=== PATIENT | female | born 1935 | race Caucasian/White ===

== ENCOUNTER 2020-06-06 07:45 | Outpatient (RCR) | payer MEDICARE, SELFPAY ==
[2019-12-01 10:46] VITALS: BMI 20.4
== END 2020-06-06 19:00 | disposition home or self-care (01) ==
LOC: PT 07:45
PROVIDERS: PCP Preventive Medicine Occupational Medicine; Referring Provider Specialist; Visit Provider Specialist
DX: M48.07 Spinal stenosis, lumbosacral region (principal); M70.72 Other bursitis of hip, left hip; M21.371 Foot drop, right foot

== ENCOUNTER 2020-07-04 07:39 | Emergency (ER) | payer MEDICARE, SELFPAY ==
[2019-12-01 10:46] VITALS: BMI 20.4
[2020-07-04 07:42] VITALS: BP 158/66; PULSE 59; RESP 16; TEMP 35.8; O2SAT 98; BMI 23.0
--- NOTE | 2020-07-04 07:43 | ED.VIS.GEN ---
History of Present Illness Chief Complaint: Hypoglycemia Limited by: Stupor Onset: Today Narrative: 85-year-old female presenting with hypoglycemia and altered mental status. She was found down on the road the after she went for a walk. On EMS arrival her blood sugar was in the 20s. They did give her D50 and she did come around but after arriving to the ED her blood sugar was again in the 20s. Her stated that she was otherwise well. He believed that she was on Lantus and she had taken this this morning. She does not take any other insulin. She does take metformin at home. He states that there is been no changes in the medications. Past Medical History - Allergies and Home Meds Allergies/Adverse Reactions: Allergies No Known Allergies Allergy (Unverified 12/01/19 10:47) Primary Care Physician: Antonino Rosario DO [Primary Care Provider] - Prior records reviewed: Yes Lives: Spouse/ Significant Other Smoking Status: Never smoker Alcohol: None Drugs: None Review of Systems General: Denies: Chills, Fever, Sweats Eyes: Denies: Visual changes - bilaterally, Diplopia ENT: Denies: Rhinorrhea, Sore throat Cardiovascular: Denies: Chest pain, Palpitations Respiratory: Denies: Dyspnea, Cough, Dyspnea on exertion Gastrointestinal: Denies: Abdominal pain, Nausea, Vomiting, Diarrhea, Melena, Hematochezia Musculoskeletal: Denies: Back pain, Extremity Pain Skin: Denies: Rash, Wounds Neurological: Denies: Headache, Weakness, Numbness Endocrine: Reports: - - Hypoglycemia Physical Exam Inital Vital Signs reviewed: Yes General: Well nourished, Acute Distress, - - Confused Head: Normocephalic, Atraumatic Eyes: Perrl, EOMI ENT: Moist mucous membranes Cardiovascular: Regular rate, Regular rhythm Respiratory: No distress Back: Nontender, Normal Inspection Extremities: Nontender, No edema Neurological: - - Alert but slightly confused. Diagnostic/Tx/Re-eval Clinical Impression(s) from Imaging Studies Brain CT 07/04/20 07:58 IMPRESSION: Chronic involutional changes of the brain. Electronically Signed: Desean Harris, at 9:17 EDT , Service support , Chest X-Ray 07/04/20 07:59 IMPRESSION: Borderline cardiomegaly. The lungs are clear. Electronically Signed: Desean Harris, at 9:17 EDT , Service support , Laboratory Data 07/04/20 07/04/20 07/04/20 08:20 08:20 08:36 WBC 9.2 RBC 3.70 L Hgb 10.5 L Hct 32.9 L MCV 88.9 MCH 28.4 MCHC 31.9 L RDW Std Deviation 44.1 H RDW Coeff of Viraj 13.5 Plt Count 232 MPV 8.5 Immature Gran % (Auto) 0.400 Neut % (Auto) 70.2 H Lymph % (Auto) 18.6 L [place] % (Auto) 9.1 Eos % (Auto) 1.6 Baso % (Auto) 0.1 Absolute Neuts (auto) 6.4 Absolute Lymphs (auto) 1.71 Nucleated RBC % 0 Sodium 140 Potassium 2.9 L Chloride 106 Carbon Dioxide 31.0 Anion Gap 3 L BUN 25 H Creatinine 0.77 Estim Creat Clear Calc 31.60 Est GFR (MDRD) Af Amer 91 Est GFR (MDRD) Non-Af 76 BUN/Creatinine Ratio 32.3 H Glucose 47 L Calcium 8.9 Magnesium 2.2 Total Bilirubin 0.30 AST 24 ALT 33 Alkaline Phosphatase 57 Troponin I < 0.015 Total Protein 6.9 Albumin 3.2 Globulin 3.7 Albumin/Globulin Ratio 0.9 Urine Color Urine Clarity Urine pH Ur Specific [place] Urine Protein Urine Glucose (UA) Urine Ketones Urine Occult Blood Urine Nitrite Urine Bilirubin Urine Urobilinogen Ur Leukocyte Esterase Urine RBC Urine WBC Ur Squamous Epith Cells Urine Bacteria Urine Mucus POC Glucose 29 L* 07/04/20 07/04/20 07/04/20 09:25 09:26 10:08 WBC RBC Hgb Hct MCV MCH MCHC RDW Std Deviation RDW Coeff of Viraj Plt Count MPV Immature Gran % (Auto) Neut % (Auto) Lymph % (Auto) [place] % (Auto) Eos % (Auto) Baso % (Auto) Absolute Neuts (auto) Absolute Lymphs (auto) Nucleated RBC % Sodium Potassium Chloride Carbon Dioxide Anion Gap BUN Creatinine Estim Creat Clear Calc Est GFR (MDRD) Af Amer Est GFR (MDRD) Non-Af BUN/Creatinine Ratio Glucose Calcium Magnesium Total Bilirubin AST ALT Alkaline Phosphatase Troponin I Total Protein Albumin Globulin Albumin/Globulin Ratio Urine Color Straw Urine Clarity Clear Urine pH 7.0 Ur Specific [place] 1.010 Urine Protein 15 H Urine Glucose (UA) 50 H Urine Ketones Negative Urine Occult Blood Negative Urine Nitrite Negative Urine Bilirubin Negative Urine Urobilinogen Normal Ur Leukocyte Esterase 25 H Urine RBC 0 SEEN Urine WBC 0 SEEN Ur Squamous Epith Cells 0 SEEN Urine Bacteria 0 SEEN Urine Mucus 0 SEEN POC Glucose 103 56 L 07/04/20 07/04/20 07/04/20 11:05 12:13 13:12 WBC RBC Hgb Hct MCV MCH MCHC RDW Std Deviation RDW Coeff of Viraj Plt Count MPV Immature Gran % (Auto) Neut % (Auto) Lymph % (Auto) [place] % (Auto) Eos % (Auto) Baso % (Auto) Absolute Neuts (auto) Absolute Lymphs (auto) Nucleated RBC % Sodium Potassium Chloride Carbon Dioxide Anion Gap BUN Creatinine Estim Creat Clear Calc Est GFR (MDRD) Af Amer Est GFR (MDRD) Non-Af BUN/Creatinine Ratio Glucose Calcium Magnesium Total Bilirubin AST ALT Alkaline Phosphatase Troponin I Total Protein Albumin Globulin Albumin/Globulin Ratio Urine Color Urine Clarity Urine pH Ur Specific [place] Urine Protein Urine Glucose (UA) Urine Ketones Urine Occult Blood Urine Nitrite Urine Bilirubin Urine Urobilinogen Ur Leukocyte Esterase Urine RBC Urine WBC Ur Squamous Epith Cells Urine Bacteria Urine Mucus POC Glucose 144 H 222 H 244 H - Rhythm Strip Rhythm Strip: Sinus Rhythm Rate: 52 - EKG Follow-up EKG Interpretation: Sinus Bradycardia - Medical Decision Making She presents with altered mental status and was found in the road by bystanders. EMS did find her blood sugar to be low. She was low again on arrival even after treatment. She was given 2 A of D50 in the ED at this point we decided to start her on D10. Her blood sugar was still dropping and we had to increase the rate of this. We did monitor her blood sugars until they remained higher. Patient was able to eat a meal. Work shows that she is slightly dehydrated. I did confirm that she had a change in medication the nurse did update the med list. Currently takes toujeo 30 units in the morning. She states that this is what she took today. She not has not been monitoring her blood sugars frequently. She states she has had no change in diet. The rest of her work-up was otherwise normal except for mild hypokalemia which was replaced orally. Patient was counseled to take more potassium at home and states that she does have this. EKG is sinus rhythm without signs of ischemia. Chest x-ray and CT of the brain are both negative. I do feel the patient is safe to be discharged home and I did touch base with her primary care provider and he recommended changing the dose of the medication to 25 units. She is to check her blood sugars more frequently. She and her feel comfortable with discharge at this time. Return for any new or worsening symptoms. Impression: 1. Hypoglycemia 2. Altered mental status resolved 3. Hypokalemia 4. Dehydration ED Disposition - Plan for ED Patient: Disposition: Home or Assisted Living Instructions: Hypokalemia, ED HYPOGLYCEMIA Insulin Rxn Referrals: Antonino Rosario DO [Primary Care Provider] -
--- NOTE | 2020-07-04 07:48 | ED.RN ---
NO OLD EKGS
[2020-07-04] MEDS: Dextrose 50%-Water 25 GM/50 ML DISP.SYRIN IV ×2 (07:55→08:39)
--- NOTE | 2020-07-04 07:58 | EKG12_ITS ---
Test Reason : AMS Blood Pressure : / mmHG Vent. Rate : 052 BPM Atrial Rate : 052 BPM P-R Int : 174 ms QRS Dur : 098 ms QT Int : 514 ms P-R-T Axes : 069 -27 025 degrees QTc Int : 478 ms Sinus bradycardia Left ventricular hypertrophy with repolarization abnormality Abnormal ECG Confirmed by RACHELLE OLIVAS, KENDAL ([id number]), editor & co founder CHRISTIAN INIGUEZ ([id number]) on 07/08/2020 10:44:16 AM Referred By: MELVINA Confirmed By:KENDAL BUSH MD
--- NOTE | 2020-07-04 07:58 | CT_ITS ---
STUDY: CT BRAIN WITHOUT CONTRAST REASON FOR EXAM: Female, 85 years old. FELL/DECREASED LOC RADIATION DOSAGE (If Supplied By Facility): CTDIvol = ( 60.81 ) mGy, DLP = ( 1089.89 ) mGycm TECHNIQUE: Transaxial CT imaging of the brain was performed without administration of intravenous contrast material. Individualized dose optimization techniques were used for this CT. COMPARISON: No relevant priors. FINDINGS: Normal soft tissue structures. Normal calvarium. There is mild cerebral atrophy with widening of the extra-axial spaces and ventricular dilatation. There are areas of decreased attenuation within the white matter tracts of the supratentorial brain, consistent with microvascular disease changes. 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 Normal brainstem. Normal cerebellum. There is no intracranial hemorrhage. There are no findings of an acute ischemic infarction. Atherosclerotic plaque formation of the vertebral arteries and cavernous portions of the internal carotid arteries bilaterally. Normal visualized paranasal sinuses. CT/Brain/Head without Contrast IMPRESSION: Chronic involutional changes of the brain. Electronically Signed: Desean Harris, at 9:17 EDT , Service support ,
[2020-07-04 07:59] VITALS: BP 130/53; PULSE 52; RESP 17; O2SAT 96
--- NOTE | 2020-07-04 07:59 | RAD_ITS ---
STUDY: X-RAY CHEST REASON FOR EXAM: Female, 85 years old. dysrhythmia, fell today TECHNIQUE: Single AP portable view of the chest. COMPARISON: None. FINDINGS: EKG electrodes are seen. The lungs are clear and expanded. There is no demonstrated pleural abnormality. There is borderline cardiomegaly. Normal mediastinum and maciej. Normal visualized pulmonary arteries. There is atherosclerotic calcification of the aortic arch with tortuosity. Normal visualized thoracic spine. Healed right rib fracture. There is no demonstrated abnormality of the visualized soft tissue structures of the upper abdomen. RAD/Chest 1 View (Portable) IMPRESSION: Borderline cardiomegaly. The lungs are clear. Electronically Signed: Desean Harris, at 9:17 EDT , Service support ,
[2020-07-04 08:28] LABS: Absolute Lymphocyte Count 1.71 X10^3/uL (0.83-4.51); Absolute Neutrophil Count 6.4 X10^3/uL (2.0-7.7); Basophil# 0.01 X10^3/uL; Basophil% 0.1 % (0-1); Eosinophil# 0.15 X10^3/uL; Eosinophils% 1.6 % (0-5); Hematocrit 32.9 % (37-47); Hemoglobin 10.5 g/dL (12.0-15.0); Lymphocyte # 1.71 X10^3/ul (4.0); Lymphocyte % 18.6 % (19-41); Mean Corp Hgb Conc 31.9 g/dL (32-36); Mean Corpuscular Hgb 28.4 pg (27.0-32.0); Mean Corpuscular Volume 88.9 fL (81-99); Mean Platelet Vol. 8.5 fl (6.2-12.0); Monocyte# 0.83 X10^3/uL; Monocyte% 9.1 % (0-10); NRBC Flagged by Analyzer 0 % (0-5); Neutrophil # 6.43 X10^3/uL (2.7-7.7); Neutrophil % 70.2 % (47-70); Platelet Count 232 K/mm3 (150-450); RBC Distribution Width CV 13.5 % (11.6-14.6); RBC Distribution Width SD 44.1 fl (35.1-43.9); White Blood Count 9.2 K/mm3 (4.4-11.0)
[2020-07-04 08:40] LABS: Bedside Glucose 29 mg/dL (70-110)
[2020-07-04] MEDS: Dextrose 10%-Water 250 ML 20 ML IV (08:54)
[2020-07-04 09:08] LABS: ALB/GLOB Ratio 0.9 RATIO (0.9-2.4); AST(SGOT) 24 U/L (15-37); Alanine Aminotransfer ALT/SGPT 33 U/L (13-56); Albumin, Serum 3.2 g/dL (3.2-5.0); Alkaline Phosphatase 57 U/L (45-117); Anion Gap 3 (5-15); BUN 25 mg/dL (7-18); BUN/Creat Ratio 32.3 RATIO (10-20); Calcium,Total 8.9 mg/dL (8.5-10.1); Chloride 106 mmol/L (98-107); Creatinine, Serum 0.77 mg/dL (0.55-1.02); EST Glomerular Filtration Rate 76 mL/min (>60); Est Glom Filt Rate - Afr Amer 91 mL/min (>60); Globulin 3.7 g/dL (2.2-4.2); Glucose 47 mg/dL (74-106); Magnesium 2.2 mg/dL (1.6-2.6); Potassium 2.9 mmol/L (3.5-5.1); Protein, Total 6.9 g/dL (6.4-8.2); Sodium Level 140 mmol/L (136-145)
[2020-07-04 09:28] LABS: Bacteria 0 SEEN /hpf (None Seen); Mucous, Urine 0 SEEN /hpf (<or=2+); Red Blood Cells-Urine 0 SEEN /hpf (0-5); Squamous Epithelial Cells - UA 0 SEEN /hpf (5-10); White Blood Cells 0 SEEN /hpf (0-5)
[2020-07-04 09:29] LABS: Color, Urine Straw (Yellow); Glucose, Dipstick 50 mg/dl (Normal); Ketone-Dipstick Negative (Negative); Leukocyte Esterase-Dipstick 25 /ul (Negative); Nitrite-Dipstick Negative (Negative); Occult Blood-Urine Negative /ul (Negative); Protein-Dipstick 15 mg/dl (Negative); Urine Bilirubin Dipstick Negative (Negative); Urine Clarity Clear (Clear); Urine Urobilinogen Normal (Normal)
[2020-07-04 09:30] LABS: Bedside Glucose 103 mg/dL (70-110)
[2020-07-04 10:20] LABS: Bedside Glucose 56 mg/dL (70-110)
--- NOTE | 2020-07-04 10:23 | ED.RN ---
pt's blood sugar rechecked and was 56, dr mohamud made aware, D10 increased and pt was given crackers with peanut butter and apple juice
[2020-07-04 11:10] LABS: Bedside Glucose 144 mg/dL (70-110)
[2020-07-04 12:01] VITALS: BP 141/88; PULSE 68; RESP 17
[2020-07-04 12:21] LABS: Bedside Glucose 222 mg/dL (70-110)
[2020-07-04 13:21] LABS: Bedside Glucose 244 mg/dL (70-110)
[2020-07-04 14:48] VITALS: BP 134/77; PULSE 66; RESP 15; O2SAT 95
[2020-07-04 15:55] LABS: Bedside Glucose 26 mg/dL (70-110)
[2020-07-04 15:55] LABS: Bedside Glucose 101 mg/dL (70-110)
== END 2020-07-04 14:49 | disposition home or self-care (01) ==
PROVIDERS: Emergency Provider Student in an Organized Health Care Education/Training Program; PCP Preventive Medicine Occupational Medicine
DX: E16.2 Hypoglycemia, unspecified (principal); E87.6 Hypokalemia; E86.0 Dehydration; R41.82 Altered mental status, unspecified
CPT/HCPCS: 70450; 71045; 80053; 81001; 82962; 83735; 84484; 85025; 93005; 96361; 96365; 96366; 96375; 96376; 99285; A4216

== ENCOUNTER → 2020-07-09 08:33 | Outpatient (CLI) | payer MEDICARE, SELFPAY ==
[2019-12-01 10:46] VITALS: BMI 20.4
[2020-07-04 07:42] VITALS: BMI 23.0
--- NOTE | 2020-07-09 09:51 | NEURO ---
NCS and/or EMG Patient Report Ordering Doctor: Judson Dhaliwal DATE OF SERVICE: 07/09/20
--- NOTE | 2020-07-09 12:25 | NEURO ---
NCS and/or EMG Patient Report Ordering Doctor: Judson Dhaliwal DATE OF SERVICE: 07/09/20 Geraldine Leslie presents for electrodiagnostic testing of the right lower limb. 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 Electrodiagnostic findings: Absent right peroneal motor response. Normal right tibial motor latency and amplitude with normal conduction velocity. Normal sural, superficial peroneal and medial plantar responses. H reflex is prolonged on the right side. On needle EMG, fibrillation potentials are noted in the right. BLS anterior. Tibialis with a decreased recruitment pattern and decreased amplitude of motor units. Decreased recruitment noted in the right peroneus longus. There is no denervation noted in the tibial innervated gastrocnemius as well as the sciatic innervated internal and external hamstrings. No denervation noted in the lumbosacral paraspinals. Electrodiagnostic impression: This is an abnormal study in the right lower limb. 1. 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 There is accompanying atrophy noted in the right tibialis anterior. There is no electrodiagnostic evidence noted for sciatic neuropathy as denervation is not noted in the hamstrings. Would recommend repeat study in 4 to 6 months to reevaluate peroneal nerve function. If there are any further questions, please do not hesitate to contact me
== END ==
PROVIDERS: PCP Preventive Medicine Occupational Medicine; Referring Provider Specialist; Visit Provider Specialist
DX: M21.371 Foot drop, right foot (principal)
CPT/HCPCS: 95886; 95910

== ENCOUNTER 2021-02-06 16:33 | Observation (INO) | payer MEDICARE, SELFPAY ==
[2021-02-06 16:35] VITALS: BP 168/76; PULSE 67; RESP 14; TEMP 36.4; O2SAT 97; BMI 20.1
--- NOTE | 2021-02-06 18:07 | EKG12_ITS ---
Test Reason : DYSRHYTHMIA Blood Pressure : / mmHG Vent. Rate : 060 BPM Atrial Rate : 060 BPM P-R Int : 000 ms QRS Dur : 088 ms QT Int : 426 ms P-R-T Axes : 000 -41 076 degrees QTc Int : 426 ms Sinus rhythm Left axis deviation Left ventricular hypertrophy with repolarization abnormality Abnormal ECG Confirmed by DOUGLAS OLIVAS, JEFF ([id number]), social media editor CHRISTIAN INIGUEZ ([id number]) on 02/09/2021 10:33:10 A M Referred By: RAMONA Confirmed By:ROBERT COLE MD
[2021-02-06] MEDS: Morphine 2 MG/ML Syringe IV ×2 (18:34→20:12)
[2021-02-06] MEDS: 0.9% Normal Saline 1,000 ML 1000 ML IV (18:35)
--- NOTE | 2021-02-06 18:40 | RAD_ITS ---
INDICATION: weakness EXAMINATION/TECHNIQUE: X-RAY - XR Chest 1 View COMPARISON: 07/04/2020. FINDINGS: The lungs are clear. Tortuous and calcified thoracic aorta. The heart is not enlarged. No pleural effusion or pneumothorax. The osseous structures are unremarkable. RAD/Chest 1 View (Portable) IMPRESSION: No acute radiographic abnormalities. Electronically Signed: Erickson Mercer MD at 19:03 EST Tel , Service support ,
[2021-02-06 18:53] LABS: Absolute Lymphocyte Count 1.47 X10^3/uL (0.83-4.51); Absolute Neutrophil Count 5.6 X10^3/uL (2.0-7.7); Basophil# 0.03 X10^3/uL; Basophil% 0.4 % (0-1); Eosinophil# 0.16 X10^3/uL; Hematocrit 38.7 % (37-47); Hemoglobin 13.2 g/dL (12.0-15.0); Lymphocyte # 1.47 X10^3/ul (4.0); Lymphocyte % 18.1 % (19-41); Mean Corp Hgb Conc 34.1 g/dL (32-36); Mean Corpuscular Hgb 28.9 pg (27.0-32.0); Mean Corpuscular Volume 84.9 fL (81-99); Mean Platelet Vol. 8.3 fl (6.2-12.0); Monocyte# 0.79 X10^3/uL; Monocyte% 9.7 % (0-10); NRBC Flagged by Analyzer 0 % (0-5); Neutrophil # 5.62 X10^3/uL (2.7-7.7); Neutrophil % 69.3 % (47-70); Platelet Count 310 K/mm3 (150-450); RBC Distribution Width CV 15.4 % (11.6-14.6); RBC Distribution Width SD 47.8 fl (35.1-43.9); Red Blood Count 4.56 M/mm3 (4.2-5.4); White Blood Count 8.1 K/mm3 (4.4-11.0)
--- NOTE | 2021-02-06 18:55 | ED.DCSUM_ITS ---
History of Present Illness Chief Complaint: Other, Pain/Inj Informant: Patient, Family Onset: Weeks Context: Gradual Onset Timing: Continuous Narrative: She is an 86-year-old female with history including insulin-dependent diabetes mellitus and hypertension presenting from home with her daughter for worsening left hip pain. Patient's had worsening left hip pain for the past 2 to 3 weeks. States the pain radiates down her buttocks and all the way to her foot. She does that she has a chronic foot drop of the right and usually depends on her left extremity more for walking. She is seeing her orthopedist, Dr. Dhaliwal, who performed an x-ray as well as a CT which did not show any acute process however he was unable to evaluate further for pelvic anomaly due to prosthesis of the left hip. She has a MRI scheduled for a week from today. Patient is currently on tramadol and is starting to have increased confusion and is still having significant pain. In addition she is been dealing with constipation associate with the tramadol. Patient is also been alternating Tylenol and ibuprofen for her pain. Patient was home with her who has sciatica and it is not able to help for her more. The family is unable to stay with her. They are concerned that she can no longer care for herself and is also acting more confused. Patient is having a hard time remembering her exact medications per the daughter. Patient has had decreased oral intake and is been complain of a dry mouth and also states she is drinking a lot of water. She denies any nausea or vomiting. She denies any associated abdominal pain. She denies any new injuries. Past Medical History - Allergies and Home Meds Allergies/Adverse Reactions: Allergies No Known Allergies Allergy (Verified 02/06/21 17:36) Primary Care Physician: Antonino Rosario DO [Primary Care Provider] - Past Medical History: - - Insulin-dependent diabetes mellitus, hypertension, hemorrhoids Surgical History: - - Left total hip, right partial hip Lives: Spouse/ Significant Other Smoking Status: Never smoker - Family History Maternal Family History: Reports: Heart Disease Review of Systems General: Reports: Weight loss. Denies: Chills, Fever, Sweats Eyes: Denies: Visual changes - bilaterally, Diplopia ENT: Reports: - - Dry mouth. Denies: Rhinorrhea, Sore throat Cardiovascular: Denies: Chest pain, Palpitations Respiratory: Denies: Dyspnea, Cough, Dyspnea on exertion Gastrointestinal: Reports: Constipation. Denies: Abdominal pain, Nausea, Vomiting, Diarrhea, Melena, Hematochezia Genitourinary: Denies: Dysuria, Hematuria, Frequency Musculoskeletal: Reports: Extremity Pain - Left hip and rating down the entire leg. Denies: Back pain, Swelling Skin: Denies: Rash, Wounds Neurological: Denies: Headache, Weakness, Numbness Endocrine: Reports: Polyuria, Polydipsia Physical Exam Vital Signs/Narrative: Vital Signs Temp Pulse Resp BP Pulse Ox 02/06/21 16:35 97.6 F L 67 14 168/76 H 97 Inital Vital Signs reviewed: Yes General: Well nourished, Well developed, No Acute Distress Head: Normocephalic, Atraumatic Eyes: Perrl, EOMI ENT: No rhinorrhea, Dry mucous membranes Neck: Supple, Nontender, No JVD Cardiovascular: Regular rate, Regular rhythm, No murmurs Respiratory: No distress, CTA bilaterally, Chest nontender Abdomen: Soft, Nontender, Nondistended, Normal bowel sounds Back: Nontender, Normal Inspection Extremities: No edema, Tenderness - Diffuse tenderness of the entire left lower extremity, - - No obvious deformity of the leg. Normal range of motion. Legs are equal length with no rotational abnormalities. Skin: Normal color, No rash Neurological: Alert, Oriented x3, Cranial nerves II-XII grossly intact, Normal Strength, Normal Sensation Psychological: Normal affect, Normal Mood Diagnostic/Tx/Re-eval Chest X-Ray - ED: 1 View, Read by ED Physician, No Acute Disease, - - Hyper inflated - Rhythm Strip Rhythm Strip: Sinus Rhythm Rate: 60 Ectopy: None - EKG Initial EKG Interpretation: Sinus Rhythm, - - Normal sinus rhythm at a rate of 60 Left axis deviation LVH Nonspecific T wave changes Normal intervals No change prior to prior EKG on 07/04/2020 - Medical Decision Making Patient is evaluated for progressively worsening left hip pain. In addition patient had increased confusion especially about her medications per her daughter and decreased oral intake. Patient's not been eating as much however she has been drinking more water because she feels that her mouth has been dry. Subsequently she has had increased urination. Patient lives home with her who does have a history of sciatica and feeling states is not very helpful because of this. No reported new injuries. Patient has had a generalized weakness and confusion so a metabolic infectious work-up is obtained. She has a normal neurologic exam and I do not think a head CT is ind icated. Patient has had evaluation of her hip including a CT and an x-ray by her orthopedist so did not repeat any imaging.Patient is dosed with 2 mg of IV morphine which does provide some temporary relief but she does require second dose. Her CBC is relatively normal. CMP is remarkable for hyponatremia of 128, hypokalemia of 3.4 and elevated carbon dioxide of 36. Patient states she does have a history of severe hyponatremia requiring hospitalization however this is worse than her last checkup. Urinalysis does show does show protein, glucose and occult blood but does not show any signs of infection. Troponin is normal. Chest x-ray does not show any acute process by my interpretation. Patient is neurovascularly intact. I do not think she requires emergent imaging for her hip however I am concerned about her ability to take care of her self at home especially as she is on high risk medications including IV insulin as well as multiple blood pressure medications. In addition patient has been more foggy and confused and not sure she is safe to go home. She is not having adequate pain control with tramadol and given her confusion she is already having I do not feel comfortable increasing her pain regimen at home. Patient does have mild hyponatremia. She is given IV fluids in the ER. Should be admitted for further evaluation of her hyponatremia as well as for evaluation of her hip pain and for pain control. Patient and family are amenable to rehab if deemed necessary. ED Disposition - Plan for ED Patient: Disposition: Acute Care [facility] Diagnosis: Acute left hip pain, Hypokalemia, Chronic hyponatremia Referrals: Antonino Rosario DO [Primary Care Provider] -
[2021-02-06 19:11] LABS: ALB/GLOB Ratio 0.9 RATIO (0.9-2.4); AST(SGOT) 37 U/L (15-37); Alanine Aminotransfer ALT/SGPT 37 U/L (13-56); Albumin, Serum 3.6 g/dL (3.2-5.0); Alkaline Phosphatase 60 U/L (45-117); Anion Gap 6 (5-15); BUN 13 mg/dL (7-18); BUN/Creat Ratio 17.4 RATIO (10-20); Calcium,Total 9.2 mg/dL (8.5-10.1); Chloride 86 mmol/L (98-107); Creatinine, Serum 0.75 mg/dL (0.55-1.02); EST Glomerular Filtration Rate 79 mL/min (>60); Est Glom Filt Rate - Afr Amer 95 mL/min (>60); Estimated Creatinine Clearance 32.47 ml/min; Glucose 125 mg/dL (74-106); Potassium 3.4 mmol/L (3.5-5.1); Protein, Total 7.6 g/dL (6.4-8.2); Sodium Level 128 mmol/L (136-145)
[2021-02-06 19:39] LABS: Bacteria 0 SEEN /hpf (None Seen); Mucous, Urine 0 SEEN /hpf (<or=2+); Squamous Epithelial Cells - UA 0 SEEN /hpf (5-10)
[2021-02-06 19:42] LABS: Color, Urine Yellow (Yellow); Glucose, Dipstick 100 mg/dl (Normal); Ketone-Dipstick Negative (Negative); Leukocyte Esterase-Dipstick Negative /ul (Negative); Nitrite-Dipstick Negative (Negative); Occult Blood-Urine 10 /ul (Negative); Protein-Dipstick 30 mg/dl (Negative); Urine Bilirubin Dipstick Negative (Negative); Urine Clarity Clear (Clear); Urine Urobilinogen Normal (Normal)
[2021-02-06 20:09] VITALS: BP 166/59; PULSE 71; RESP 16; O2SAT 96
[2021-02-06 20:49] LABS: Red Blood Cells-Urine 0-5 SEEN /hpf (0-5); White Blood Cells 0-5 SEEN /hpf (0-5)
[2021-02-06 21:08] VITALS: BP 157/71; PULSE 76; RESP 18; TEMP 36.6; O2SAT 95
[2021-02-06] MEDS: Potassium Chloride Oral Tablet 20 MEQ 40 MEQ PO (21:26)
[2021-02-06 22:01] VITALS: BMI 18.9
[2021-02-06 22:08] VITALS: BP 128/102; PULSE 69; RESP 18; TEMP 36.5; O2SAT 96
[2021-02-06 22:13] VITALS: BMI 19.0
[2021-02-06 22:18] LABS: Phosphorus 2.5 mg/dL (2.5-4.9)
--- NOTE | 2021-02-06 22:27 | PCM.HP.STD ---
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 Pain has been disabling and crippling that she cannot ambulate. She follows Dr. Dhaliwal and is scheduled for MRI on Tuesday. Patient also has chronic right foot drop after fall with resulting into the right hip fracture status post hemiarthroplasty about 1 or 2 years ago. She had left hip replacement about [address] Dhaliwal. She also complains of coccygeal pain. She denies any acute symptoms related to cauda equina-like acute urinary incontinence, retention or fecal incontinence. Patient states she gets groggy and confused on taking tramadol and probably has mild dementia. She is not clear any specific of the nature and characteristic of pain. She has x-rays and CT scan of left hip and pelvis done by Dr. Dhaliwal in the office is not available to review here. Chest x-ray done in ER does not show acute cardiopulmonary abnormality although not reported Past Medical History Past Medical History (Chronic Problems): Chronic Problems (Last Updated 12/01/19 @ 10:54 by Coleen Keane) Arthritis of left sacroiliac joint (Chronic) Hypertension (Chronic) Chronic hyponatremia (Chronic) Medical History: Medical History (Last Updated 12/01/19 @ 10:54 by Coleen Keane) Bloody stool K92.1 Diabetes E11.9 Hemorrhoids K64.9 HTN (hypertension) I10 Allergies No Known Allergies Allergy (Verified 02/06/21 17:36) Home Medications: Ambulatory Orders Medication Instructions Recorded amlodipine 10 mg tablet 10 mg PO DAILY 12/01/19 ascorbic acid (vitamin C) 1,000 mg 1,000 mg PO DAILY 12/01/19 tablet biotin 10,000 mcg capsule 1 cap PO DAILY 12/01/19 cholecalciferol (vitamin D3) 125 1 tab PO DAILY 12/01/19 mcg (5,000 unit) disintegrating tablet cinnamon bark 500 mg capsule 500 mg PO DAILY 12/01/19 coenzyme Q10 100 mg capsule 100 mg PO DAILY 12/01/19 garlic extract 600 mg tablet 600 mg PO DAILY 12/01/19 marine (Zingiber officinalis) 550 550 mg PO DAILY 12/01/19 mg capsule lutein 40 mg capsule 40 mg PO DAILY 12/01/19 magnesium 250 mg tablet 250 mg PO DAILY 12/01/19 metformin 500 mg tablet,extended 250 mg PO BID 12/01/19 release 24 hr metoprolol tartrate 50 mg tablet 100 mg PO QHS 12/01/19 niacin 500 mg tablet 1,000 mg PO DAILY 12/01/19 omega-3 acid ethyl esters 1 gram 2 cap PO BID 12/01/19 capsule red yeast rice 600 mg capsule 600 mg PO BID 12/01/19 turmeric 400 mg capsule 400 mg PO BID 12/01/19 Insulin Glargine,Hum.rec.anlog 23 unit SQ BREAKFAST 07/04/20 [Toumaricruz Thurmanostisrael] Metoprolol Tartrate 50 mg PO BREAKFAST 07/04/20 Triamterene 37.5MG/Hctz 25MG 1 cap PO DAILY PRN 07/04/20 [Dyazide (G)] Zinc Gluconate [Zinc] 100 mg PO DAILY 07/04/20 traMADol [Ultram (G)] 1 - 2 mg PO Q8 02/06/21 Surgical History: Surgical History (Last Updated 12/01/19 @ 10:54 by Coleen Keane) History of hip replacement Z96.649 Surgical History: - - Left total hip, right partial hip Lives: Spouse/ Significant Other Smoking Status: Never smoker - *Family History Maternal History Items: Heart Disease Review of Systems Constitutional: Denies: Chills, Fever, Weight Change HEENT: Denies: Head Aches, Sinus Congestion, Sinus Drainage Cardiovascular: Denies: Chest Pain, Palpitations Respiratory: Denies: Cough, Shortness of breath at rest, Sputum production Gastrointestinal: Denies: Abdominal Pain, Nausea, Vomiting Genitourinary: Denies: Dysuria, Frequency Musculoskeletal: Denies: Joint Pain, Joint Tenderness Skin: Denies: Rash, Wounds Neurological: Reports: Balance problems, Focal weakness, Incoordination. Denies: Numbness, Tingling Psychiatric: Reports: Anxiety, Depression. Denies: Homicidal Ideations, Suicidal Ideations Hematologic/ Lymphatic: Denies: Easy Bruising, Easy Bleeding VTE Information - Inpt Only VTE Present on Admission: No VTE Mechan Device Prophylaxis: None VTE Pharm Prophylaxis ordered?: Yes Objective: General: Alert, Oriented x3, Cooperative HEENT: Atraumatic, PERRLA, EOMI, Normocephalic Oral: No Gingival or Mucosal Lesions/ Ulcerations Neck: Supple, No JVD, Negative Carotid Bruits Lungs: Air entry equal in bilateral lung bases. No crepitation/rhonchi Cardiovascular: Regular rate, Regular Rhythm, Normal S1, Normal S2, No murmurs Abdomen: Bowel Sounds Present, Soft, Non Tender, Non-Distended : No renal angle tenderness. No suprapubic tenderness. Extremities: No edema, Capillary Refill Less than 3 Seconds chronic left foot drop on splint/brace Skin: No rashes, No breakdown Musculoskeletal: Mild tenderness at the left hip joint, deep at SI joint and around greater trochanter. ROM limited at left hip joint Spine: SLR negative at 30 degrees in both lower extremities. Point tenderness at coccyx. Neurological: Cranial nerves II-XII grossly intact, Deep Tendon Reflexes 2+/4 and Symmetrical, Neuro grossly intact Psych/Mental Status: Normal Affect, Appropriate. - Physical Exam Vitals/I&O's: Vital Signs Temp Pulse Resp BP Pulse Ox 97.7 F L 69 18 128/102 H 96 02/06/21 22:08 02/06/21 22:08 02/06/21 22:08 02/06/21 22:08 02/06/21 22:08 Oxygen Delivery Method Room Air Weight: 103 lb 9.876 oz Body Mass Index (BMI) 18.9 Finger Stick Blood Glucose 222 Intake and Output for Last 24 Hours 02/04/21 02/05/21 02/06/21 23:59 23:59 23:59 Intake Total 1000 / 1000 Balance 1000 / 1000 Laboratory Results 02/06/21 16:35: Urine Color Yellow, Urine Clarity Clear, Urine pH 7.0, Ur Specific [place] 1.010, Urine Protein 30 H, Urine Glucose (UA) 100 H, Urine Ketones Negative, Urine Occult Blood 10 H, Urine Nitrite Negative, Urine Bilirubin Negative, Urine Urobilinogen Normal, Ur Leukocyte Esterase Negative, Urine RBC 0-5 SEEN, Urine WBC 0-5 SEEN, Ur Squamous Epith Cells 0 SEEN, Urine Bacteria 0 SEEN, Urine Mucus 0 SEEN 02/06/21 18:41: WBC 8.1, RBC 4.56, Hgb 13.2, Hct 38.7, MCV 84.9, MCH 28.9, MCHC 34.1, RDW Std Deviation 47.8 H, RDW Coeff of Viraj 15.4 H, Plt Count 310, MPV 8.3, Immature Gran % (Auto) 0.500, Neut % (Auto) 69.3, Lymph % (Auto) 18.1 L, [place] % (Auto) 9.7, Eos % (Auto) 2.0, Baso % (Auto) 0.4, Absolute Neuts (auto) 5.6, Absolute Lymphs (auto) 1.47, Nucleated RBC % 0 02/06/21 18:41: Sodium 128 L, Potassium 3.4 L, Chloride 86 L, Carbon Dioxide 36.0 H, Anion Gap 6, BUN 13, Creatinine 0.75, Estim Creat Clear Calc 32.47, Est GFR (MDRD) Af Amer 95, Est GFR (MDRD) Non-Af 79, BUN/Creatinine Ratio 17.4, Glucose 125 H, Calcium 9.2, Total Bilirubin 0.50, AST 37, ALT 37, Alkaline Phosphatase 60, Troponin I < 0.015, Total Protein 7.6, Albumin 3.6, Globulin 4.0, Albumin/Globulin Ratio 0.9 02/06/21 18:41: Phosphorus 2.5, Magnesium 2.0 Current Medications Sodium Chloride () 250 mls @ 15 mls/hr IV .[id number] PRN PRN Reason: Saline Flush Sodium Chloride () 250 mls @ 15 mls/hr IV .[id number] PRN PRN Reason: Additional IVPB Infusion Potassium Chloride (Potassium Chloride Oral Tablet 20 Meq) 40 meq PO Q3H PAZ Stop: 02/07/21 00:01 Last Admin: 02/06/21 21:26 Dose: 40 meq Documented by: Sodium Chloride (0.9% Saline Lock 10 Ml Syringe) 10 - 40 ml IV UD PRN PRN Reason: SALINE FLUSH Assessment/Plan All Active Problems (Last Updated 12/01/19 @ 10:54 by Coleen Keane) Acute left hip pain (Acute) Diabetes 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 (Acute) Hypokalemia (Acute) 1. Acute debility secondary to left hip pain/SI joint pain: It seems acute exacerbation of chronic arthritis with inability to ambulate. Patient admitted to [facility]. Pain control. PT and OT evaluation and patient might need rehab placement. MRI of pelvis joint ordered after I talked to Dr. Dhaliwal. He prefers to be called after the MRI report although he is out of town. UA is negative. 2. Bilateral hip joint replacement, arthritis, chronic right foot drop on a splint 3. Hypertension: Blood pressure is normal 128/102 although it was elevated 168/76 in ED 4. Hypotonic hypovolemic hyponatremia, acute on chronic from diuretics: Patient is on triamterene/HCTZ. IV fluid normal saline for total of 2 L. Mild hypokalemia, potassium replaced. Serum magnesium and phosphorus are normal. Repeat lab tomorrow a.m. 5. Diabetes mellitus type 2: Patient is on Lantus continued. Accu-Chek is in just continue sliding scale. 6. 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 Prophylaxis: Lovenox 40 mg subcu daily. Living will/advanced directive/end of life care: Patient does not have living will or advanced directive. After discussion of benefits/risks procedures involved with full code, DNR CC arrest and DNR CC, the patient opted for DNR-CC Arrest with no intubation Patient does not want artificial life support including intubation, tube feed, ventilator and/chest compression, central venous catheter, vasopressor and DC shock if needed Total time spent in [id number] encounter in discussion of advanced directive 16 minutes. OBSV E&M: 53205 Initial observation care L3 Procedures: 34774 Advncd Care Plan 30 Min
[2021-02-06 22:30] VITALS: O2SAT 96
[2021-02-06] MEDS: oxyCODONE 5 MG Tablet PO (23:04)
[2021-02-06] MEDS: Senna/Docusate Sodium 1 Tablet 2 TABLET PO (23:04)
[2021-02-06] MEDS: Acetaminophen 325 MG Tablet 650 MG PO (23:04)
[2021-02-06] MEDS: 0.9% Normal Saline 1,000 ML 100 ML IV (23:08)
[2021-02-06 23:17] VITALS: BP 162/51
[2021-02-06 23:31] LABS: Bedside Glucose 110 mg/dL (70-110)
[2021-02-07] VITALS (7 sets, daily range): BP systolic 147–181; BP diastolic 59–80; PULSE 57–80; RESP 16–18; TEMP 36.2–37.4; O2SAT 96–100; BMI 18.9
[2021-02-07] MEDS: Potassium Chloride Oral Tablet 20 MEQ 40 MEQ PO ×2 (00:40→11:57)
[2021-02-07] MEDS: 0.9% Saline Lock 10 ML Syringe IV (02:56)
[2021-02-07] MEDS: Morphine 2 MG/ML Syringe IV (02:57)
[2021-02-07] MEDS: Metoprolol Tartrate 50 MG Tablet PO ×2 (04:59→21:29)
--- NOTE | 2021-02-07 05:55 | MRI_ITS ---
STUDY: MR PELVIS WITHOUT CONTRAST REASON FOR EXAM: Female, 86 years old. Left SI joint, pelvic/hip pain TECHNIQUE: Standardized fat and water weighted pulse sequences were obtained in all 3 orthogonal planes. COMPARISON: None. FINDINGS: Normal urinary bladder. Normal visualized small intestine. Normal visualized colon. There is no pelvic fluid. There is no pelvic mass lesion or lymphadenopathy. Normal visualized pelvic arteries. Normal osseous structures. There is very little soft tissue overlying the coccyx raising the possibility of a decubitus ulcer. However, there is no evidence of soft tissue edema to suggest cellulitis and no loculated fluid collection to suggest abscess. There is no bony destruction or marrow edema to suggest osteomyelitis. Status post bilateral hip arthroplasty with artifact. MRI/Pelvis (Routine) IMPRESSION: Questionable decubitus ulcer overlying the coccyx but no MR evidence of cellulitis abscess or osteomyelitis. Clinical correlation is recommended. Otherwise a normal MRI of the pelvis. Electronically Signed: Jaren Monroe MD at 13:19 EST Tel , Service support ,
[2021-02-07 06:45] LABS: Bedside Glucose 112 mg/dL (70-110)
--- NOTE | 2021-02-07 07:47 | PCM.PN.HOSP ---
Patient Problems: Active and Suspected Problems (Last Updated 12/01/19 @ 10:54 by Coleen Keane) Acute left hip pain (Acute) Diabetes 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 (Acute) Hypokalemia (Acute) Reason for Visit: Adult failure to thrive Left hip pain Subjective: Patient is an 86-year-old lady with multiple comorbidities including osteoarthritis with previous right hip total replacement who presented with significant left hip pain admitted to a monitored bed for subsequent evaluation Objective: GENERAL: cooperative HEENT: Atraumatic; EYES; Anicteric, Normal Conjunctiva NECK; supple, normal thyroid, RESPIRATORY: Diminished to auscultation CARDIOVASCULAR: Regular S1 S2, GI: soft, normoactive bowel sounds, : No Renal angle tenderness; EXTREMITIES: Right lower foot in a brace MUSCULOSKELETAL: no muscle waisting NEURO: Awake; no lateralizing signs. SKIN: No Rash PSYCH; Flat affect Vitals/I&O's: Vital Signs Temp Pulse Resp BP Pulse Ox 99.0 F 60 16 150/70 H 99 02/07/21 07:41 02/07/21 07:41 02/07/21 07:41 02/07/21 07:41 02/07/21 07:41 Oxygen Delivery Method Room Air Weight: 47 kg Body Mass Index (BMI) 18.9 Finger Stick Blood Glucose 222 Intake and Output for Last 24 Hours 02/05/21 02/06/21 02/07/21 23:59 23:59 23:59 Intake Total 1300 / 1300 600 / 600 Output Total 200 / 200 1250 / 1250 Balance 1100 / 1100 -650 / -650 Laboratory Results 02/06/21 16:35: Urine Color Yellow, Urine Clarity Clear, Urine pH 7.0, Ur Specific [place] 1.010, Urine Protein 30 H, Urine Glucose (UA) 100 H, Urine Ketones Negative, Urine Occult Blood 10 H, Urine Nitrite Negative, Urine Bilirubin Negative, Urine Urobilinogen Normal, Ur Leukocyte Esterase Negative, Urine RBC 0-5 SEEN, Urine WBC 0-5 SEEN, Ur Squamous Epith Cells 0 SEEN, Urine Bacteria 0 SEEN, Urine Mucus 0 SEEN 02/06/21 18:41: WBC 8.1, RBC 4.56, Hgb 13.2, Hct 38.7, MCV 84.9, MCH 28.9, MCHC 34.1, RDW Std Deviation 47.8 H, RDW Coeff of Viraj 15.4 H, Plt Count 310, MPV 8.3, Immature Gran % (Auto) 0.500, Neut % (Auto) 69.3, Lymph % (Auto) 18.1 L, [place] % (Auto) 9.7, Eos % (Auto) 2.0, Baso % (Auto) 0.4, Absolute Neuts (auto) 5.6, Absolute Lymphs (auto) 1.47, Nucleated RBC % 0 02/06/21 18:41: Sodium 128 L, Potassium 3.4 L, Chloride 86 L, Carbon Dioxide 36.0 H, Anion Gap 6, BUN 13, Creatinine 0.75, Estim Creat Clear Calc 32.47, Est GFR (MDRD) Af Amer 95, Est GFR (MDRD) Non-Af 79, BUN/Creatinine Ratio 17.4, Glucose 125 H, Calcium 9.2, Total Bilirubin 0.50, AST 37, ALT 37, Alkaline Phosphatase 60, Troponin I < 0.015, Total Protein 7.6, Albumin 3.6, Globulin 4.0, Albumin/Globulin Ratio 0.9 02/06/21 18:41: Phosphorus 2.5, Magnesium 2.0 02/06/21 23:14: POC Glucose 110 02/07/21 05:39: POC Glucose 112 H Current Medications Acetaminophen (Acetaminophen 325 Mg Tablet) 650 mg PO Q6H PRN PRN PRN Reason: Pain Score 1-10/Temp > 100.7 F Last Admin: 02/06/21 23:04 Dose: 650 mg Documented by: Amlodipine Besylate (Amlodipine 10 Mg Tablet) 10 mg PO DAILY PAZ Ascorbic Acid (Ascorbic Acid 500 Mg Tablet) 1,000 mg PO DAILY PAZ Dextrose (Dextrose 50%-Water 25 Gm/50 Ml Disp.Syrin) 0 gm IV X1 PRN; Protocol PRN Reason: Hypoglycemia Enoxaparin Sodium (Enoxaparin 40 Mg/0.4 Ml Syringe) 40 mg SC DAILY PAZ Glucagon (Glucagon 1 Mg/Ml Syringe) 1 mg IM .X1 PRN PRN Reason: Hypoglycemia Sodium Chloride () 250 mls @ 15 mls/hr IV .[id number] PRN PRN Reason: Saline Flush Sodium Chloride () 250 mls @ 15 mls/hr IV .[id number] PRN PRN Reason: Additional IVPB Infusion Sodium Chloride () 1,000 mls @ 100 mls/hr IV .Q10H [facility] Stop: 02/07/21 18:42 Last Admin: 02/06/21 23:08 Dose: 100 mls/hr Documented by: Insulin Glargine (Insulin Glargine 100 Units/Ml Pen) 23 units SC BREAKFAST [facility] Insulin Human Lispro (Insulin Lispro 100 Unit/Ml Insuln.Pen) 0 unit SC ACHS [facility]; Protocol Last Admin: 02/07/21 07:40 Dose: Not Given Documented by: Magnesium Chloride (Magnesium Chloride 64 Mg Delay Rel.Tablet) 64 mg PO DAILY [facility] Metformin HCl (Metformin (Xr) 500 Mg Tablet) 500 mg PO TIDCM [facility] Metoprolol Tartrate (Metoprolol Tartrate 50 Mg Tablet) 50 mg PO QHS [facility] Metoprolol Tartrate (Metoprolol Tartrate 50 Mg Tablet) 50 mg PO BREAKFAST [facility] Last Admin: 02/07/21 04:59 Dose: 50 mg Documented by: Morphine Sulfate (Morphine 2 Mg/Ml Syringe) 2 mg IV Q3H PRN PRN PRN Reason: Pain Score 6-10 Last Admin: 02/07/21 02:57 Dose: 2 mg Documented by: Nitroglycerin (Nitroglycerin (Inpatient Use) 0.4 Mg Tab.Subl) 0.4 mg SL Q5M PRN PRN Reason: CARDIAC/CHEST PAIN Nutritional Formula (Lactose Free) (Ensure Enlive 120 Ml Liquid) 120 ml PO 4X/DAY [facility] Oxycodone HCl (Oxycodone 5 Mg Tablet) 5 mg PO Q4H PRN PRN PRN Reason: Pain Score 4-5 Last Admin: 02/06/21 23:04 Dose: 5 mg Documented by: Prochlorperazine Edisylate (Prochlorperazine 10 Mg/2 Ml Vial) 5 mg IV Q4H PRN PRN PRN Reason: Breakthrough nausea/vomiting Senna/Docusate Sodium (Senna/Docusate Sodium 1 Tablet) 2 tablet PO BID PRN PRN PRN Reason: Constipation Last Admin: 02/06/21 23:04 Dose: 2 tablet Documented by: Sodium Chloride (0.9% Saline Lock 10 Ml Syringe) 10 - 40 ml IV UD PRN PRN Reason: SALINE FLUSH Last Admin: 02/07/21 02:56 Dose: 10 ml Documented by: STROKE Vital Signs/Narrative: Vital Signs Temp Pulse Resp BP Pulse Ox 02/07/21 07:41 99.0 F 60 16 150/70 H 99 02/07/21 04:59 72 181/72 H 02/07/21 04:56 98.4 F 72 18 181/72 H 100 Medical Necessity - Tobacco Use Smoking Status: Never smoker Assessment/Plan All Active Problems (Last Updated 12/01/19 @ 10:54 by Coleen Keane) Acute left hip pain (Acute) Diabetes 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 (Acute) Hypokalemia (Acute) Patient is an 86-year-old lady with multiple comorbidities including osteoarthritis with previous right hip total replacement who presented with significant left hip pain admitted to a monitored bed for subsequent evaluation 1. Physical debility ?Secondary to significant left hip pain. Admitted to a monitored bed for symptomatic management. As part of patient's management consult was placed to Dr. Dhaliwal with orthopedic surgery who recommended obtaining MRI of the pelvis 2. History of right total hip replacement ?This was complicated by right foot drop patient in a brace 3. Hypertension - Blood pressure controlled, home medications continued with dose adjustment as needed 4. Hyponatremia ?Secondary to patient being on HCTZ 5. Hypokalemia ?Corrected per protocol 6. Diabetes mellitus type II -patient's oral hypoglycemics held. Placed on long acting insulin, Accu-Cheks a.c. and at bedtime and covered with sliding scale insulin 7. DVT prophylaxis ?Lovenox OBSV E&M: 63307 Subsequent observation care L2
[2021-02-07] MEDS: metFORMIN (XR) 500 MG Tablet PO (08:05)
[2021-02-07] MEDS: oxyCODONE 5 MG Tablet PO ×4 (08:05→23:45)
[2021-02-07 08:33] LABS: Anion Gap 6 (5-15); BUN 7 mg/dL (7-18); BUN/Creat Ratio 11.8 RATIO (10-20); Chloride 94 mmol/L (98-107); Creatinine, Serum 0.59 mg/dL (0.55-1.02); EST Glomerular Filtration Rate 103 mL/min (>60); Est Glom Filt Rate - Afr Amer 124 mL/min (>60); Estimated Creatinine Clearance 30.52 ml/min; Glucose 121 mg/dL (74-106); Potassium 3.2 mmol/L (3.5-5.1); Sodium Level 132 mmol/L (136-145)
--- NOTE | 2021-02-07 10:40 | NT.THERAPY_ITS ---
Nutrition Therapy Report - History Nutrition Services has been consulted to:: Manage nutrient details of diet order Current diet / nutrition support order:: regular, ensure enlive 120mL 4x/day - Anthropometric Measurements Height:: 5 ft 2 in Weight:: 47 kg Body Mass Index (BMI):: 18.9 - Relevant Labs Relevant Labs:: RDW Std Deviation 47.8 fl (35.1-43.9) H 02/06/21 18:41 RDW Coeff of Viraj 15.4 % (11.6-14.6) H 02/06/21 18:41 Lymph % (Auto) 18.1 % (19-41) L 02/06/21 18:41 Sodium 132 mmol/L (136-145) L 02/07/21 07:38 Potassium 3.2 mmol/L (3.5-5.1) L 02/07/21 07:38 Chloride 94 mmol/L (98-107) L 02/07/21 07:38 Carbon Dioxide 36.0 mmol/L (21.0-32.0) H 02/06/21 18:41 Glucose 121 mg/dL (74-106) H 02/07/21 07:38 - Assessment Food / Nutrition-Related History:: Reports decline in appetite/intake chronically w/ recent worsening of PO intake d/t difficulty chewing. Describes fair intake at breakfast this AM. Believes UBW ~111# a couple of weeks ago, CBW 103.6#-7.4#/6.6% wt loss is significant for malnutrition. Tries to follow a low sugar diet at home. SMBG 2-3x/day w/ readings ranging from 110-140mg/dL. Does not drink ONS at home- adds a whey powder to cereal sometimes. Nutrition focused physical exam suggests severe muscle wasting and fat loss in upper extremities, acromion, and clavicle region. Pt has poor dentition and requests soft foods/cut up meats. - Nutrition Diagnosis Problem / Etiology / Signs & Symptoms (PES):: severe, acute malnutrition related to inadequate energy intake d/t pain, difficulty chewing as evidenced by wt loss of 7.4#/6.6% <1 month, estimated PO intake meeting <75% of nutritional needs, and severe muscle wasting/fat loss Evidence of Malnutrition Exists:: Yes Severe PCM:: Acute Illness - Nutrition Intervention Nutrition Prescription:: 8196-1375 calories/day (30 calories/kg). 45-55 g protein/day (1 g/kg). 1410mL fluid/day (30mL/kg) - Food / Nutrient Delivery Interventions Summary of nutrition intervention:: Pt has not yet tried ensure this admission- encouragement provided to try ONS. Discussed need for adequate protein. Pt ag reeable to selecting soft foods and having cut up meats provided from kitchen. Helped pt w/ meal selections and lunch order placed. Nutrition support ordered as / adjusted to:: Continue regular diet; will provide chopped up meats per pt request; continue ensure enlive 120mL 4x/day. Recommend RESPIRATORY THERAPY DIRECTOR consult if chewing difficulties continue to interfere w/ PO intake. - MNT Monitoring Further MNT monitoring and evaluation required?: Yes MNT Follow-up in:: 3-5 days
[2021-02-07] MEDS: Enoxaparin 40 MG/0.4 ML Syringe SC (10:55)
[2021-02-07] MEDS: 0.9% Normal Saline 1,000 ML 100 ML IV (10:55)
[2021-02-07] MEDS: Magnesium Chloride 64 MG Delay Rel.Tablet PO (10:56)
[2021-02-07] MEDS: Ascorbic Acid 500 MG Tablet 1000 MG PO (10:56)
[2021-02-07] MEDS: amLODIPine 10 MG Tablet PO (10:57)
[2021-02-07 12:06] LABS: Bedside Glucose 88 mg/dL (70-110)
--- NOTE | 2021-02-07 13:55 | CASEMGMT ---
SW met w/pt and in room in regard to prior level of function and anticipated discharge plan. Pt alert and able to answer most questions, though at times seemed to lose her place in answering questions and just needed a bit of redirection. PCP: Dr. Rosario Specialists: Dr. Cornejo for her eyes, Dr. Dhaliwal--orthopedic doc Insurance/Prescription Coverage: [facility] Living arrangements: Pt lives with in a condo, no steps to enter. Pt was able to complete her own ADLs until this leg pain recently started, then was pushing pt around the home on her rollator. Pt normally cooks, sets up her meds, completes personal ADLs. Pt does not take a shower but sponge bathes. was helping w/cleaning however he has an injury(sounds to be a hernia or sciatic pain from their description ) and is having a tougher time with this. is more the water tanker driver. Pt's daughter does also help pt with her medication as per . LNOK: , daughter SNF/HHC/DME: Pt reports to have been to the [facility] unit in the past, and if possible would like to go there again. Pt has a walker, rollator and raised toilet seat. Pt has had home health, pt and cannot remember agency however. SW spoke w/pt and in regard to discharge plan. Pt is agreeable to go somewhere for rehab. She has been to [facility], to their swing unit in the past, but from how pt explains it, pt had [place] [employer] Medicare at that time. SW did provide a list of nursing homes that includes quality and resource use data and is consistent w/pt's preferred geographic region, medial needs, and insurance network. SW explained that [facility] is not on the list but we can check on Tuesday to see if they take pt's insurance. Pt informed SW that she went there in the past, but again we reviewed that her insurance is different now and that we can check Tuesday to see if [facility] will take [facility]. We reviewed other options, and TCU is their next choice. SW explained to pt and that SW on Tuesday will follow up w/them as far as referral to SNF, will see if [facility] takes pt's insurance and if not will make a referral to TCU. Pt and state understanding. SW did call the TCU referral line and left a message. SW will follow up on Tuesday. JOSE Martinez
[2021-02-07] MEDS: Potassium Chloride Oral Tablet 20 MEQ PO (16:59)
[2021-02-07 17:00] LABS: Bedside Glucose 81 mg/dL (70-110)
[2021-02-07 21:30] LABS: Bedside Glucose 70 mg/dL (70-110)
[2021-02-08] VITALS (10 sets, daily range): BP systolic 143–200; BP diastolic 63–95; PULSE 82–102; RESP 16–18; TEMP 36.4–37.2; O2SAT 96–99
[2021-02-08] MEDS: oxyCODONE 5 MG Tablet PO ×4 (04:47→22:42)
[2021-02-08] MEDS: Triamterene 37.5MG/Hctz 25MG Capsule 1 CAP PO (05:43)
[2021-02-08 05:51] LABS: Bedside Glucose 131 mg/dL (70-110)
--- NOTE | 2021-02-08 07:27 | PN_ITS ---
Patient Problems: Active and Suspected Problems (Last Updated 12/01/19 @ 10:54 by Coleen Keane) Acute left hip pain (Acute) Diabetes 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 (Acute) Hypokalemia (Acute) Reason for Visit: Adult failure to thrive Left hip pain Subjective: Patient is an 86-year-old lady with multiple comorbidities including osteoarthritis with previous right hip total replacement who presented with significant left hip pain admitted to a monitored bed for subsequent evaluation 02/08/2021; imaging studies obtained on admission demonstrated Questionable decubitus ulcer overlying the coccyx but no MR evidence of cellulitis abscess or osteomyelitis.. Consult placed to case management plan is for patient to be transferred to TCU pending bed availability and insurance approval Objective: GENERAL: cooperative HEENT: Atraumatic; EYES; Anicteric, Normal Conjunctiva NECK; supple, normal thyroid, RESPIRATORY: Diminished to auscultation CARDIOVASCULAR: Regular S1 S2, GI: soft, normoactive bowel sounds, : No Renal angle tenderness; EXTREMITIES: Right lower foot in a brace MUSCULOSKELETAL: no muscle waisting NEURO: Awake; no lateralizing signs. SKIN: No Rash PSYCH; Flat affect Vitals/I&O's: Vital Signs Temp Pulse Resp BP Pulse Ox 97.5 F L 82 16 179/71 H 98 02/08/21 04:46 02/08/21 04:46 02/08/21 04:46 02/08/21 04:46 02/08/21 04:46 Oxygen Delivery Method Room Air Weight: 47 kg Body Mass Index (BMI) 18.9 Finger Stick Blood Glucose 222 Intake and Output for Last 24 Hours 02/06/21 02/07/21 02/09/21 23:59 23:59 00:59 Intake Total 1300 / 1300 2408.33 / 2658.33 450 / 450 Output Total 200 / 200 1250 / 1350 500 / 500 Balance 1100 / 1100 1158.33 / 1308.33 -50 / -50 Laboratory Results 02/07/21 05:39: POC Glucose 112 H 02/07/21 07:38: Sodium 132 L, Potassium 3.2 L, Chloride 94 L, Carbon Dioxide 32.0, Anion Gap 6, BUN 7, Creatinine 0.59, Estim Creat Clear Calc 30.52, Est GFR (MDRD) Af Amer 124, Est GFR (MDRD) Non-Af 103, BUN/Creatinine Ratio 11.8, Glucose 121 H, Calcium 9.0 02/07/21 11:55: POC Glucose 88 02/07/21 16:52: POC Glucose 81 02/07/21 21:25: POC Glucose 70 02/08/21 05:43: POC Glucose 131 H Current Medications Acetaminophen (Acetaminophen 325 Mg Tablet) 650 mg PO Q6H PRN PRN PRN Reason: Pain Score 1-10/Temp > 100.7 F Last Admin: 02/06/21 23:04 Dose: 650 mg Documented by: Amlodipine Besylate (Amlodipine 10 Mg Tablet) 10 mg PO DAILY [facility] Last Admin: 02/07/21 10:57 Dose: 10 mg Documented by: Ascorbic Acid (Ascorbic Acid 500 Mg Tablet) 1,000 mg PO DAILY [facility] Last Admin: 02/07/21 10:56 Dose: 1,000 mg Documented by: Dextrose (Dextrose 50%-Water 25 Gm/50 Ml Disp.Syrin) 0 gm IV X1 PRN; Protocol PRN Reason: Hypoglycemia Enoxaparin Sodium (Enoxaparin 40 Mg/0.4 Ml Syringe) 40 mg SC DAILY [facility] Last Admin: 02/07/21 10:55 Dose: 40 mg Documented by: Glucagon (Glucagon 1 Mg/Ml Syringe) 1 mg IM .X1 PRN PRN Reason: Hypoglycemia Hydralazine HCl (Hydralazine 20 Mg/Ml Vial) 10 mg IV Q4H PRN PRN PRN Reason: SBP>185 Insulin Glargine (Insulin Glargine 100 Units/Ml Pen) 23 units SC BREAKFAST [facility] Last Admin: 02/07/21 08:07 Dose: 23 u Documented by: Insulin Human Lispro (Insulin Lispro 100 Unit/Ml Insuln.Pen) 0 unit SC ACHS [facility]; Protocol Last Admin: 02/08/21 06:37 Dose: Not Given Documented by: Magnesium Chloride (Magnesium Chloride 64 Mg Delay Rel.Tablet) 64 mg PO DAILY [facility] Last Admin: 02/07/21 10:56 Dose: 64 mg Documented by: Metoprolol Tartrate (Metoprolol Tartrate 50 Mg Tablet) 50 mg PO BREAKFAST [facility] Last Admin: 02/07/21 04:59 Dose: 50 mg Documented by: Metoprolol Tartrate (Metoprolol Tartrate 100 Mg Tablet) 100 mg PO QHS [facility] Morphine Sulfate (Morphine 2 Mg/Ml Syringe) 2 mg IV Q3H PRN PRN PRN Reason: Pain Score 6-10 Last Admin: 02/07/21 02:57 Dose: 2 mg Documented by: Nitroglycerin (Nitroglycerin (Inpatient Use) 0.4 Mg Tab.Subl) 0.4 mg SL Q5M PRN PRN Reason: CARDIAC/CHEST PAIN Nutritional Formula (Lactose Free) (Ensure Enlive 120 Ml Liquid) 120 ml PO 4X/DAY PAZ Last Admin: 02/07/21 21:30 Dose: Not Given Documented by: Oxycodone HCl (Oxycodone 5 Mg Tablet) 5 mg PO Q4H PRN PRN PRN Reason: Pain Score 4-5 Last Admin: 02/08/21 04:47 Dose: 5 mg Documented by: Potassium Chloride (Potassium Chloride Oral Tablet 20 Meq) 20 meq PO DAILYCM [facility] Prochlorperazine Edisylate (Prochlorperazine 10 Mg/2 Ml Vial) 5 mg IV Q4H PRN PRN PRN Reason: Breakthrough nausea/vomiting Senna/Docusate Sodium (Senna/Docusate Sodium 1 Tablet) 2 tablet PO BID PRN PRN PRN Reason: Constipation Last Admin: 02/06/21 23:04 Dose: 2 tablet Documented by: Sodium Chloride (0.9% Saline Lock 10 Ml Syringe) 10 - 40 ml IV UD PRN PRN Reason: SALINE FLUSH Last Admin: 02/07/21 02:56 Dose: 10 ml Documented by: Triamterene/Hydrochlorothiazide (Triamterene 37.5mg/Hctz 25mg Capsule) 1 cap PO DAILY PRN PRN PRN Reason: Swelling Last Admin: 02/08/21 05:43 Dose: 1 cap Documented by: STROKE Vital Signs/Narrative: Vital Signs Temp Pulse Resp BP Pulse Ox 02/08/21 04:46 97.5 F L 82 16 179/71 H 98 Medical Necessity - Tobacco Use Smoking Status: Never smoker Assessment/Plan All Active Problems (Last Updated 12/01/19 @ 10:54 by Coleen Keane) Acute left hip pain (Acute) Diabetes 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 (Acute) Hypokalemia (Acute) Patient is an 86-year-old lady with multiple comorbidities including osteoarthritis with previous right hip total replacement who presented with significant left hip pain admitted to a monitored bed for subsequent evaluation 1. Physical debility ?Secondary to significant left hip pain. Admitted to a monitored bed for symptomatic management. As part of patient's management consult was placed to Dr. Dhaliwal with orthopedic surgery who recommended obtaining MRI of the pelvis -02/08/2021; imaging studies obtained on admission demonstrated Questionable decubitus ulcer overlying the coccyx but no MR evidence of cellulitis abscess or osteomyelitis.. Consult placed to case management plan is for patient to be transferred to TCU pending bed availability and insurance approval 2. History of right total hip replacement ?This was complicated by right foot drop patient in a brace 3. Hypertension - Blood pressure controlled, home medications continued with dose adjustment as needed 4. Hyponatremia ?Secondary to patient being on HCTZ 5. Hypokalemia ?Corrected per protocol 6. Diabetes mellitus type II -patient's oral hypoglycemics held. Placed on long acting insulin, Accu-Cheks a.c. and at bedtime and covered with sliding scale insulin 7. DVT prophylaxis ?Lovenox Inpatient E&M: 92535 [facility] Hosp L2
[2021-02-08] MEDS: Potassium Chloride Oral Tablet 20 MEQ PO (07:46)
[2021-02-08] MEDS: Magnesium Chloride 64 MG Delay Rel.Tablet PO (07:47)
[2021-02-08] MEDS: Metoprolol Tartrate 50 MG Tablet PO (07:47)
[2021-02-08] MEDS: Ascorbic Acid 500 MG Tablet 1000 MG PO (07:47)
[2021-02-08] MEDS: amLODIPine 10 MG Tablet PO (07:47)
[2021-02-08] MEDS: Enoxaparin 40 MG/0.4 ML Syringe SC (07:47)
[2021-02-08 09:22] LABS: Hematocrit 40.4 % (37-47); Mean Corp Hgb Conc 32.2 g/dL (32-36); Mean Corpuscular Hgb 27.9 pg (27.0-32.0); Mean Corpuscular Volume 86.7 fL (81-99); Mean Platelet Vol. 7.9 fl (6.2-12.0); Platelet Count 305 K/mm3 (150-450); RBC Distribution Width SD 50.3 fl (35.1-43.9); Red Blood Count 4.66 M/mm3 (4.2-5.4); White Blood Count 8.7 K/mm3 (4.4-11.0)
[2021-02-08 09:36] LABS: Anion Gap 9 (5-15); BUN 15 mg/dL (7-18); BUN/Creat Ratio 18.1 RATIO (10-20); Calcium,Total 9.4 mg/dL (8.5-10.1); Chloride 90 mmol/L (98-107); Creatinine, Serum 0.83 mg/dL (0.55-1.02); EST Glomerular Filtration Rate 70 mL/min (>60); Est Glom Filt Rate - Afr Amer 84 mL/min (>60); Estimated Creatinine Clearance 36.77 ml/min; Glucose 309 mg/dL (74-106); Magnesium 1.7 mg/dL (1.6-2.6); Potassium 3.9 mmol/L (3.5-5.1); Sodium Level 127 mmol/L (136-145)
[2021-02-08] MEDS: Insulin Lispro 100 UNIT/ML INSULN.PEN SC ×2 (11:27→21:08)
[2021-02-08 11:41] LABS: Bedside Glucose 332 mg/dL (70-110)
[2021-02-08] MEDS: Acetaminophen 325 MG Tablet 650 MG PO (16:46)
[2021-02-08] MEDS: hydrALAZINE 20 MG/ML Vial 10 MG IV (19:31)
[2021-02-08] MEDS: Metoprolol Tartrate 100 MG Tablet PO (20:59)
[2021-02-08 21:50] LABS: Bedside Glucose 194 mg/dL (70-110)
[2021-02-08 22:35] LABS: Bedside Glucose 80 mg/dL (70-110)
[2021-02-08] MEDS: hydrALAZINE 25 MG Tablet PO (22:41)
[2021-02-09] VITALS (10 sets, daily range): BP systolic 152–192; BP diastolic 57–92; PULSE 75–86; RESP 16–18; TEMP 36.7–37.2; O2SAT 96–99
[2021-02-09 02:19] LABS: Urine Chloride 55 mmol/L (Not Establ.); Urine Sodium 28 mmol/L (Not Establ.)
[2021-02-09] MEDS: oxyCODONE 5 MG Tablet PO ×4 (05:57→21:17)
[2021-02-09] MEDS: hydrALAZINE 25 MG Tablet PO ×3 (05:57→21:17)
[2021-02-09 06:36] LABS: Hematocrit 36.4 % (37-47); Hemoglobin 12.5 g/dL (12.0-15.0); Mean Corp Hgb Conc 34.3 g/dL (32-36); Mean Corpuscular Hgb 29.1 pg (27.0-32.0); Mean Corpuscular Volume 84.7 fL (81-99); Platelet Count 277 K/mm3 (150-450); RBC Distribution Width CV 15.9 % (11.6-14.6); RBC Distribution Width SD 48.6 fl (35.1-43.9); White Blood Count 9.2 K/mm3 (4.4-11.0)
[2021-02-09] MEDS: Insulin Lispro 100 UNIT/ML INSULN.PEN SC ×3 (06:57→16:49)
[2021-02-09 06:58] LABS: Anion Gap 6 (5-15); BUN 21 mg/dL (7-18); BUN/Creat Ratio 40.2 RATIO (10-20); Calcium,Total 9.1 mg/dL (8.5-10.1); Chloride 87 mmol/L (98-107); Creatinine, Serum 0.52 mg/dL (0.55-1.02); EST Glomerular Filtration Rate 118 mL/min (>60); Est Glom Filt Rate - Afr Amer 143 mL/min (>60); Estimated Creatinine Clearance 30.52 ml/min; Glucose 144 mg/dL (74-106); Magnesium 1.9 mg/dL (1.6-2.6); Potassium 3.9 mmol/L (3.5-5.1); Sodium Level 124 mmol/L (136-145)
[2021-02-09 07:05] LABS: Bedside Glucose 188 mg/dL (70-110)
--- NOTE | 2021-02-09 09:11 | CASEMGMT ---
Addendum entered by Emily Robertson 02/09/21 11:05: ALLIE placed another call to [facility] [place] and left message for Shaina inquiring if they accept pt's insurance or not. ALLIE still waiting for call back. Original Note: Social Work Note SW placed a call to Shaina at [facility] and left message inquiring if they accept pt's insurance. ALLIE waiting for call back. Emily Robertson BROADCAST JOURNALIST, HAND BINDER CUTTER
[2021-02-09] MEDS: amLODIPine 10 MG Tablet PO (09:43)
[2021-02-09] MEDS: Metoprolol Tartrate 50 MG Tablet PO (09:43)
[2021-02-09] MEDS: Ascorbic Acid 500 MG Tablet 1000 MG PO (09:43)
[2021-02-09] MEDS: Magnesium Chloride 64 MG Delay Rel.Tablet PO (09:43)
[2021-02-09] MEDS: Potassium Chloride Oral Tablet 20 MEQ PO (09:43)
[2021-02-09] MEDS: 0.9% Saline Lock 10 ML Syringe IV (09:44)
[2021-02-09] MEDS: Acetaminophen 325 MG Tablet 650 MG PO (09:44)
[2021-02-09] MEDS: Senna/Docusate Sodium 1 Tablet 2 TABLET PO ×2 (09:44→21:17)
[2021-02-09] MEDS: 0.9% Normal Saline 1,000 ML 200 ML IV (09:45)
[2021-02-09] MEDS: Enoxaparin 40 MG/0.4 ML Syringe SC (09:46)
--- NOTE | 2021-02-09 10:22 | CASEMGMT ---
SHANNON CM in to complete SCOTT form with patient. RN SAMUEL explained SCOTT form to patient, patient voiced understanding. Patient signed SCOTT form and filed in chart. Patient provided with copy of signed SCOTT form. Patient had no further questions or concerns at this time.
--- NOTE | 2021-02-09 11:30 | CASEMGMT ---
Addendum entered by Emily Robertson 02/09/21 13:59: ALLIE placed a call to [facility] and spoke with Neelam. SW asked Neelam about referral. Neelam states TCU has no beds available. SW informed Neelam that this worker spoke with staff earlier who had told this worker that they did have beds available. Neelam states they did have beds available but got 7 new admissions today so now they have no beds available. SW asked when they will have a bed available next. Neelam states they will have two discharges tomorrow but those beds have been called for as other pt's have received authorization and are waiting for beds. Neelam confirms no beds until maybe the end of the week. ALLIE informed Neelam to disregard referral then. ALLIE in to speak with pt. Pt currently on bathroom but door is open. Pt's present in room. SW updated pt and pt's that [facility] is now stating they have no beds available. SW informed pt and pt's that as far as this worker knows, pt's name is still on [facility] TCU list. Pt and pt's agreeable to [facility] TCU. ALLIE placed a call to Maria D with TCU. Maria D to submit for pre-cert. Plan: TCU pending pre-cert Original Note: Social Work Note SW received call from Karina at [facility] stating this worker needs to speak to the Transition Department ([phone]). ALLIE placed a call to The Transition [facility] and spoke with Staff. Staff state they do take pt's [employer] Medicare and states they have open beds available, requested referral be faxed to [phone]. ALLIE in to speak with pt. ALLIE updated pt that [facility] TCU is stating they do accept pt's insurance. Pt confirms she would like to try [facility] first as she has been there before. ALLIE faxed referral to [facility] TCU. SW waiting for call back to determine if they can accept pt or not. Plan: [facility] TCU pending acceptance and pre-cert Emily Robertson MILL REPRESENTATIVE, SUPERVISOR SANDING
[2021-02-09 11:50] LABS: Bedside Glucose 172 mg/dL (70-110)
--- NOTE | 2021-02-09 13:31 | PCM.PN.HOSP ---
Patient Problems: Active and Suspected Problems (Last Updated 12/01/19 @ 10:54 by Coleen Keane) Acute left hip pain (Acute) Diabetes 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 (Acute) Hypokalemia (Acute) Subjective: still with pain in left hip. Vitals/I&O's: Vital Signs Temp Pulse Resp BP Pulse Ox 37.1 C 86 18 182/80 H 98 02/09/21 09:41 02/09/21 09:43 02/09/21 09:41 02/09/21 09:41 02/09/21 09:41 Oxygen Delivery Method Room Air Weight: 47 kg Body Mass Index (BMI) 18.9 Finger Stick Blood Glucose 222 Intake and Output for Last 24 Hours 02/07/21 02/08/21 02/09/21 22:59 23:59 23:59 Intake Total 550 / 550 Output Total 1200 / 1200 Balance -650 / -650 General: Alert, No apparent distress HEENT: Atraumatic, Normocephalic Oral: Moist Mucosa, No Gingival or Mucosal Lesions/ Ulcerations Neck: No Nodes, Thyroid Normal Size and Texture Lungs: Clear to auscultation, Normal air movement, No rhonchi, No wheeze, No rales Cardiovascular: Regular rate, Regular Rhythm, Normal S1, Normal S2, No murmurs Abdomen: Bowel Sounds Present, Soft, Non Tender, Non-Distended, No Hepato-splenomegaly Extremities: No edema, No Calf Tenderness Psych/Mental Status: Normal Affect, Appropriate Laboratory Results 02/08/21 17:20: POC Glucose 80 02/08/21 20:44: POC Glucose 194 H 02/09/21 02:00: Ur Random Sodium 28, Urine Creatinine 47.50, Urine Potassium 63.0, Urine Chloride 55 02/09/21 06:26: WBC 9.2, RBC 4.30, Hgb 12.5, Hct 36.4 L, MCV 84.7, MCH 29.1, MCHC 34.3 D, RDW Std Deviation 48.6 H, RDW Coeff of Viraj 15.9 H, Plt Count 277, MPV 8.0 02/09/21 06:26: Sodium 124 L, Potassium 3.9, Chloride 87 L, Carbon Dioxide 31.0, Anion Gap 6, BUN 21 H, Creatinine 0.52 L, Estim Creat Clear Calc 30.52, Est GFR (MDRD) Af Amer 143, Est GFR (MDRD) Non-Af 118, BUN/Creatinine Ratio 40.2 H, Glucose 144 H, Calcium 9.1, Magnesium 1.9 02/09/21 06:53: POC Glucose 188 H 02/09/21 11:41: POC Glucose 172 H Current Medications Acetaminophen (Acetaminophen 325 Mg Tablet) 650 mg PO Q6H PRN PRN PRN Reason: Pain Score 1-10/Temp > 100.7 F Last Admin: 02/09/21 09:44 Dose: 650 mg Documented by: Amlodipine Besylate (Amlodipine 10 Mg Tablet) 10 mg PO DAILY [facility] Last Admin: 02/09/21 09:43 Dose: 10 mg Documented by: Ascorbic Acid (Ascorbic Acid 500 Mg Tablet) 1,000 mg PO DAILY [facility] Last Admin: 02/09/21 09:43 Dose: 1,000 mg Documented by: Dextrose (Dextrose 50%-Water 25 Gm/50 Ml Disp.Syrin) 0 gm IV X1 PRN; Protocol PRN Reason: Hypoglycemia Enoxaparin Sodium (Enoxaparin 40 Mg/0.4 Ml Syringe) 40 mg SC DAILY [facility] Last Admin: 02/09/21 09:46 Dose: 40 mg Documented by: Glucagon (Glucagon 1 Mg/Ml Syringe) 1 mg IM .X1 PRN PRN Reason: Hypoglycemia Hydralazine HCl (Hydralazine 20 Mg/Ml Vial) 10 mg IV Q4H PRN PRN PRN Reason: SBP>185 Last Admin: 02/08/21 19:31 Dose: 10 mg Documented by: Hydralazine HCl (Hydralazine 25 Mg Tablet) 25 mg PO TID [facility] Last Admin: 02/09/21 05:57 Dose: 25 mg Documented by: Sodium Chloride () 1,000 mls @ 200 mls/hr IV .Q5H [facility] Stop: 02/09/21 13:34 Last Admin: 02/09/21 09:45 Dose: 200 mls/hr Documented by: Insulin Glargine (Insulin Glargine 100 Units/Ml Pen) 23 units SC BREAKFAST [facility] Last Admin: 02/09/21 09:42 Dose: 23 u Documented by: Insulin Human Lispro (Insulin Lispro 100 Unit/Ml Insuln.Pen) 0 unit SC ACHS [facility]; Protocol Last Admin: 02/09/21 11:43 Dose: 2 u Documented by: Magnesium Chloride (Magnesium Chloride 64 Mg Delay Rel.Tablet) 64 mg PO DAILY [facility] Last Admin: 02/09/21 09:43 Dose: 64 mg Documented by: Metoprolol Tartrate (Metoprolol Tartrate 50 Mg Tablet) 50 mg PO BREAKFAST [facility] Last Admin: 02/09/21 09:43 Dose: 50 mg Documented by: Metoprolol Tartrate (Metoprolol Tartrate 100 Mg Tablet) 100 mg PO QHS [facility] Last Admin: 02/08/21 20:59 Dose: 100 mg Documented by: Morphine Sulfate (Morphine 2 Mg/Ml Syringe) 2 mg IV Q3H PRN PRN PRN Reason: Pain Score 6-10 Last Admin: 02/07/21 02:57 Dose: 2 mg Documented by: Nitroglycerin (Nitroglycerin (Inpatient Use) 0.4 Mg Tab.Subl) 0.4 mg SL Q5M PRN PRN Reason: CARDIAC/CHEST PAIN Nutritional Formula (Lactose Free) (Ensure Enlive 120 Ml Liquid) 120 ml PO 4X/DAY [facility] Last Admin: 02/09/21 09:26 Dose: Not Given Documented by: Oxycodone HCl (Oxycodone 5 Mg Tablet) 5 mg PO Q4H PRN PRN PRN Reason: Pain Score 4-5 Last Admin: 02/09/21 09:44 Dose: 5 mg Documented by: Potassium Chloride (Potassium Chlor[facility] Oral [facility]t 20 [facility]) [facility] Last Admin: 02/09/21 09:43 Dose: 20 meq Documented by: Prochlorperazine Edisylate (Prochlorperazine 10 Mg/2 Ml Vial) 5 mg IV Q4H PRN PRN PRN Reason: Breakthrough nausea/vomiting Senna/Docusate Sodium (Senna/Docusate Sodium 1 Tablet) 2 tablet PO BID PRN PRN PRN Reason: Constipation Last Admin: 02/09/21 09:44 Dose: 2 tablet Documented by: Sodium Chloride (0.9% Saline Lock 10 Ml Syringe) 10 - 40 ml IV UD PRN PRN Reason: SALINE FLUSH Last Admin: 02/09/21 09:44 Dose: 10 ml Documented by: STROKE Vital Signs/Narrative: Vital Signs Temp Pulse Resp BP Pulse Ox 02/09/21 09:43 86 02/09/21 09:41 37.1 C 86 18 182/80 H 98 Medical Necessity - Tobacco Use Smoking Status: Never smoker Assessment/Plan All Active Problems (Last Updated 12/01/19 @ 10:54 by Coleen Keane) Acute left hip pain (Acute) Diabetes 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 (Acute) Hypokalemia (Acute) 1. left hip pain work up unremarkable follow up with orthopaedics PRN 2. Hyponatremia ongoing plan: IVF recheck 3. Debility eventually to SNF. OBSV E&M: 83140 Subsequent observation care L2
[2021-02-09 14:46] LABS: Anion Gap 7 (5-15); BUN 22 mg/dL (7-18); BUN/Creat Ratio 30.5 RATIO (10-20); Calcium,Total 8.7 mg/dL (8.5-10.1); Chloride 93 mmol/L (98-107); Creatinine, Serum 0.72 mg/dL (0.55-1.02); EST Glomerular Filtration Rate 82 mL/min (>60); Est Glom Filt Rate - Afr Amer 99 mL/min (>60); Estimated Creatinine Clearance 30.52 ml/min; Glucose 128 mg/dL (74-106); Potassium 3.5 mmol/L (3.5-5.1); Sodium Level 128 mmol/L (136-145)
--- NOTE | 2021-02-09 15:15 | CASEMGMT ---
Social Work Note Per admissions counselor questions, pt has completed HCPOA and LW and provided copies to [facility]. SW reviewed chart, no copies on file. SW updated pt that no copies were found on chart. Emily Robertson BAKERY TEAM MEMBER, CT SCAN SPECIAL PROCEDURES TECHNOLOGIST
--- NOTE | 2021-02-09 16:43 | PCM.TXEXTCAR ---
- Diet 02/06/21 22:43 Diet: Regular - General Food consistency:: Regular Liquid Consistency:: Regular/Thin Diet Comments: chopped up meats - Routine Orders/Code Status Routine Lab Work: CBC, BMP Code Status: DNRCC-A - no intubation - Therapies Physical Therapy: Eval and Treat Occupational Therapy: Eval and Treat - Allergies/Procedures Done in Hospital Allergies/Adverse Reactions: Allergies No Known Allergies Allergy (Verified 02/06/21 17:36) - Type of Care/Length of Stay Estimated LOS: Convalescent Care Less Than 30 days Type of Care Needed: Skilled Rehab Potential: Fair Prognosis: Fair - Additional Orders/Day of Discharge Day of Discharge: 02/09/21 - Dietary and Speech Recommendations Dietitian Recommendations/Changes: Continue regular diet; will provide chopped up meats per pt request; continue ensure enlive 120mL 4x/day - Follow Up Care Primary Care Physician: Antonino Rosario DO [Primary Care Provider] - Within 2 Weeks Please Follow Up With: Judson Dhaliwal MD When: as needed for hip pain
--- NOTE | 2021-02-09 16:44 | CASEMGMT ---
Social Work Note ALLIE received call from Maria D with TCU stating pre-cert was obtained, pt can admit to TCU today. SW in to speak with pt and pt's Chau. SW updated pt and Chau on approval to TCU, possibly discharge today. ALLIE updated pt an Chau that TCU/any SNF has no visitors for 14 days due to pt needing to isolate for those 14 days. ALLIE explained that pt will be able to video chat and make phone calls. SW provided support to pt and reiterated that pt is just going for short term SNF. SW updated pt and Chau that when pt discharges is up to the physician and that it could still be tonight. Chau states he is going home. ALLIE informed Chau that staff can call him if pt discharges to TCU tonight so he is aware. ALLIE placed green sheet on chart. ALLIE wrote on green sheet for staff to call Chau if pt discharges tonight. ALLIE updated payroll secretary too to call Chau if pt discharges. ALLIE placed a call to RN and updated her that pt was approved for TCU and could discharge tonight if medically cleared. RN asked if this worker called pt's daughter to update. ALLIE attempted to call pt's daughter Luz to update, no answer, voicemail full and unable to leave message. Plan: TCU Emily Robertson DATABASE ADMINISTRATION PROJECT MANAGER, MOLD SHIFTER
--- NOTE | 2021-02-09 16:45 | PCM.DC.SUM ---
Discharge Date and Diagnosis - Problem List Patient Problems: Active and Suspected Problems (Last Updated 12/01/19 @ 10:54 by Coleen Keane) Acute left hip pain (Acute) Diabetes 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 (Acute) Hypokalemia (Acute) Date of Admission: 02/06/21 Date of Discharge: 02/09/21 - Primary Discharge Diagnosis Acute Problems: Active Problems (Last Updated 12/01/19 @ 10:54 by Coleen Keane) Acute left hip pain (Acute) Diabetes 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 (Acute) Hypokalemia (Acute) - Secondary Discharge Diagnosis Chronic Problems: Chronic Problems (Last Updated 12/01/19 @ 10:54 by Coleen Keane) Arthritis of left sacroiliac joint (Chronic) Hypertension (Chronic) Chronic hyponatremia (Chronic) Hospital Course and Treatment Imaging Results: Clinical Impression(s) from Imaging Studies Chest X-Ray 02/06/21 18:40 IMPRESSION: No acute radiographic abnormalities. Electronically Signed: Erickson Mercer MD at 19:03 EST Tel , Service support , Pelvis MRI 02/07/21 05:55 IMPRESSION: Questionable decubitus ulcer overlying the coccyx but no MR evidence of cellulitis abscess or osteomyelitis. Clinical correlation is recommended. Otherwise a normal MRI of the pelvis. Electronically Signed: Jaren Monroe MD at 13:19 EST Tel , Service support , Operations: None Procedures: None Summary of Care Provided: The patient is a 86 year old F [] 1. left hip pain work up unremarkable follow up with orthopaedics PRN 2. Hyponatremia improved plan: 2/2 to triamterene/HCTZ 3. Debility eventually to SNF. Patient Problems: Active and Suspected Problems (Last Updated 12/01/19 @ 10:54 by Coleen Keane) Acute left hip pain (Acute) Diabetes 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 (Acute) Hypokalemia (Acute) - Physical Exam Vitals/I&O's: Vital Signs Temp Pulse Resp BP Pulse Ox 36.7 C 78 18 153/62 H 97 02/09/21 14:24 02/09/21 14:24 02/09/21 14:24 02/09/21 14:24 02/09/21 14:24 Oxygen Delivery Method Room Air Weight: 47 kg Body Mass Index (BMI) 18.9 Finger Stick Blood Glucose 222 Intake and Output for Last 24 Hours 02/07/21 02/08/21 02/09/21 22:59 23:59 23:59 Intake Total 1550 / 1550 Output Total 1200 / 1200 Balance 350 / 350 Microbiology Past 72 Hours 02/09/21 14:10 Mucosa - Nose SARS-CoV-2 Antigen (Rapid) - Final Laboratory Results 02/08/21 17:20: POC Glucose 80 02/08/21 20:44: POC Glucose 194 H 02/09/21 02:00: Ur Random Sodium 28, Urine Creatinine 47.50, Urine Potassium 63.0, Urine Chloride 55 02/09/21 06:26: WBC 9.2, RBC 4.30, Hgb 12.5, Hct 36.4 L, MCV 84.7, MCH 29.1, MCHC 34.3 D, RDW Std Deviation 48.6 H, RDW Coeff of Viraj 15.9 H, Plt Count 277, MPV 8.0 02/09/21 06:26: Sodium 124 L, Potassium 3.9, Chloride 87 L, Carbon Dioxide 31.0, Anion Gap 6, BUN 21 H, Creatinine 0.52 L, Estim Creat Clear Calc 30.52, Est GFR (MDRD) Af Amer 143, Est GFR (MDRD) Non-Af 118, BUN/Creatinine Ratio 40.2 H, Glucose 144 H, Calcium 9.1, Magnesium 1.9 02/09/21 06:53: POC Glucose 188 H 02/09/21 11:41: POC Glucose 172 H 02/09/21 14:17: Sodium 128 L, Potassium 3.5, Chloride 93 L, Carbon Dioxide 28.0, Anion Gap 7, BUN 22 H, Creatinine 0.72, Estim Creat Clear Calc 30.52, Est GFR (MDRD) Af Amer 99, Est GFR (MDRD) Non-Af 82, BUN/Creatinine Ratio 30.5 H, Glucose 128 H, Calcium 8.7 Current Medications Acetaminophen (Acetaminophen 325 Mg Tablet) 650 mg PO Q6H PRN PRN PRN Reason: Pain Score 1-10/Temp > 100.7 F Last Admin: 02/09/21 09:44 Dose: 650 mg Documented by: Amlodipine Besylate (Amlodipine 10 Mg Tablet) 10 mg PO DAILY [facility] Last Admin: 02/09/21 09:43 Dose: 10 mg Documented by: Ascorbic Acid (Ascorbic Acid 500 Mg Tablet) 1,000 mg PO DAILY [facility] Last Admin: 02/09/21 09:43 Dose: 1,000 mg Documented by: Dextrose (Dextrose 50%-Water 25 Gm/50 Ml Disp.Syrin) 0 gm IV X1 PRN; Protocol PRN Reason: Hypoglycemia Enoxaparin Sodium (Enoxaparin 40 Mg/0.4 Ml Syringe) 40 mg SC DAILY [facility] Last Admin: 02/09/21 09:46 Dose: 40 mg Documented by: Glucagon (Glucagon 1 Mg/Ml Syringe) 1 mg IM .X1 PRN PRN Reason: Hypoglycemia Hydralazine HCl (Hydralazine 20 Mg/Ml Vial) 10 mg IV Q4H PRN PRN PRN Reason: SBP>185 Last Admin: 02/08/21 19:31 Dose: 10 mg Documented by: Hydralazine HCl (Hydralazine 25 Mg Tablet) 25 mg PO TID [facility] Last Admin: 02/09/21 14:21 Dose: 25 mg Documented by: Insulin Glargine (Insulin Glargine 100 Units/Ml Pen) 23 units SC BREAKFAST [facility] Last Admin: 02/09/21 09:42 Dose: 23 u Documented by: Insulin Human Lispro (Insulin Lispro 100 Unit/Ml Insuln.Pen) 0 unit SC ACHS [facility]; Protocol Last Admin: 02/09/21 11:43 Dose: 2 u Documented by: Magnesium Chloride (Magnesium Chloride 64 Mg Delay Rel.Tablet) 64 mg PO DAILY [facility] Last Admin: 02/09/21 09:43 Dose: 64 mg Documented by: Metoprolol Tartrate (Metoprolol Tartrate 50 Mg Tablet) 50 mg PO BREAKFAST [facility] Last Admin: 02/09/21 09:43 Dose: 50 mg Documented by: Metoprolol Tartrate (Metoprolol Tartrate 100 Mg Tablet) 100 mg PO QHS [facility] Last Admin: 02/08/21 20:59 Dose: 100 mg Documented by: Morphine Sulfate (Morphine 2 Mg/Ml Syringe) 2 mg IV Q3H PRN PRN PRN Reason: Pain Score 6-10 Last Admin: 02/07/21 02:57 Dose: 2 mg Documented by: Nitroglycerin (Nitroglycerin (Inpatient Use) 0.4 Mg Tab.Subl) 0.4 mg SL Q5M PRN PRN Reason: CARDIAC/CHEST PAIN Nutritional Formula (Lactose Free) (Ensure Enlive 120 Ml Liquid) 120 ml PO 4X/DAY [facility] Last Admin: 02/09/21 16:23 Dose: Not Given Documented by: Oxycodone HCl (Oxycodone 5 Mg Tablet) 5 mg PO Q4H PRN PRN PRN Reason: Pain Score 4-5 Last Admin: 02/09/21 14:19 Dose: 5 mg Documented by: Potassium Chloride (Potassium Chloride [facility] Tablet 20 [facility]) [facility] Admin: 02/09/21 09:43 Dose: 20 meq Documented by: Prochlorperazine Edisylate (Prochlorperazine 10 Mg/2 Ml Vial) 5 mg IV Q4H PRN PRN PRN Reason: Breakthrough nausea/vomiting Senna/Docusate Sodium (Senna/Docusate Sodium 1 Tablet) 2 tablet PO BID PRN PRN PRN Reason: Constipation Last Admin: 02/09/21 09:44 Dose: 2 tablet Documented by: Sodium Chloride (0.9% Saline Lock 10 Ml Syringe) 10 - 40 ml IV UD PRN PRN Reason: SALINE FLUSH Last Admin: 02/09/21 09:44 Dose: 10 ml Documented by: Discharge Diet: No Restrictions Home Medications: Medications to take at Discharge amlodipine 10 mg tablet 10 mg PO DAILY 12/01/19 ascorbic acid (vitamin C) 1,000 mg tablet 1,000 mg PO DAILY 12/01/19 biotin 10,000 mcg capsule 1 cap PO DAILY 12/01/19 cholecalciferol (vitamin D3) 125 mcg (5,000 unit) disintegrating tablet 1 tab PO DAILY 12/01/19 cinnamon bark 500 mg capsule 500 mg PO DAILY 12/01/19 coenzyme Q10 100 mg capsule 100 mg PO DAILY 12/01/19 garlic extract 600 mg tablet 600 mg PO DAILY 12/01/19 marine (Zingiber officinalis) 550 mg capsule 550 mg PO DAILY 12/01/19 lutein 40 mg capsule 40 mg PO DAILY 12/01/19 magnesium 250 mg tablet 250 mg PO DAILY 12/01/19 metformin 500 mg tablet,extended release 24 hr 500 mg PO TIDCM 12/01/19 metoprolol tartrate 50 mg tablet 100 mg PO QHS 12/01/19 niacin 500 mg tablet 1,000 mg PO DAILY 12/01/19 omega-3 acid ethyl esters 1 gram capsule 2 cap PO BID 12/01/19 red yeast rice 600 mg capsule 600 mg PO BID 12/01/19 turmeric 400 mg capsule 400 mg PO BID 12/01/19 Insulin Glargine,Hum.rec.anlog [Toujeo Solostar] 23 unit SQ BREAKFAST 07/04/20 Metoprolol Tartrate 50 mg PO BREAKFAST 07/04/20 Zinc Gluconate [Zinc] 100 mg PO DAILY 07/04/20 Acetaminophen [Tylenol Tablet] 650 mg PO Q6H PRN PRN tab 02/09/21 Ensure Enlive 120 ml PO 4X/DAY liquid 02/09/21 Primary Care Physician: Antonino Rosario DO [Primary Care Provider] - Within 2 Weeks Please Follow Up With: Judson Dhaliwal MD When: as needed for hip pain Minutes spent on discharge:: 28 Patient Condition:: Fair Medical Necessity - Tobacco Use Smoking Status: Never smoker Meaningful Use Info Meaningful Use Diagnoses (Choose all that apply): None applicable Inpatient E&M: 93341 Disch Hosp
[2021-02-09 16:55] LABS: Bedside Glucose 230 mg/dL (70-110)
--- NOTE | 2021-02-09 18:27 | CASEMGMT ---
Social Work Below interaction occurring on 02/09/2021 between 1745 and 1814 1746 - Telephone call received from MT3 nurse. MT3 reporting to have received a phone call from [facility], Alyssa ([phone]) reporting that there is an open bed and that [facility] will be able to accept patient. Nursing staff reports that patient is wanting to go to [facility] and does not want to discharge to [facility] as was planned for today. 1747 - This manager social responsibility reviewed patient chart and noted that patient has [employer] insurance and that precert was obtained for [facility] as earlier today there was no open beds at [facility]. 1748 - Telephone call to Alyssa at number listed above. No answer. Voicemail left. 1750 - Telephone call to [facility] unit, Neelam. Neelam reports to not be aware of patient name or that patient is to be admitting. Neelam confirms to have open beds. 1758 - This manager social responsibility going to [facility] unit, patient daughter, Luz ([phone]) on phone with nursing staff and asking multiple questions. This manager social responsibility then speaking with Luz. Luz reports concerns for patient mental health if patient is unable to transition to [facility] as she knows the place. This social explaining situation and process of getting precert changed but also that currently do not have a confirms acceptance to [facility] as was unable to speak with Alyssa. Luz reports they are taking her. Luz reports to have connections. This manager social responsibility to speak with patient and medical team and get back to Luz. 180 - This manager social responsibility speaking with patient in room. Patient confirms to want to discharge to [facility] as it will be better. Patient aware that percert will need to be obtained by [facility] and unable to facilitate discharge [facility] tonight as also unable to confirm that patient is accepted. Patient states I am accepted, my friend told me that I am. Patient reports that patient friend works tat [facility]. Active support and listening provided. 1809 - Collaborating with Dr. Araujo and nursing staff, discharge has been canceled for tonight with tentative plan for patient to transition to [facility] tomorrow. 1812 - Telephone call to patient daughter, Luz, voicemail left. No answer. 1814 - Telephone call to [facility], updated that patient will not be coming tonight. Patient, patient spouse (Chau), nursing, and Dr. Araujo all agreeable and updated on plan. PLAN: Tentative discharge to [facility] tomorrow pending precert and acceptance. Social work to continue to follow. Hilda Mary OPTICAL GLASS WET INSPECTOR, JOSE
--- NOTE | 2021-02-09 19:20 | PCA ---
DAUGHTER GAVE ME NUMBER OF PERSON SHE TALKED TO SAYING THEY HAVE A BED FOR [facility]. NAME TORRIE NUMBER [phone]
[2021-02-09] MEDS: Metoprolol Tartrate 100 MG Tablet PO (21:16)
[2021-02-09 21:36] LABS: Bedside Glucose 148 mg/dL (70-110)
[2021-02-10] VITALS (12 sets, daily range): BP systolic 143–173; BP diastolic 51–80; PULSE 71–95; RESP 16–18; TEMP 36.6–36.9; O2SAT 95–100
[2021-02-10] MEDS: 0.9% Saline Lock 10 ML Syringe IV (03:54)
[2021-02-10] MEDS: oxyCODONE 5 MG Tablet PO ×4 (03:59→21:54)
[2021-02-10] MEDS: hydrALAZINE 25 MG Tablet PO ×3 (04:47→21:50)
[2021-02-10 05:19] LABS: Hematocrit 32.9 % (37-47); Hemoglobin 10.9 g/dL (12.0-15.0); Mean Corp Hgb Conc 33.1 g/dL (32-36); Mean Corpuscular Hgb 28.7 pg (27.0-32.0); Mean Corpuscular Volume 86.6 fL (81-99); Mean Platelet Vol. 8.4 fl (6.2-12.0); Platelet Count 252 K/mm3 (150-450); RBC Distribution Width CV 16.2 % (11.6-14.6); RBC Distribution Width SD 50.3 fl (35.1-43.9)
[2021-02-10 05:35] LABS: Anion Gap 4 (5-15); BUN 19 mg/dL (7-18); BUN/Creat Ratio 37.3 RATIO (10-20); Calcium,Total 8.9 mg/dL (8.5-10.1); Chloride 98 mmol/L (98-107); Creatinine, Serum 0.51 mg/dL (0.55-1.02); EST Glomerular Filtration Rate 122 mL/min (>60); Est Glom Filt Rate - Afr Amer 148 mL/min (>60); Estimated Creatinine Clearance 30.52 ml/min; Glucose 132 mg/dL (74-106); Potassium 3.7 mmol/L (3.5-5.1); Sodium Level 130 mmol/L (136-145)
[2021-02-10 06:55] LABS: Bedside Glucose 134 mg/dL (70-110)
--- NOTE | 2021-02-10 08:55 | CASEMGMT ---
Addendum entered by Emily Robertson 02/10/21 10:14: ALLIE spoke with Maria D with TCU and updated her on pt's case. Maria D states she will reach out to her reviewer with [employer] and give the reviewer a heads up on pt's case. ALLIE informed Maria D that this worker asked [facility] to let this worker know if they can accept pt or not and once this worker knows this worker will update Maria D. Maria D would need to cancel [facility] if pt is accepted to [facility] so they can submit for pre-cert. SW waiting for call back from [facility]. SW will call [facility] if this worker doesn't hear from staff soon. Original Note: Social Work Note SW reviewed notes from last night. Apparently [facility] now has beds available and pt and pt's daughter Luz wishes [facility]. ALLIE placed a call to [facility] and spoke with Shaina. Shaina confirms they have a couple beds available but stated that pt will need pre-cert and there are a few other pt's that are waiting for authorization. Shaina states that if the other pt's on the waitlist pre-certs are obtained before pt's pre-cert is obtained then those individuals would get the beds and not pt. SW informed Shaina that pt is medically ready for discharge today, Shaina again states it just depends on when pre-certs are obtained. Shaina states to fax over referral and she will submit for pre-cert if they can accept pt. SW asked Shaina to let this worker know if they can accept pt or not. [facility] Emily Robertson MEDICAL CASH POSTER, GLAZING DEPARTMENT SUPERVISOR
[2021-02-10] MEDS: amLODIPine 10 MG Tablet PO (09:33)
[2021-02-10] MEDS: Potassium Chloride Oral Tablet 20 MEQ PO (09:33)
[2021-02-10] MEDS: Acetaminophen 325 MG Tablet 650 MG PO ×3 (09:33→21:57)
[2021-02-10] MEDS: Magnesium Chloride 64 MG Delay Rel.Tablet PO (09:34)
[2021-02-10] MEDS: Ascorbic Acid 500 MG Tablet 1000 MG PO (09:34)
[2021-02-10] MEDS: Metoprolol Tartrate 50 MG Tablet PO (09:34)
[2021-02-10] MEDS: Senna/Docusate Sodium 1 Tablet 2 TABLET PO (09:34)
[2021-02-10] MEDS: Enoxaparin 40 MG/0.4 ML Syringe SC (09:34)
--- NOTE | 2021-02-10 11:06 | CASEMGMT ---
Social Work Note ALLIE placed a call to [facility] and spoke with Alicia. Alicia confirms they are able to accept pt and has submitted for pre-cert. ALLIE specifically asked Alicia that if pre-cert is obtained, can pt admit today as pt is medically ready. Alicia states she will possibly have a bed available today. ALLIE placed a call to Maria D with TCU and asked her to cancel pre-cert on her end as [facility] has submitted for pre-cert. Plan: [facility] Pending pre-cert Emily Robertson TRAFFIC RATE CLERK, BOBBIN CLEANING MACHINE OPERATOR
[2021-02-10 12:26] LABS: Bedside Glucose 122 mg/dL (70-110)
--- NOTE | 2021-02-10 14:30 | CASEMGMT ---
Addendum entered by Emily Robertson 02/10/21 15:41: ALLIE placed another call to Shaina at [facility] and left message requesting update on pre-cert and bed availability. ALLIE also asked Shaina about visitation policy as it was relayed to this worker that they do allow visitors on their Swing Bed Unit. SW still waiting for call back from [facility]. Addendum entered by Emily Robertson 02/10/21 15:17: ALLIE received call from pt's daughter Luz requesting update. ALLIE informed Luz that pre-cert has been obtained and this worker is waiting to hear back from [facility] to confirm bed availability. Luz states she was told they have beds available. ALLIE informed Luz again that this worker is waiting for bed confirmation, will update Luz when this worker knows. Luz states understanding. Original Note: Social Work Note ALLIE received message from Alicia at [facility] stating pre-cert has been obtained but they will not have any beds until . ALLIE placed a call back to Alicia and informed Alicia that pt wanted to go to [facility] not [facility]. Alicia states she handles referrals for both places but they are two completely different buildings. ALLIE again informed Alicia that pt wishes to go to [facility]. Alicia states she will need to update [employer] on different facility and will speak with Shaina who handles [facility]. ALLIE also placed a call to Shaina ([phone]) at [facility] (who this worker did call twice yesterday) and she never returned this worker's phone call and left message again confirming with her that pt wants to admit to [facility] and not [facility] and asked if she can speak to Alicia regarding referral. ALLIE received update that pt's daughter Luz called in wanting to speak to this worker. ALLIE will call Luz once this worker confirms with [facility]. ALLIE then updated that the determining factor in pt going to [facility] is that they are allowing visitors. ALLIE not aware of this, will check with staff once this worker hears from appropriate [facility] staff. Plan: [facility] Swing Bed Unit pending acceptance Emily Robertson [employer], PET CARE ASSISTANT
--- NOTE | 2021-02-10 15:21 | PCM.PN.HOSP ---
Patient Problems: Active and Suspected Problems (Last Updated 12/01/19 @ 10:54 by Coleen Keane) Acute left hip pain (Acute) Diabetes 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 (Acute) Hypokalemia (Acute) Subjective: Patient change her mind and did not want to go to TCU and wanted go to [facility]. She and her decide to go there instead because they know someone who told her they have a bed but also they apparently have less stringent visiting hours in TCU. Vitals/I&O's: Vital Signs Temp Pulse Resp BP Pulse Ox 36.6 C 72 18 147/69 H 98 02/10/21 15:09 02/10/21 15:09 02/10/21 15:09 02/10/21 15:09 02/10/21 15:09 Oxygen Delivery Method Room Air Weight: 47 kg Body Mass Index (BMI) 18.9 Finger Stick Blood Glucose 222 Intake and Output for Last 24 Hours 02/08/21 02/09/21 02/10/21 23:59 23:59 23:59 Intake Total 1850 / 1850 400 / 400 Output Total 1200 / 1200 Balance 650 / 650 400 / 400 General: Alert, No apparent distress HEENT: Atraumatic, Normocephalic Psych/Mental Status: Normal Affect, Appropriate Microbiology Past 72 Hours 02/09/21 14:10 Mucosa - Nose SARS-CoV-2 Antigen (Rapid) - Final Laboratory Results 02/09/21 16:47: POC Glucose 230 H 02/09/21 21:07: POC Glucose 148 H 02/10/21 04:52: WBC 7.0, RBC 3.80 L, Hgb 10.9 L, Hct 32.9 L, MCV 86.6, MCH 28.7, MCHC 33.1, RDW Std Deviation 50.3 H, RDW Coeff of Viraj 16.2 H, Plt Count 252, MPV 8.4 02/10/21 04:52: Sodium 130 L, Potassium 3.7, Chloride 98, Carbon Dioxide 28.0, Anion Gap 4 L, BUN 19 H, Creatinine 0.51 L, Estim Creat Clear Calc 30.52, Est GFR (MDRD) Af Amer 148, Est GFR (MDRD) Non-Af 122, BUN/Creatinine Ratio 37.3 H, Glucose 132 H, Calcium 8.9 02/10/21 06:46: POC Glucose 134 H 02/10/21 12:18: POC Glucose 122 H Current Medications Acetaminophen (Acetaminophen 325 Mg Tablet) 650 mg PO Q6H PRN PRN PRN Reason: Pain Score 1-10/Temp > 100.7 F Last Admin: 02/10/21 09:33 Dose: 650 mg Documented by: Amlodipine Besylate (Amlodipine 10 Mg Tablet) 10 mg PO DAILY [facility] Last Admin: 02/10/21 09:33 Dose: 10 mg Documented by: Ascorbic Acid (Ascorbic Acid 500 Mg Tablet) 1,000 mg PO DAILY [facility] Last Admin: 02/10/21 09:34 Dose: 1,000 mg Documented by: Dextrose (Dextrose 50%-Water 25 Gm/50 Ml Disp.Syrin) 0 gm IV X1 PRN; Protocol PRN Reason: Hypoglycemia Enoxaparin Sodium (Enoxaparin 40 Mg/0.4 Ml Syringe) 40 mg SC DAILY [facility] Last Admin: 02/10/21 09:34 Dose: 40 mg Documented by: Glucagon (Glucagon 1 Mg/Ml Syringe) 1 mg IM .X1 PRN PRN Reason: Hypoglycemia Hydralazine HCl (Hydralazine 20 Mg/Ml Vial) 10 mg IV Q4H PRN PRN PRN Reason: SBP>185 Last Admin: 02/08/21 19:31 Dose: 10 mg Documented by: Hydralazine HCl (Hydralazine 25 Mg Tablet) 25 mg PO TID [facility] Last Admin: 02/10/21 04:47 Dose: 25 mg Documented by: Insulin Glargine (Insulin Glargine 100 Units/Ml Pen) 23 units SC BREAKFAST [facility] Last Admin: 02/10/21 09:36 Dose: 23 u Documented by: Insulin Human Lispro (Insulin Lispro 100 Unit/Ml Insuln.Pen) 0 unit SC ACHS [facility]; Protocol Last Admin: 02/10/21 12:20 Dose: Not Given Documented by: Magnesium Chloride (Magnesium Chloride 64 Mg Delay Rel.Tablet) 64 mg PO DAILY [facility] Last Admin: 02/10/21 09:34 Dose: 64 mg Documented by: Metoprolol Tartrate (Metoprolol Tartrate 50 Mg Tablet) 50 mg PO BREAKFAST [facility] Last Admin: 02/10/21 09:34 Dose: 50 mg Documented by: Metoprolol Tartrate (Metoprolol Tartrate 100 Mg Tablet) 100 mg PO QHS [facility] Last Admin: 02/09/21 21:16 Dose: 100 mg Documented by: Morphine Sulfate (Morphine 2 Mg/Ml Syringe) 2 mg IV Q3H PRN PRN PRN Reason: Pain Score 6-10 Last Admin: 02/07/21 02:57 Dose: 2 mg Documented by: Nitroglycerin (Nitroglycerin (Inpatient Use) 0.4 Mg Tab.Subl) 0.4 mg SL Q5M PRN PRN Reason: CARDIAC/CHEST PAIN Nutritional Formula (Lactose Free) (Ensure Enlive 120 Ml Liquid) 120 ml PO 4X/DAY [facility] Last Admin: 02/10/21 12:40 Dose: Not Given Documented by: Oxycodone HCl (Oxycodone 5 Mg Tablet) 5 mg PO Q4H PRN PRN PRN Reason: Pain Score 4-5 Last Admin: 02/10/21 14:40 Dose: 5 mg Documented by: Potassium Chloride (Potassium Chloride Oral Tablet 20 Meq) [facility] Admin: 02/10/21 09:33 Dose: 20 meq Documented by: Prochlorperazine Edisylate (Prochlorperazine 10 Mg/2 Ml Vial) 5 mg IV Q4H PRN PRN PRN Reason: Breakthrough nausea/vomiting Senna/Docusate Sodium (Senna/Docusate Sodium 1 Tablet) 2 tablet PO BID PRN PRN PRN Reason: Constipation Last Admin: 02/10/21 09:34 Dose: 2 tablet Documented by: Sodium Chloride (0.9% Saline Lock 10 Ml Syringe) 10 - 40 ml IV UD PRN PRN Reason: SALINE FLUSH Last Admin: 02/10/21 03:54 Dose: 10 ml Documented by: STROKE Vital Signs/Narrative: Vital Signs Temp Pulse Resp BP Pulse Ox 02/10/21 15:09 36.6 C 72 18 147/69 H 98 Medical Necessity - Tobacco Use Smoking Status: Never smoker Assessment/Plan All Active Problems (Last Updated 12/01/19 @ 10:54 by Coleen Keane) Acute left hip pain (Acute) Diabetes 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 (Acute) Hypokalemia (Acute) 1. left hip pain work up unremarkable follow up with orthopaedics PRN 2. Hyponatremia Improved. Secondary to triamterene/HCTZ. Continue to hold this medication. 3. Debility eventually to SNF. 4. Disposition: Awaiting a precertification on [facility]. Discussed with patient's at bedside. Inpatient E&M: 50581 [facility] Hosp L1
--- NOTE | 2021-02-10 16:20 | CASEMGMT ---
Social Work Note ALLIE placed a call to transition care unit at [place] and spoke with Alicia. ALLIE asked to speak with Shaina or to whomever that can provide update to this worker on pt. Alicia states she can provide update. Alicia states Sabina from [facility] finally got back to her and pre-cert had to be completed resubmitted. Alicia confirms that [facility] is stating they have a bed available for pt, planning on discharge tomorrow. ALLIE asked Alicia that if pre-cert is obtained tonight could pt admit to [facility] tonight still as pt is medically ready. Alicia states she will check for pre-cert until she leaves, pt could still admit tonight pending pre-cert but [facility] but she will continue to check for pre-cert until she leaves tonight. ALLIE asked Alicia to call [facility] SW if pre-cert is obtained and if pt can admit to [facility] tonight as again pt is medically ready for discharge. ALLIE provided Alicia with [facility] SW number. ALLIE placed a call to [facility] ED SW and updated her. ALLIE updated Charge Nurse and RN. ALLIE placed Green sheet on chart and wrote on Green sheet that pt cannot discharge until [facility] SW gives approval. Green sheet on chart and transport form on pt's chart. [facility] Emily Robertson RIVER RAFTING GUIDE, FINISH CLEANER
[2021-02-10 17:11] LABS: Bedside Glucose 63 mg/dL (70-110)
[2021-02-10 20:25] LABS: Bedside Glucose 120 mg/dL (70-110)
[2021-02-10 21:00] LABS: Bedside Glucose 164 mg/dL (70-110)
[2021-02-10] MEDS: Metoprolol Tartrate 100 MG Tablet PO (21:51)
[2021-02-11] VITALS (8 sets, daily range): BP systolic 116–173; BP diastolic 61–82; PULSE 75–95; RESP 16–18; TEMP 36.7–36.9; O2SAT 95–100
[2021-02-11] MEDS: oxyCODONE 5 MG Tablet PO ×2 (01:52→14:32)
[2021-02-11] MEDS: hydrALAZINE 25 MG Tablet PO (04:36)
[2021-02-11 06:40] LABS: Bedside Glucose 106 mg/dL (70-110)
[2021-02-11 06:57] LABS: Hematocrit 32.9 % (37-47); Hemoglobin 11.2 g/dL (12.0-15.0); Mean Corpuscular Hgb 28.9 pg (27.0-32.0); Mean Corpuscular Volume 84.8 fL (81-99); Mean Platelet Vol. 8.2 fl (6.2-12.0); Platelet Count 264 K/mm3 (150-450); RBC Distribution Width CV 16.4 % (11.6-14.6); RBC Distribution Width SD 50.4 fl (35.1-43.9); Red Blood Count 3.88 M/mm3 (4.2-5.4); White Blood Count 6.9 K/mm3 (4.4-11.0)
[2021-02-11 07:24] LABS: Anion Gap 7 (5-15); BUN 17 mg/dL (7-18); BUN/Creat Ratio 34.1 RATIO (10-20); Calcium,Total 8.9 mg/dL (8.5-10.1); Chloride 98 mmol/L (98-107); EST Glomerular Filtration Rate 125 mL/min (>60); Est Glom Filt Rate - Afr Amer 152 mL/min (>60); Estimated Creatinine Clearance 30.52 ml/min; Glucose 101 mg/dL (74-106); Potassium 3.4 mmol/L (3.5-5.1); Sodium Level 132 mmol/L (136-145)
[2021-02-11] MEDS: Potassium Chloride Oral Tablet 20 MEQ PO (08:02)
[2021-02-11] MEDS: Metoprolol Tartrate 50 MG Tablet PO (08:06)
--- NOTE | 2021-02-11 09:23 | CASEMGMT ---
Addendum entered by Emily Robertson 02/11/21 14:08: Krzysztof Vargas at [facility] in [facility] is not needed. Addendum entered by Emily Robertson 02/11/21 13:59: ALLIE placed a call to Shaina at [facility] to inquire about pre-cert. Shaina states she spoke with [facility] and pre-cert has been obtained and [facility] is able to accept pt. ALLIE informed Shaina that pt will be discharged today. Shaina states to fax discharge paperwork to [phone] and for RN to call [phone] and ask for RN Bobby for RN to RN. ALLIE then received a call from pt's daughter Luz. Luz states she was updated that [facility] has a bed. ALLIE informed Luz that it has been confirmed [facility] has a bed and pre-cert has been obtained, pt will discharge today to [facility]. Luz states she will be at [facility] in around 15 minutes to transport pt. ALLIE updated RN. ALLIE placed a call to Shaina Merritt states pt's family is able to transport pt. ALLIE informed Shaina that pt should be leaving soon from [facility]. ALLIE updated pt and pt's Chau on discharge today as insurance approval has been obtained. ALLIE faxed completed discharge paperwork to [facility] including transfer to extended care facility, signed medication list, any scripts, COVID screening tool. Original in SNF folder and copy on pt's chart. [facility] Pt's daughter to transport pt. Addendum entered by Emily Robertson 02/11/21 13:18: ALLIE updated pt and Chau that [facility] has confirmed they have a bed available, this worker is now just waiting for pre-cert again as it had to be resubmitted. Pt and Chau state understanding. Original Note: Social Work Note ALLIE placed a call to Shaina at [facility] ([phone]) and left message stating to please let this worker know when pre-cert is obtained. ALLIE placed a call to [facility] and spoke with Neelam who transferred this worker to [place]. Shaina states [facility] pt and they will have a bed for pt today, just waiting in approval from Sabina at [facility]. ALLIE asked Shaina to please call this worker directly when pre-cert is obtained, SW provided number. Plan: [facility] pending pre-cert Emily Robertson UNDERWRITING CLERK, DIRECTOR RETIREMENT
[2021-02-11] MEDS: Magnesium Chloride 64 MG Delay Rel.Tablet PO (09:57)
[2021-02-11] MEDS: amLODIPine 10 MG Tablet PO (09:57)
[2021-02-11] MEDS: Enoxaparin 40 MG/0.4 ML Syringe SC (09:57)
[2021-02-11] MEDS: Ascorbic Acid 500 MG Tablet 1000 MG PO (09:58)
[2021-02-11 11:45] LABS: Bedside Glucose 166 mg/dL (70-110)
[2021-02-11] MEDS: Insulin Lispro 100 UNIT/ML INSULN.PEN SC (12:08)
--- NOTE | 2021-02-11 13:23 | CON.PCM_ITS ---
Reason for Consult Date of Consultation: 02/11/21 Reason for Consultation: Left hip pain History of Present Illness: The patient is a 86 year old F known to me. Patient has had posterior left hip pain. She is also dealt with lateral hip pain in the past. Most recently we've been trying to rule out a sacral insufficiency fracture. CT scan was without significant abnormality. Recently she had an MRI in house. She remains in house due to left hip pain and insurance purposes to arrange for appropriate discharge destination. Precertification for discharge destination has been arranged today. She states her pain starts in her low back and sacral area and radiates down to the top of her ankle. Her is at the bedside. She report reports that she has more pain when she lays flat. As I tried to ask her more confirming questions she has a difficult time confirming that if she sits up the pain is relieved. She has had no change in bowel or bladder habits. No fevers chills or night sweats. We previously performed left hip x-rays in the office which show stable implants from a previous left total hip replacement. 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 Past Medical History Past Medical History (Chronic Problems): Chronic Problems (Last Updated 12/01/19 @ 10:54 by Coleen Keane) Arthritis of left sacroiliac joint (Chronic) Hypertension (Chronic) Chronic hyponatremia (Chronic) Medical History: Medical History (Last Updated 12/01/19 @ 10:54 by Coleen Keane) Bloody stool K92.1 Diabetes E11.9 Hemorrhoids K64.9 HTN (hypertension) I10 Allergies No Known Allergies Allergy (Verified 02/06/21 17:36) Home Medications: Ambulatory Orders Medication Instructions Recorded amlodipine 10 mg tablet 10 mg PO DAILY 12/01/19 ascorbic acid (vitamin C) 1,000 mg 1,000 mg PO DAILY 12/01/19 tablet biotin 10,000 mcg capsule 1 cap PO DAILY 12/01/19 cholecalciferol (vitamin D3) 125 1 tab PO DAILY 12/01/19 mcg (5,000 unit) disintegrating tablet cinnamon bark 500 mg capsule 500 mg PO DAILY 12/01/19 coenzyme Q10 100 mg capsule 100 mg PO DAILY 12/01/19 garlic extract 600 mg tablet 600 mg PO DAILY 12/01/19 marine (Zingiber officinalis) 550 550 mg PO DAILY 12/01/19 mg capsule lutein 40 mg capsule 40 mg PO DAILY 12/01/19 magnesium 250 mg tablet 250 mg PO DAILY 12/01/19 metformin 500 mg tablet,extended 500 mg PO TIDCM 12/01/19 release 24 hr metoprolol tartrate 50 mg tablet 100 mg PO QHS 12/01/19 niacin 500 mg tablet 1,000 mg PO DAILY 12/01/19 omega-3 acid ethyl esters 1 gram 2 cap PO BID 12/01/19 capsule red yeast rice 600 mg capsule 600 mg PO BID 12/01/19 turmeric 400 mg capsule 400 mg PO BID 12/01/19 Insulin Glargine,Hum.rec.anlog 23 unit SQ BREAKFAST 07/04/20 [Mick Ugalde] Metoprolol Tartrate 50 mg PO BREAKFAST 07/04/20 Zinc Gluconate [Zinc] 100 mg PO DAILY 07/04/20 Acetaminophen [Tylenol Tablet] 650 mg PO Q6H PRN PRN tab 02/09/21 Ensure Enlive 120 ml PO 4X/DAY liquid 02/09/21 Surgical History: Surgical History (Last Updated 12/01/19 @ 10:54 by Coleen Keane) History of hip replacement Z96.649 Surgical History: - - Left total hip, right partial hip Lives: Spouse/ Significant Other Smoking Status: Never smoker - *Family History Maternal History Items: Heart Disease Review of Systems Constitutional: Reports: Anorexia, Weakness. Denies: Chills, Fever, Night Sweats HEENT: Denies: Head Aches, Sinus Congestion, Sinus Drainage Cardiovascular: Denies: Chest Pain, Palpitations Respiratory: Denies: Cough, Shortness of breath at rest, Sputum production Gastrointestinal: Reports: Constipation Genitourinary: Denies: Dysuria Musculoskeletal: Reports: Joint swelling, Joint Tenderness Skin: Denies: Rash, Wounds Neurological: Denies: Numbness, Tingling, Focal weakness Psychiatric: Reports: Anxiety Hematologic/ Lymphatic: Denies: Petechiae, Purpura Patient Problems: Active and Suspected Problems (Last Updated 12/01/19 @ 10:54 by Coleen Keane) Acute left hip pain (Acute) Diabetes 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 (Acute) Hypokalemia (Acute) Objective: MRI of the pelvis was reviewed. Centrally normal examination. There iS no definitive evidence of a sacral insufficiency fracture. However there is increased inflammation over the posterior SI joint and posterior paraspinal musculature on the left. - Physical Exam Vitals/I&O's: Vital Signs Temp Pulse Resp BP Pulse Ox 98.2 F 92 18 149/69 H 100 02/11/21 08:48 02/11/21 08:48 02/11/21 08:50 02/11/21 08:48 02/11/21 08:48 Oxygen Delivery Method Room Air Weight: 103 lb 9.876 oz Body Mass Index (BMI) 18.9 Finger Stick Blood Glucose 222 Intake and Output for Last 24 Hours 02/09/21 02/10/21 02/11/21 23:59 23:59 23:59 Intake Total 1850 / 1850 400 / 600 400 / 400 Output Total 1200 / 1200 Balance 650 / 650 400 / 600 400 / 400 General: Alert, Oriented x3, Cooperative HEENT: Atraumatic Neck: No JVD Lungs: - - Nonlabored breathing Cardiovascular: - - Regular pulse rate Abdomen: Non-Distended Extremities: No clubbing, No cyanosis, No edema, - - Left lower extremity: 5 out of 5 dorsiflexion and plantar flexion. Mild straight leg raise. Exquisite tenderness over the posterior SI region and paraspinal musculature on the left. Skin: No rashes, No breakdown Microbiology Past 72 Hours 02/09/21 14:10 Mucosa - Nose SARS-CoV-2 Antigen (Rapid) - Final Laboratory Results 02/10/21 17:03: POC Glucose 63 L 02/10/21 18:07: POC Glucose 164 H 02/10/21 20:21: POC Glucose 120 H 02/11/21 06:34: POC Glucose 106 02/11/21 06:35: WBC 6.9, RBC 3.88 L, Hgb 11.2 L, Hct 32.9 L, MCV 84.8, MCH 28.9, MCHC 34.0, RDW Std Deviation 50.4 H, RDW Coeff of Viraj 16.4 H, Plt Count 264, MPV 8.2 02/11/21 06:35: Sodium 132 L, Potassium 3.4 L, Chloride 98, Carbon Dioxide 27.0, Anion Gap 7, BUN 17, Creatinine 0.50 L, Estim Creat Clear Calc 30.52, Est GFR (MDRD) Af Amer 152, Est GFR (MDRD) Non-Af 125, BUN/Creatinine Ratio 34.1 H, Glucose 101, Calcium 8.9 02/11/21 11:30: POC Glucose 166 H Current Medications Acetaminophen (Acetaminophen 325 Mg Tablet) 650 mg PO Q6H PRN PRN PRN Reason: Pain Score 1-10/Temp > 100.7 F Last Admin: 02/10/21 21:57 Dose: 650 mg Documented by: Amlodipine Besylate (Amlodipine 10 Mg Tablet) 10 mg PO DAILY [facility] Last Admin: 02/11/21 09:57 Dose: 10 mg Documented by: Ascorbic Acid (Ascorbic Acid 500 Mg Tablet) 1,000 mg PO DAILY [facility] Last Admin: 02/11/21 09:58 Dose: 1,000 mg Documented by: Dextrose (Dextrose 50%-Water 25 Gm/50 Ml Disp.Syrin) 0 gm IV X1 PRN; Protocol PRN Reason: Hypoglycemia Enoxaparin Sodium (Enoxaparin 40 Mg/0.4 Ml Syringe) 40 mg SC DAILY [facility] Last Admin: 02/11/21 09:57 Dose: 40 mg Documented by: Glucagon (Glucagon 1 Mg/Ml Syringe) 1 mg IM .X1 PRN PRN Reason: Hypoglycemia Hydralazine HCl (Hydralazine 20 Mg/Ml Vial) 10 mg IV Q4H PRN PRN PRN Reason: SBP>185 Last Admin: 02/08/21 19:31 Dose: 10 mg Documented by: Hydralazine HCl (Hydralazine 25 Mg Tablet) 25 mg PO TID [facility] Last Admin: 02/11/21 04:36 Dose: 25 mg Documented by: Insulin Glargine (Insulin Glargine 100 Units/Ml Pen) 23 units SC BREAKFAST [facility] Last Admin: 02/11/21 08:01 Dose: 23 u Documented by: Insulin Human Lispro (Insulin Lispro 100 Unit/Ml Insuln.Pen) 0 unit SC ACHS [facility]; Protocol Last Admin: 02/11/21 12:08 Dose: 2 u Documented by: Magnesium Chloride (Magnesium Chloride 64 Mg Delay Rel.Tablet) 64 mg PO DAILY [facility] Last Admin: 02/11/21 09:57 Dose: 64 mg Documented by: Metoprolol Tartrate (Metoprolol Tartrate 50 Mg Tablet) 50 mg PO BREAKFAST [facility] Last Admin: 02/11/21 08:06 Dose: 50 mg Documented by: Metoprolol Tartrate (Metoprolol Tartrate 100 Mg Tablet) 100 mg PO QHS [facility] Last Admin: 02/10/21 21:51 Dose: 100 mg Documented by: Morphine Sulfate (Morphine 2 Mg/Ml Syringe) 2 mg IV Q3H PRN PRN PRN Reason: Pain Score 6-10 Last Admin: 02/07/21 02:57 Dose: 2 mg Documented by: Nitroglycerin (Nitroglycerin (Inpatient Use) 0.4 Mg Tab.Subl) 0.4 mg SL Q5M PRN PRN Reason: CARDIAC/CHEST PAIN Nutritional Formula (Lactose Free) (Ensure Enlive 120 Ml Liquid) 120 ml PO 4X/DAY [facility] Last Admin: 02/11/21 09:56 Dose: Not Given Documented by: Oxycodone HCl (Oxycodone 5 Mg Tablet) 5 mg PO Q4H PRN PRN PRN Reason: Pain Score 4-5 Last Admin: 02/11/21 01:52 Dose: 5 mg Documented by: Potassium Chloride (Potassium Chloride Oral Tablet 20 [facility]) [facility] Admin: 02/11/21 08:02 Dose: 20 meq Documented by: Prochlorperazine Edisylate (Prochlorperazine 10 Mg/2 Ml Vial) 5 mg IV Q4H PRN PRN PRN Reason: Breakthrough nausea/vomiting Senna/Docusate Sodium (Senna/Docusate Sodium 1 Tablet) 2 tablet PO BID PRN PRN PRN Reason: Constipation Last Admin: 02/10/21 09:34 Dose: 2 tablet Documented by: Sodium Chloride (0.9% Saline Lock 10 Ml Syringe) 10 - 40 ml IV UD PRN PRN Reason: SALINE FLUSH Last Admin: 02/10/21 03:54 Dose: 10 ml Documented by: Assessment/Plan All Active Problems (Last Updated 12/01/19 @ 10:54 by Coleen Keane) Acute left hip pain (Acute) Diabetes 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 (Acute) Hypokalemia (Acute) Left posterior hip pain possible radiculopathy. Natural history of the disease process and treatment options were discussed the patient. I also discussed the MRI results with the patient, her and her daughter over the phone. At this time it appears to be ruled out a sacral insufficiency fracture. However I do feel there is left-sided inflammation in the sacral area especially posteriorly. This could be consistent with iliac arthritis. She also has radicular type pain down the left leg extending from her buttocks down into the top of her ankle. She denies any associated numbness and tingling. She still has good strength. Straight leg raise Is not definitively positive. I did discuss with the patient that the next treatment option is likely considering pain management and potential sacroiliac joint injection. This can be used as both diagnostic and therapeutic to help confirm the diagnosis and location of the pain. Also felt that it may be necessary to proceed with a lumbar MRI if SI joint injection was unsuccessful. Patient demonstrates an understanding. At this point patient is to be discharged to a swing bed or the hospital. We'll attempt to have the pain management doctor on location there evaluate the patient and potentially arrange SI joint injections while she is there. [facility] Office:
--- NOTE | 2021-02-11 13:47 | PN_ITS ---
Patient Problems: Active and Suspected Problems (Last Updated 12/01/19 @ 10:54 by Coleen Keane) Acute left hip pain (Acute) Diabetes 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 (Acute) Hypokalemia (Acute) Subjective: In on the phone with dietary. Vitals/I&O's: Vital Signs Temp Pulse Resp BP Pulse Ox 36.8 C 92 18 149/69 H 100 02/11/21 08:48 02/11/21 08:48 02/11/21 08:50 02/11/21 08:48 02/11/21 08:48 Oxygen Delivery Method Room Air Weight: 47 kg Body Mass Index (BMI) 18.9 Finger Stick Blood Glucose 222 Intake and Output for Last 24 Hours 02/09/21 02/10/21 02/11/21 23:59 23:59 23:59 Intake Total 1850 / 1850 400 / 600 400 / 400 Output Total 1200 / 1200 Balance 650 / 650 400 / 600 400 / 400 General: Alert, No apparent distress, - - Patient on the phone with dietary. HEENT: Atraumatic, Normocephalic Psych/Mental Status: Normal Affect, Appropriate Microbiology Past 72 Hours 02/09/21 14:10 Mucosa - Nose SARS-CoV-2 Antigen (Rapid) - Final Laboratory Results 02/10/21 17:03: POC Glucose 63 L 02/10/21 18:07: POC Glucose 164 H 02/10/21 20:21: POC Glucose 120 H 02/11/21 06:34: POC Glucose 106 02/11/21 06:35: WBC 6.9, RBC 3.88 L, Hgb 11.2 L, Hct 32.9 L, MCV 84.8, MCH 28.9, MCHC 34.0, RDW Std Deviation 50.4 H, RDW Coeff of Viraj 16.4 H, Plt Count 264, MPV 8.2 02/11/21 06:35: Sodium 132 L, Potassium 3.4 L, Chloride 98, Carbon Dioxide 27.0, Anion Gap 7, BUN 17, Creatinine 0.50 L, Estim Creat Clear Calc 30.52, Est GFR (MDRD) Af Amer 152, Est GFR (MDRD) Non-Af 125, BUN/Creatinine Ratio 34.1 H, Glucose 101, Calcium 8.9 02/11/21 11:30: POC Glucose 166 H Current Medications Acetaminophen (Acetaminophen 325 Mg Tablet) 650 mg PO Q6H PRN PRN PRN Reason: Pain Score 1-10/Temp > 100.7 F Last Admin: 02/10/21 21:57 Dose: 650 mg Documented by: Amlodipine Besylate (Amlodipine 10 Mg Tablet) 10 mg PO DAILY [facility] Last Admin: 02/11/21 09:57 Dose: 10 mg Documented by: Ascorbic Acid (Ascorbic Acid 500 Mg Tablet) 1,000 mg PO DAILY [facility] Last Admin: 02/11/21 09:58 Dose: 1,000 mg Documented by: Dextrose (Dextrose 50%-Water 25 Gm/50 Ml Disp.Syrin) 0 gm IV X1 PRN; Protocol PRN Reason: Hypoglycemia Enoxaparin Sodium (Enoxaparin 40 Mg/0.4 Ml Syringe) 40 mg SC DAILY [facility] Last Admin: 02/11/21 09:57 Dose: 40 mg Documented by: Glucagon (Glucagon 1 Mg/Ml Syringe) 1 mg IM .X1 PRN PRN Reason: Hypoglycemia Hydralazine HCl (Hydralazine 20 Mg/Ml Vial) 10 mg IV Q4H PRN PRN PRN Reason: SBP>185 Last Admin: 02/08/21 19:31 Dose: 10 mg Documented by: Hydralazine HCl (Hydralazine 25 Mg Tablet) 25 mg PO TID [facility] Last Admin: 02/11/21 04:36 Dose: 25 mg Documented by: Insulin Glargine (Insulin Glargine 100 Units/Ml Pen) 23 units SC BREAKFAST [facility] Last Admin: 02/11/21 08:01 Dose: 23 u Documented by: Insulin Human Lispro (Insulin Lispro 100 Unit/Ml Insuln.Pen) 0 unit SC ACHS [facility]; Protocol Last Admin: 02/11/21 12:08 Dose: 2 u Documented by: Magnesium Chloride (Magnesium Chloride 64 Mg Delay Rel.Tablet) 64 mg PO DAILY [facility] Last Admin: 02/11/21 09:57 Dose: 64 mg Documented by: Metoprolol Tartrate (Metoprolol Tartrate 50 Mg Tablet) 50 mg PO BREAKFAST [facility] Last Admin: 02/11/21 08:06 Dose: 50 mg Documented by: Metoprolol Tartrate (Metoprolol Tartrate 100 Mg Tablet) 100 mg PO QHS [facility] Last Admin: 02/10/21 21:51 Dose: 100 mg Documented by: Morphine Sulfate (Morphine 2 Mg/Ml Syringe) 2 mg IV Q3H PRN PRN PRN Reason: Pain Score 6-10 Last Admin: 02/07/21 02:57 Dose: 2 mg Documented by: Nitroglycerin (Nitroglycerin (Inpatient Use) 0.4 Mg Tab.Subl) 0.4 mg SL Q5M PRN PRN Reason: CARDIAC/CHEST PAIN Nutritional Formula (Lactose Free) (Ensure Enlive 120 Ml Liquid) 120 ml PO 4X/DAY [facility] Last Admin: 02/11/21 09:56 Dose: Not Given Documented by: Oxycodone HCl (Oxycodone 5 Mg Tablet) 5 mg PO Q4H PRN PRN PRN Reason: Pain Score 4-5 Last Admin: 02/11/21 01:52 Dose: 5 mg Documented by: Potassium Chloride (Potassium Chloride Oral Tablet 20 Meq) 20 meq PO DAILYCM [facility] Last Admin: 02/11/21 08:02 Dose: 20 meq Documented by: Prochlorperazine Edisylate (Prochlorperazine 10 Mg/2 Ml Vial) 5 mg IV Q4H PRN PRN PRN Reason: Breakthrough nausea/vomiting Senna/Docusate Sodium (Senna/Docusate Sodium 1 Tablet) 2 tablet PO BID PRN PRN PRN Reason: Constipation Last Admin: 02/10/21 09:34 Dose: 2 tablet Documented by: Sodium Chloride (0.9% Saline Lock 10 Ml Syringe) 10 - 40 ml IV UD PRN PRN Reason: SALINE FLUSH Last Admin: 02/10/21 03:54 Dose: 10 ml Documented by: Medical Necessity - Tobacco Use Smoking Status: Never smoker Assessment/Plan All Active Problems (Last Updated 12/01/19 @ 10:54 by Coleen Keane) Acute left hip pain (Acute) Diabetes 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 (Acute) Hypokalemia (Acute) 1. left hip pain work up unremarkable follow up with orthopaedics PRN 2. Hyponatremia Improved. Secondary to triamterene/HCTZ. Continue to hold this medication. 3. Debility eventually to SNF. 4. Disposition: to [facility]. OBSV E&M: 94136 Observation care discharge
== END 2021-02-11 14:40 | disposition skilled nursing facility (03) ==
LOC: ED 21:03 → MS3 21:09
PROVIDERS: Internal Medicine; Admitting Provider Internal Medicine; Emergency Provider Emergency Medicine; PCP Preventive Medicine Occupational Medicine
DX: M25.552 Pain in left hip (principal); E11.9 Type 2 diabetes mellitus without complications; E87.6 Hypokalemia; I10 Essential (primary) hypertension; M21.371 Foot drop, right foot; E87.1 Hypo-osmolality and hyponatremia; F03.90 Unspecified dementia, unspecified severity, without behavioral disturbance, psychotic disturbance, mood disturbance, and anxiety; E86.1 Hypovolemia; M53.3 Sacrococcygeal disorders, not elsewhere classified; Z96.643 Presence of artificial hip joint, bilateral; Z79.899 Other long term (current) drug therapy; Z79.4 Long term (current) use of insulin
CPT/HCPCS: 36415; 71045; 72195; 80048; 80053; 81001; 82436; 82570; 82962; 83735; 84100; 84133; 84300; 84484; 85025; 85027; 87426; 93005; 96361; 96372; 96374; 96375; 96376; 97110; 97162; 97166; 97530; 97535; 97802; 99218; 99251; 99284; J7030; A4216; G0378; G0463

== ENCOUNTER 2021-02-24 14:02 | Observation (INO) | payer MEDICARE, SELFPAY ==
[2021-02-07 10:54] VITALS: BMI 18.9
[2021-02-24] VITALS (10 sets, daily range): BP systolic 136–166; BP diastolic 64–93; PULSE 79–140; RESP 13–20; TEMP 36.6–37.2; O2SAT 94–99; BMI 19.8; BMI 20.5; BMI 20.6
--- NOTE | 2021-02-24 14:02 | EKG12_ITS ---
Test Reason : STROKE Blood Pressure : / mmHG Vent. Rate : 082 BPM Atrial Rate : 069 BPM P-R Int : 000 ms QRS Dur : 084 ms QT Int : 386 ms P-R-T Axes : 000 -38 040 degrees QTc Int : 450 ms Somatic/Motion artifact Sinus Rhythm with PSVC's Left axis deviation Moderate voltage criteria for LVH, may be normal variant Nonspecific ST abnormality Abnormal ECG Confirmed by RACHELLE OLIVAS, KENDAL ([id number]), news editor CHRISTIAN INIGUEZ ([id number]) on 02/26/2021 9:49:17 AM Referred By: FAITH Confirmed By:KENDAL BUSH MD
--- NOTE | 2021-02-24 14:02 | CT_ITS ---
STUDY: CT HEAD STROKE PROTOCOL W/O CONTRAST INJECTION REASON FOR EXAM: Female, 86 years old. Neuro deficit, acute, stroke suspected RADIATION DOSAGE (If Supplied By Facility): CTDIvol = ( 38.43 ) mGy, DLP = ( 712.69 ) mGycm TECHNIQUE: Transaxial CT imaging of the brain was performed without administration of intravenous contrast material. Individualized dose optimization techniques were used for this CT. COMPARISON: Comparison is made with prior study 07/04/2020. FINDINGS: Normal soft tissue structures. Normal calvarium. There is mild cerebral atrophy with widening of the extra-axial spaces and ventricular dilatation. There are areas of decreased attenuation within the white matter tracts of the supratentorial brain, consistent with microvascular disease changes. 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 Normal brainstem. Normal cerebellum. There is no intracranial hemorrhage. There are no findings of an acute ischemic infarction. Atherosclerotic calcification of the vertebral arteries and cavernous portions of the internal carotid arteries bilaterally. Normal visualized paranasal sinuses. CT/STROKE Brain/Head without Cont IMPRESSION: Chronic involutional changes of the brain. N.B. : The above information has been verbally conveyed by Desean Harris MD to Dr Louis MD, on 02/24/2021 14:16:41 (ET). Electronically Signed: Desean Harris MD at 14:17 EDT , Service support ,
--- NOTE | 2021-02-24 14:21 | ED.RN ---
PT CONTACTED VIA PHONE CALL TO DETERMINE LAST KNOWN WELL. PER PT HAS HAD INTERMITTENT CONFUSION. PHONE CALL DROPPED.
--- NOTE | 2021-02-24 14:24 | ED.VIS.GEN ---
History of Present Illness Chief Complaint: Confusion Informant: Senior Principal Software Engineer Limited by: - - Not able to cooperate with regards to history Onset: Hours - 1100 Context: Sudden Onset Timing: Continuous Quality: Confusion Location: Was at home with daughter Current Severity: Moderate Maximum Severity: Moderate Worsened by: Unknown Relieved by: Apparently nothing Associated Symptoms: Unknown Narrative: Patient is an 86-year-old woman who was recently discharged from nursing facility. She was placed on Ativan and then Zoloft. Daughter states she has not received Zoloft since yesterday. She apparently had an epidural injection last week. Patient was made a prehospital stroke team. She was taken to the scanner and evaluated when she returned. Patient not able to cooperate with regards to history. She either replies it is too late or that will not change . Prior similar symptoms: No Recent Illness/Hospitalization: Yes - Past Medical History (1) Diabetes 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 Status: Acute (2) Chronic hyponatremia Status: Chronic (3) Hypertension Status: Chronic Past Medical History - Allergies and Home Meds Allergies/Adverse Reactions: Allergies No Known Allergies Allergy (Verified 02/24/21 14:12) Primary Care Physician: Antonino Rosario DO [Primary Care Provider] - Prior records reviewed: Yes Surgical History: - - Left total hip, right partial hip Lives: Alone, With Family Smoking Status: Unknown if ever smoked Alcohol: None Drugs: None - Family History Maternal Family History: Reports: Heart Disease Review of Systems ROS: Unable to Obtain Physical Exam Vital Signs/Narrative: Vital Signs Temp Pulse Resp BP Pulse Ox 02/24/21 14:23 84 19 H 166/74 H 94 02/24/21 14:12 98.4 F 83 18 156/65 H 99 02/24/21 14:11 94 Inital Vital Signs reviewed: Yes General: Well nourished, Well developed, No Acute Distress Head: Normocephalic, Atraumatic Eyes: Perrl, EOMI. Negative for: Pale conjunctiva, Scleral icterus ENT: Moist mucous membranes, No rhinorrhea Neck: Supple, Nontender, No lymphadenopathy, No JVD Cardiovascular: Regular rate, Regular rhythm, No murmurs, Normal S1, Normal S2 Respiratory: No distress, CTA bilaterally, Chest nontender Abdomen: Soft, Nontender, Nondistended, Normal bowel sounds Back: Nontender, Normal Inspection Extremities: Nontender, No edema Skin: Normal color, No rash, No Trauma. Negative for: Cyanosis, Diaphoresis, Jaundice Neurological: Alert, Oriented x3, Cranial nerves II-XII grossly intact, Normal Strength, Normal Sensation. Negative for: Normal Gait Psychological: - - To determine. Negative for: Normal affect, Normal Mood Diagnostic/Tx/Re-eval Chest X-Ray - ED: 1 View, Read by ED Physician, Unchanged, Normal, Heart, Mediastinum, Bony Structures, No Acute Disease, Chronic Changes Impressions Brain CT 02/24/21 14:02 IMPRESSION: Chronic involutional changes of the brain. N.B. : The above information has been verbally conveyed by Desean Harris MD to Dr Louis MD, on 02/24/2021 14:16:41 (ET). Electronically Signed: Desean Harris MD at 14:17 EDT , Service support , ADDENDUM: 02/24/21 1424 IMPRESSION: Chronic involutional changes of the brain. N.B. : The above information has been verbally conveyed by Desean Harris MD to Dr Louis MD, on 02/24/2021 14:16:41 (ET). Electronically Signed: Desean Harris MD at 14:17 EDT , Service support , Chest X-Ray 02/24/21 14:50 IMPRESSION: Hyperinflation. The lungs are clear. Electronically Signed: Desean Harris MD at 15:07 EDT , Service support , 02/24/21 14:02 STROKE Brain/Head without Cont [CT] Stat 02/24/21 14:50 Chest 1 View [RAD] Stat Laboratory Results 02/24/21 02/24/21 02/24/21 14:10 14:10 14:10 WBC 9.1 RBC 4.71 Hgb 13.8 Hct 41.0 MCV 87.0 MCH 29.3 MCHC 33.7 RDW Std Deviation 51.8 H RDW Coeff of Viraj 16.2 H Plt Count 413 MPV 9.4 Immature Gran % (Auto) 0.400 Neut % (Auto) 75.6 H Lymph % (Auto) 14.2 L [place] % (Auto) 5.2 Eos % (Auto) 4.3 Baso % (Auto) 0.3 Absolute Neuts (auto) 6.9 Absolute Lymphs (auto) 1.29 Nucleated RBC % 0 PT 12.9 INR 1.0 APTT 27.3 Sodium 131 L Potassium 2.9 L Chloride 93 L Carbon Dioxide 30.0 Anion Gap 8 BUN 35 H Creatinine 0.86 Estim Creat Clear Calc 37.83 Est GFR (MDRD) Af Amer 81 Est GFR (MDRD) Non-Af 67 BUN/Creatinine Ratio 40.7 H Glucose 180 H Calcium 9.8 Troponin I 0.041 Urine Color Urine Clarity Urine pH Ur Specific [place] Urine Protein Urine Glucose (UA) Urine Ketones Urine Occult Blood Urine Nitrite Urine Bilirubin Urine Urobilinogen Ur Leukocyte Esterase Urine RBC Urine WBC Ur Squamous Epith Cells Urine Bacteria Urine Mucus 02/24/21 14:40 WBC RBC Hgb Hct MCV MCH MCHC RDW Std Deviation RDW Coeff of Viraj Plt Count MPV Immature Gran % (Auto) Neut % (Auto) Lymph % (Auto) [place] % (Auto) Eos % (Auto) Baso % (Auto) Absolute Neuts (auto) Absolute Lymphs (auto) Nucleated RBC % PT INR APTT Sodium Potassium Chloride Carbon Dioxide Anion Gap BUN Creatinine Estim Creat Clear Calc Est GFR (MDRD) Af Amer Est GFR (MDRD) Non-Af BUN/Creatinine Ratio Glucose Calcium Troponin I Urine Color Yellow Urine Clarity Sl. Cloudy Urine pH 5.0 Ur Specific [place] 1.020 Urine Protein 15 H Urine Glucose (UA) 50 H Urine Ketones 15 H Urine Occult Blood 25 H Urine Nitrite Negative Urine Bilirubin Negative Urine Urobilinogen Normal Ur Leukocyte Esterase 25 H Urine RBC 0-5 SEEN Urine WBC 0-5 SEEN Ur Squamous Epith Cells 0-5 SEEN Urine Bacteria 0 SEEN Urine Mucus 0 SEEN - EKG Initial EKG Interpretation: Atrial Fibrillation - Patient EKG reveals atrial fibrillation with ventricular rate 82. QRS duration 84. QT duration 386 ms. [place] to the left. There is significant motion artifact and difficult to interpret anything else. There may be evidence of a left anterior fascicular block. There also may be LVH. - Medical Decision Making I received call by radiologist that there is no acute process. Differential diagnosis includes metabolic versus infectious etiology. Since there is a history of atrial fibrillation and uncertain whether she is or is not on a blood thinner need to rule out intracranial bleed. Appropriate work-up was initiated. Stroke neurologist from [facility] did evaluate patient. He agrees this is most likely a metabolic or infectious encephalopathy. This may be drug-induced. Graph daughter who is the POA along with was made aware of findings. Per discussion with neurologist at [facility] if metabolic/infectious work-up was negative recommended MRI. Patient does have a living will. She is no CPR and no intubation. DNR comfort care form was filled out. Time spent with daughter regarding findings, CODE STATUS, disposition 14 minutes. Daughter states she would like to talk to her father regarding disposition if work-up is negative i.e. negative MRI. ED Disposition - Plan for ED Patient: Disposition: Acute Care [facility] Diagnosis: Acute encephalopathy Referrals: Antonino Rosario DO [Primary Care Provider] -
--- NOTE | 2021-02-24 14:26 | CM.ED ---
SOCIAL WORK Responded to Stroke Alert. Patient's daughter at bedside with nursing and physician. Nancy Ray in room. This worker to remain available for needs/support. Sailaja Burk, PORTAL ARCHITECT, SENIOR GAME DEVELOPER
[2021-02-24 14:27] LABS: Absolute Lymphocyte Count 1.29 X10^3/uL (0.83-4.51); Absolute Neutrophil Count 6.9 X10^3/uL (2.0-7.7); Basophil# 0.03 X10^3/uL; Basophil% 0.3 % (0-1); Eosinophil# 0.39 X10^3/uL; Eosinophils% 4.3 % (0-5); Hemoglobin 13.8 g/dL (12.0-15.0); Lymphocyte # 1.29 X10^3/ul (4.0); Lymphocyte % 14.2 % (19-41); Mean Corp Hgb Conc 33.7 g/dL (32-36); Mean Corpuscular Hgb 29.3 pg (27.0-32.0); Mean Platelet Vol. 9.4 fl (6.2-12.0); Monocyte# 0.47 X10^3/uL; Monocyte% 5.2 % (0-10); NRBC Flagged by Analyzer 0 % (0-5); Neutrophil # 6.89 X10^3/uL (2.7-7.7); Neutrophil % 75.6 % (47-70); Platelet Count 413 K/mm3 (150-450); RBC Distribution Width CV 16.2 % (11.6-14.6); RBC Distribution Width SD 51.8 fl (35.1-43.9); Red Blood Count 4.71 M/mm3 (4.2-5.4); White Blood Count 9.1 K/mm3 (4.4-11.0)
[2021-02-24 14:39] LABS: Prothrombin Time (Protime)PT. 12.9 SECONDS (11.7-14.9)
[2021-02-24 14:40] LABS: Partial Thromboplast Time 27.3 Seconds (24.1-36.2)
[2021-02-24 14:45] LABS: Anion Gap 8 (5-15); BUN 35 mg/dL (7-18); BUN/Creat Ratio 40.7 RATIO (10-20); Calcium,Total 9.8 mg/dL (8.5-10.1); Chloride 93 mmol/L (98-107); Creatinine, Serum 0.86 mg/dL (0.55-1.02); EST Glomerular Filtration Rate 67 mL/min (>60); Est Glom Filt Rate - Afr Amer 81 mL/min (>60); Estimated Creatinine Clearance 37.83 ml/min; Glucose 180 mg/dL (74-106); Potassium 2.9 mmol/L (3.5-5.1); Sodium Level 131 mmol/L (136-145)
[2021-02-24 14:47] LABS: Bacteria 0 SEEN /hpf (None Seen); Mucous, Urine 0 SEEN /hpf (<or=2+)
--- NOTE | 2021-02-24 14:48 | CHAPLAIN ---
Type of Pastoral Visit ___ Initial Visit ___ Follow-up Visit ___ On-call Visit ___ General Patient Visit ___ Spiritual Assessment ___ Family Conference ___ Bereavement _x__ Rapid Response ___ Code Blue ___ Other (describe below) Pastoral Care Referral From ___ Patient ___ Family ___ Nurse ___ Physician ___ Property Claim Rep ___ Life Insurance Actuary _x__ Other (describe below) Sacrament/Intervention ___ Active listening ___ Anointing ___ Sabianist ___ Bereavement ___ Communion ___ Angela exploration ___ ___ Life review _x__ Prayer ___ Reconciliation ___ Sacrament of Sick _x_ Supportive presence ___ Wedding ___ Other (describe below) Pastoral Comments responded to stroke alert in ED; discovered this patient that came in by ambulance who has been seen previously by this racing manager; pt has remembered this racing manager previously but at this encounter she did not seem to know; patient was being evaluated bymedical team but this racing manager stayed at bedside until daughter came;
[2021-02-24 14:49] LABS: Color, Urine Yellow (Yellow); Glucose, Dipstick 50 mg/dl (Normal); Ketone-Dipstick 15 mg/dl (Negative); Leukocyte Esterase-Dipstick 25 /ul (Negative); Nitrite-Dipstick Negative (Negative); Occult Blood-Urine 25 /ul (Negative); Protein-Dipstick 15 mg/dl (Negative); Urine Bilirubin Dipstick Negative (Negative); Urine Clarity Sl. Cloudy (Clear); Urine Urobilinogen Normal (Normal)
--- NOTE | 2021-02-24 14:50 | RAD_ITS ---
STUDY: X-RAY CHEST REASON FOR EXAM: Female, 86 years old. Neuro deficit, acute, stroke suspected TECHNIQUE: Single AP portable view of the chest. COMPARISON: Comparison is made with prior study of 02/06/2021. FINDINGS: EKG electrodes are seen. Hyperinflation. The lungs are clear. There is no demonstrated pleural abnormality. Normal size heart. Normal mediastinum and maciej. Normal visualized pulmonary arteries. There is atherosclerotic calcification of the aortic arch with tortuosity. Normal visualized thoracic spine. Normal visualized ribs, clavicles, and shoulders. There is no demonstrated abnormality of the visualized soft tissue structures of the upper abdomen. RAD/Chest 1 View IMPRESSION: Hyperinflation. The lungs are clear. Electronically Signed: Desean Harris MD at 15:07 EDT , Service support ,
[2021-02-24 14:55] LABS: Red Blood Cells-Urine 0-5 SEEN /hpf (0-5); Squamous Epithelial Cells - UA 0-5 SEEN /hpf (5-10); White Blood Cells 0-5 SEEN /hpf (0-5)
--- NOTE | 2021-02-24 15:19 | NURSING ---
DR ALONSO FOR DR CUEVAS
--- NOTE | 2021-02-24 15:36 | ED.RN ---
UNABLE TO COMPLETE SWALLOW EVAL. PT REFUSING TO ATTEMPT SWALLOW EVALUATION.
--- NOTE | 2021-02-24 16:01 | PCM.HP.STD ---
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 The patient is a 86 year old F who presents to the emergency room due to confusion. Patient repeating herself over and over during exam and unable to provide HPI. Patient answers that will not help to multiple questions. Daughter at bedside provides HPI. Patient was recently discharged to SNF for rehab 02/09/2021 following management for left hip pain related to radiculopathy. Daughter states patient was discharged 2 days ago and seemed to be doing well at home. A home health care provider was hired to help patient and patient's in the home. This afternoon, patient was noted to be repeating herself over and over and had increased confusion. Daughter denies any known slurred speech, unilateral weakness or focal deficits. Patient has a past medical history of hypertension, type 2 diabetes mellitus, mild dementia, paroxysmal atrial fibrillation, severe protein calorie malnutrition. Daughter states patient was started on Zoloft 5 days ago and is concerned this may be a side effect related to Zoloft. Past Medical History Past Medical History (Chronic Problems): Chronic Problems (Last Updated 12/01/19 @ 10:54 by Coleen Keane) Arthritis of left sacroiliac joint (Chronic) Hypertension (Chronic) Diabetes 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 (Chronic) Chronic hyponatremia (Chronic) Medical History: Medical History (Last Updated 12/01/19 @ 10:54 by Coleen Keane) Bloody stool K92.1 Diabetes E11.9 Hemorrhoids K64.9 HTN (hypertension) I10 Allergies No Known Allergies Allergy (Verified 02/24/21 14:12) Home Medications: Ambulatory Orders Medication Instructions Recorded amlodipine 10 mg tablet 10 mg PO DAILY 12/01/19 ascorbic acid (vitamin C) 1,000 mg 1,000 mg PO DAILY 12/01/19 tablet biotin 10,000 mcg capsule 1 cap PO DAILY 12/01/19 cholecalciferol (vitamin D3) 125 1 tab PO DAILY 12/01/19 mcg (5,000 unit) disintegrating tablet cinnamon bark 500 mg capsule 500 mg PO DAILY 12/01/19 coenzyme Q10 100 mg capsule 100 mg PO DAILY 12/01/19 garlic extract 600 mg tablet 600 mg PO DAILY 12/01/19 marine (Zingiber officinalis) 550 550 mg PO DAILY 12/01/19 mg capsule lutein 40 mg capsule 40 mg PO DAILY 12/01/19 magnesium 250 mg tablet 250 mg PO DAILY 12/01/19 metformin 500 mg tablet,extended 500 mg PO TIDCM 12/01/19 release 24 hr metoprolol tartrate 50 mg tablet 100 mg PO QHS 12/01/19 niacin 500 mg tablet 1,000 mg PO DAILY 12/01/19 omega-3 acid ethyl esters 1 gram 2 cap PO BID 12/01/19 capsule red yeast rice 600 mg capsule 600 mg PO BID 12/01/19 turmeric 400 mg capsule 400 mg PO BID 12/01/19 Insulin Glargine,Hum.rec.anlog 23 unit SQ BREAKFAST 07/04/20 [Toumaricruz Solostar] Metoprolol Tartrate 50 mg PO BREAKFAST 07/04/20 Zinc Gluconate [Zinc] 100 mg PO DAILY 07/04/20 Acetaminophen [Tylenol Tablet] 650 mg PO Q6H PRN PRN tab 02/09/21 Ensure Enlive 120 ml PO 4X/DAY liquid 02/09/21 Surgical History: Surgical History (Last Updated 12/01/19 @ 10:54 by Coleen Keane) History of hip replacement Z96.649 Surgical History: - - Left total hip, right partial hip Psychiatric History: No pertinent psych hx [employer] OP History: No pertinent [employer] OP history Lives: Spouse/ Significant Other Smoking Status: Never smoker Alcohol: None Drugs: None - *Family History Maternal History Items: Heart Disease Paternal History Items: - - Denies known paternal medical history including cardiac history. Review of Systems Unable to obtain accurate/complete ROS d/t: Unable to obtain ROS due to confusion. VTE Information - Inpt Only VTE Present on Admission: No VTE Mechan Device Prophylaxis: None VTE Pharm Prophylaxis ordered?: Yes Patient Problems: Active and Suspected Problems (Last Updated 12/01/19 @ 10:54 by Coleen Keane) Hypokalemia (Acute) Acute encephalopathy (Acute) - Physical Exam Vitals/I&O's: Vital Signs Temp Pulse Resp BP Pulse Ox 97.8 F 88 13 136/64 H 97 02/24/21 15:35 02/24/21 15:35 02/24/21 15:35 02/24/21 15:35 02/24/21 15:35 Oxygen Delivery Method Room Air Weight: 111 lb 15.917 oz Body Mass Index (BMI) 20.5 Finger Stick Blood Glucose 212 General: Alert, No apparent distress, - - Confused, repeating herself frequently HEENT: Atraumatic, PERRLA, EOMI, Normocephalic Oral: Dry Mucosa Neck: Supple, No JVD, Negative Carotid Bruits Lungs: Clear to auscultation, Diminished Cardiovascular: Regular rate, No murmurs Abdomen: Bowel Sounds Present, Soft, Non Tender, Non-Distended Extremities: No clubbing, No cyanosis, No edema, Capillary Refill Less than 3 Seconds Skin: No rashes, No breakdown Musculoskeletal: No Tenderness to Palpation of Joints or Extremities, - - Chronic right foot drop Neurological: Cranial nerves II-XII grossly intact, Neuro grossly intact Psych/Mental Status: Anxious Laboratory Results 02/24/21 14:10: WBC 9.1, RBC 4.71, Hgb 13.8, Hct 41.0, MCV 87.0, MCH 29.3, MCHC 33.7, RDW Std Deviation 51.8 H, RDW Coeff of Viraj 16.2 H, Plt Count 413, MPV 9.4, Immature Gran % (Auto) 0.400, Neut % (Auto) 75.6 H, Lymph % (Auto) 14.2 L, Leon % (Auto) 5.2, Eos % (Auto) 4.3, Baso % (Auto) 0.3, Absolute Neuts (auto) 6.9, Absolute Lymphs (auto) 1.29, Nucleated RBC % 0 02/24/21 14:10: PT 12.9, INR 1.0, APTT 27.3 02/24/21 14:10: Sodium 131 L, Potassium 2.9 L, Chloride 93 L, Carbon Dioxide 30.0, Anion Gap 8, BUN 35 H, Creatinine 0.86, Estim Creat Clear Calc 37.83, Est GFR (MDRD) Af Amer 81, Est GFR (MDRD) Non-Af 67, BUN/Creatinine Ratio 40.7 H, Glucose 180 H, Calcium 9.8, Troponin I 0.041 02/24/21 14:40: Urine Color Yellow, Urine Clarity Sl. Cloudy, Urine pH 5.0, Ur Specific [place] 1.020, Urine Protein 15 H, Urine Glucose (UA) 50 H, Urine Ketones 15 H, Urine Occult Blood 25 H, Urine Nitrite Negative, Urine Bilirubin Negative, Urine Urobilinogen Normal, Ur Leukocyte Esterase 25 H, Urine RBC 0-5 SEEN, Urine WBC 0-5 SEEN, Ur Squamous Epith Cells 0-5 SEEN, Urine Bacteria 0 SEEN, Urine Mucus 0 SEEN Current Medications Labetalol HCl (Labetalol (Prefilled) 20 Mg/4 Ml) 20 mg IV X1 PRN PRN Reason: Blood Pressure Assessment/Plan All Active Problems (Last Updated 12/01/19 @ 10:54 by Coleen Keane) Hypokalemia (Acute) Acute encephalopathy (Acute) 1. Acute encephalopathy-rule out CVA. Neurology consulted from ER, recommends MRI of brain, MRA of head and neck. Patient was started on Ativan and Zoloft during recent SNF admission. She has not had the Zoloft in 24 hours. Daughter does not think she has had Ativan in the past few days either. UA and chest x-ray unremarkable. PT/OT/ST. Aspirin, statin. Obtain echocardiogram. 2. Hypokalemia-replaced per protocol. Trend BMP. 3. Paroxysmal atrial fibrillation-not on anticoagulation. Continue metoprolol. EKG with atrial fibrillation on admission, rate controlled. 4. Hypertension-permissive secondary to #1. We will continue metoprolol for rate control. Hold amlodipine. 5. Mild dementia-not on regimen. 6. Type 2 diabetes [id number] with sliding scale insulin. Continue home insulin regimen. Hold metformin.5. 7. Severe protein calorie malnutrition-due to severe muscle wasting/fat loss, recent weight loss and inadequate oral intake. Dietitian consult. 8. Recent left hip pain radiculopathy-epidural injection last week by Ortho. PT/OT. DVT prophylaxis-Lovenox subcu CODE STATUS: Discussed in length with patient and daughter who is healthcare power of assistant district attorney. Daughter confirms patient is DNR CCA no intubation. This patient was seen by MURRAY Bernardo under the supervision of Dr. Palumbo. <Kristopher Palumbo E - Last Filed: 02/24/21 18:10> History of Present Illness The patient is a 86 year old F [] Past Medical History Medical History: Medical History (Last Updated 12/01/19 @ 10:54 by Coleen Keane) Bloody stool K92.1 Diabetes E11.9 Hemorrhoids K64.9 HTN (hypertension) I10 Allergies No Known Allergies Allergy (Verified 02/24/21 14:12) Surgical History: Surgical History (Last Updated 12/01/19 @ 10:54 by Coleen Keane) History of hip replacement Z96.649 - Physical Exam Vitals/I&O's: Vital Signs Temp Pulse Resp BP Pulse Ox 98.5 F 89 16 144/64 H 97 02/24/21 16:55 02/24/21 16:55 02/24/21 16:55 02/24/21 16:55 02/24/21 16:55 Oxygen Delivery Method Room Air Weight: 111 lb 15.917 oz Body Mass Index (BMI) 20.5 Finger Stick Blood Glucose 212 Laboratory Results 02/24/21 14:10: WBC 9.1, RBC 4.71, Hgb 13.8, Hct 41.0, MCV 87.0, MCH 29.3, MCHC 33.7, RDW Std Deviation 51.8 H, RDW Coeff of Viraj 16.2 H, Plt Count 413, MPV 9.4, Immature Gran % (Auto) 0.400, Neut % (Auto) 75.6 H, Lymph % (Auto) 14.2 L, Leon % (Auto) 5.2, Eos % (Auto) 4.3, Baso % (Auto) 0.3, Absolute Neuts (auto) 6.9, Absolute Lymphs (auto) 1.29, Nucleated RBC % 0 02/24/21 14:10: PT 12.9, INR 1.0, APTT 27.3 02/24/21 14:10: Sodium 131 L, Potassium 2.9 L, Chloride 93 L, Carbon Dioxide 30.0, Anion Gap 8, BUN 35 H, Creatinine 0.86, Estim Creat Clear Calc 37.83, Est GFR (MDRD) Af Amer 81, Est GFR (MDRD) Non-Af 67, BUN/Creatinine Ratio 40.7 H, Glucose 180 H, Calcium 9.8, Troponin I 0.041 02/24/21 14:10: Magnesium 2.0, TSH 1.05 02/24/21 14:40: Urine Color Yellow, Urine Clarity Sl. Cloudy, Urine pH 5.0, Ur Specific [place] 1.020, Urine Protein 15 H, Urine Glucose (UA) 50 H, Urine Ketones 15 H, Urine Occult Blood 25 H, Urine Nitrite Negative, Urine Bilirubin Negative, Urine Urobilinogen Normal, Ur Leukocyte Esterase 25 H, Urine RBC 0-5 SEEN, Urine WBC 0-5 SEEN, Ur Squamous Epith Cells 0-5 SEEN, Urine Bacteria 0 SEEN, Urine Mucus 0 SEEN 02/24/21 17:21: Troponin I Pending Current Medications Acetaminophen (Acetaminophen 325 Mg Tablet) 650 mg PO Q6H PRN PRN PRN Reason: Pain Score 1-10/Temp > 100.7 F Aspirin (Aspirin 81 Mg Tab.Chew) 81 mg PO DAILY@0800 [facility] Atorvastatin Calcium (Atorvastatin Calcium 80 Mg Tablet) 80 mg PO QHS [facility] Enoxaparin Sodium (Enoxaparin 40 Mg/0.4 Ml Syringe) 40 mg SC DAILY [facility] Potassium Chloride () 10 meq in 100 mls @ 100 mls/hr IV BOLUS Q1H [facility] Stop: 02/24/21 20:59 Insulin Glargine (Insulin Glargine 100 Units/Ml Pen) 23 units SC BREAKFAST [facility] Insulin Human Lispro (Insulin Lispro 100 Unit/Ml Insuln.Pen) 0 unit SC ACHS [facility]; Protocol Metoprolol Tartrate (Metoprolol Tartrate 100 Mg Tablet) 100 mg PO QHS [facility] Metoprolol Tartrate (Metoprolol Tartrate 50 Mg Tablet) 50 mg PO BREAKFAST [facility] Ondansetron HCl (Ondansetron 4 Mg/2 Ml Vial) 4 mg IV Q8H PRN PRN PRN Reason: NAUSEA/VOMITING Sodium Chloride (0.9% Saline Lock 10 Ml Syringe) 10 - 40 ml IV UD PRN PRN Reason: SALINE FLUSH Assessment/Plan Hospitalist note: I am seeing this patient in conjunction with Azul Friedman. I independently seen and examined the patient. History and physical, laboratory data and imaging studies reviewed and I concur with above admission and treatment plan. Patient presented to the emergency room because of confusion. During my encounter, patient was repeating herself and speaking incoherently. She mentioned that she has right foot drop. She was not able to provide detailed history. Reportedly, patient was discharged from SNF recently following admission for left hip pain and radiculopathy. She was discharged home 2 days ago. This afternoon, patient became more confused and she has been repeating herself. No reported slurred speech, focal weakness or facial droop. In the emergency department, her vital signs were stable. Her routine blood work was remarkable for sodium of 131 and potassium of 3.9. Troponin was negative. Urinalysis revealed cloudy urine, negative for nitrite, 0-5 WBCs and no bacteria seen. CT scan brain done and showed no acute findings. Patient was evaluated by SOC teleneurology in the ED, recommended metabolic encephalopathy work-up and also to consider MRI for further work-up. - Physical Exam General: Alert, confused, disoriented, speaking incoherently. No apparent distress. HEENT: Atraumatic, PERRLA, EOMI. Neck: Supple, No JVD, Negative Carotid Bruits, Trachea Midline, Thyroid Normal. Lungs: Clear to auscultation, Normal air movement, No rhonchi, No wheeze, No rales. Cardiovascular: Regular rate, Regular Rhythm, Normal S1, Normal S2, PMI Normal. Abdomen: Bowel Sounds Present, Soft, Non Tender, Non-Distended, No Hepato-splenomegaly. Extremities: No clubbing, No cyanosis, No edema Skin: No rashes, No breakdown Neurological: Cranial nerves are intact, she does have chronic right foot drop. Neuro grossly intact Vital Signs are stable. Assessment and plan: #1 acute encephalopathy: Unclear etiology, could be metabolic versus neurologic. CT scan brain showed no acute findings. SOC teleneurology consulted, recommendations reviewed. Apparently, patient was started recently on Ativan and Zoloft during her recent SNF admission. Chest x-ray and urinalysis were unremarkable. Plan: Admit to PCU, cardiac monitoring, NIH stroke scale, MRI brain, MRA of the neck, 2D echocardiogram, start aspirin and statins. #2 hypokalemia: Replace potassium with potassium chloride, repeat BMP tomorrow morning. #3 paroxysmal atrial fibrillation: Not sure if this is acute or chronic. She is not on anticoagulation. Rate is controlled. Continue metoprolol for rate control, 2D echocardiogram. #4 other chronic medical problems: Stable, continue current medications as above. This note was generated with [employer] dictation software. It may contain incorrect words, spelling, and punctuation that were not noted in checking the note before signing. OBSV E&M: [id number] Initial observation care L3
--- NOTE | 2021-02-24 16:34 | MRI_ITS ---
STUDY: MRA OF THE HEAD WITHOUT CONTRAST REASON FOR EXAM: Female, 86 years old. Confusion, AMS TECHNIQUE: 3-D [id number] (TOF) imaging was performed with MIPs. The study was performed unenhanced. COMPARISON: Head CT dated February 24, 2021. MRI of the brain dated February 24, 2021. FINDINGS: Normal bilateral petrous carotid arteries. There is atheromatous plaque formation of the right cavernous carotid artery, with a mild stenosis (less than 50%). There is atheromatous plaque formation of the left cavernous carotid artery, with a mild stenosis (less than 50%). Normal right A1 segments of the anterior cerebral artery. Normal left A1 segments of the anterior cerebral artery. Normal intact anterior communicating artery (ACOM). Normal bilateral A2 segments of the anterior cerebral arteries. Normal right M1 and M2 segments of the middle cerebral arteries, with a normal M1 bifurcation. Normal left M1 and M2 segments of the middle cerebral arteries, with a normal M1 bifurcation. There is non-visualization of the right posterior communicating artery (PCOM). There is non-visualization of the left posterior communicating artery (PCOM). Normal bilateral vertebral arteries. Normal basilar artery with a normal basilar bifurcation. The visualized bilateral superior cerebellar (SCA) arteries are normal. Normal bilateral P1, P2 and visualized P3 segments of the posterior cerebral arteries. There is no demonstrated aneurysm of the rincon of Val[place]. There is no major vessel occlusion or hemodynamically significant stenosis. MRI/MRA Head ONLY without Contrast IMPRESSION: 1. There is no demonstrated aneurysm of the rincon of [place]. There is no major vessel occlusion or hemodynamically significant stenosis. Electronically Signed: Wesley Rivas MD at 20:53 EDT , Service support ,
--- NOTE | 2021-02-24 16:34 | MRI_ITS ---
STUDY: MRI BRAIN WITHOUT CONTRAST REASON FOR EXAM: Female, 86 years old. Confusion TECHNIQUE: Standardized multiplanar fat and water weighted pulse sequences were obtained. COMPARISON: Head CT dated February 24 FINDINGS: There is moderate cerebral atrophy with widening of the extra-axial spaces and ventricular dilatation. There are a limited number of small white matter hyperintensities, distributed throughout the deep white matter tracts of the cerebral hemispheres, consistent with mild chronic white matter ischemic changes. There is no evidence for recent intracranial ischemia or other cause of cytotoxic edema on diffusion weighted imaging (DWI). Normal T2* images of the brain without demonstrated susceptibility artifact. There is no demonstrated hemosiderin stain. Small old lacunar infarcts are present in the right periventricular white matter and left thalamic lobe. Normal bilateral basal ganglia. There is no extra-axial fluid accumulation. Normal flow voids within the major intracranial circulation suggesting patency by spin echo criteria. Normal sella turcica, pituitary gland, infundibular stalk, optic chiasm and hypothalamus. Normal tectal plate and pineal gland. Normal midbrain, berna and medulla. Normal cerebellum. Normal basal cisterns. Normal bilateral temporal bones. Normal bilateral internal auditory canals. No demonstrated orbital abnormality, within the constraints of a routine brain study. Normal visualized paranasal sinuses. Normal calvarium and skull base. Normal visualized soft tissue structures. Normal visualized upper cervical spine. MRI/Brain without Contrast IMPRESSION: 1. Chronic ischemic and involutional changes of the brain, as described above. 2. No demonstrated acute infarct or intracranial hemorrhage 3. 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 Electronically Signed: Wesley Rivas MD at 21:21 EDT , Service support ,
--- NOTE | 2021-02-24 16:34 | MRI_ITS ---
STUDY: MRA NECK WITHOUT CONTRAST REASON FOR EXAM: Female, 86 years old. Confusion TECHNIQUE: Source images were obtained, MIPs were performed. The study was performed unenhanced. Exam limited by motion artifact. COMPARISON: MRI/MRA of the brain dated February 24, 2021 FINDINGS: RIGHT CAROTID ARTERIES: Normal right common carotid artery (CCA). Normal right common carotid bulb. Normal origin of the right internal carotid (ICA) artery without a hemodynamically significant stenosis. Normal visualized cervical portion of the right internal carotid artery. Normal origin of the right external carotid artery (ECA). LEFT CAROTID ARTERIES: Normal left common carotid artery (CCA). There is mild atherosclerotic plaque formation with minimal narrowing of the left carotid bulb. There is mild atherosclerotic plaque formation of the origin of the left internal carotid artery with less than 50% cross sectional diameter stenosis. Normal visualized cervical portion of the left internal carotid artery. Normal origin of the left external carotid artery (ECA). VERTEBRAL ARTERIES: Normal antegrade flow within the bilateral vertebral artery without a hemodynamically significant stenosis. MRI/MRA Neck without Contrast IMPRESSION: No demonstrated occlusion or hemodynamically significant stenosis of the bilateral internal carotid arteries. Electronically Signed: Wesley Rivas MD at 21:24 EDT , Service support ,
[2021-02-24 17:14] LABS: Thyroid Stim Hormone (TSH) 1.05 uIU/mL (0.358-3.74)
--- NOTE | 2021-02-24 17:18 | NURSING ---
Unable to complete NIHHS or swallowing evaluation at this time due to pt not willing to participate in care
[2021-02-24] MEDS: Potassium Chloride 10mEq/100mL 10 MEQ/100 ML IV.SOLN. 100 MEQ IV BOLUS ×4 (18:20→22:40)
--- NOTE | 2021-02-24 20:55 | NURSING ---
[facility] assessment completed to best of pt.'s ability at this time.
[2021-02-24 22:51] LABS: Bedside Glucose 143 mg/dL (70-110)
[2021-02-25] VITALS (25 sets, daily range): BP systolic 118–179; BP diastolic 56–91; PULSE 69–154; RESP 16–20; TEMP 36.4–37.4; O2SAT 96–98; BMI 20.6
[2021-02-25] MEDS: 0.9% Saline Lock 10 ML Syringe IV ×3 (05:10→11:42)
[2021-02-25] MEDS: Metoprolol Tartrate 5 MG/5 ML Vial IV ×5 (05:15→23:25)
[2021-02-25 06:39] LABS: Cholesterol 178 mg/dL (200); High Density Lipoprotein 52 mg/dL; Triglycerides 91 mg/dL; Very Low Density Lipoprotein 18 mg/dL (5-40)
[2021-02-25 06:51] LABS: Bedside Glucose 147 mg/dL (70-110)
[2021-02-25 08:17] LABS: Anion Gap 8 (5-15); BUN 23 mg/dL (7-18); BUN/Creat Ratio 38.9 RATIO (10-20); Chloride 98 mmol/L (98-107); Creatinine, Serum 0.59 mg/dL (0.55-1.02); EST Glomerular Filtration Rate 103 mL/min (>60); Est Glom Filt Rate - Afr Amer 124 mL/min (>60); Estimated Creatinine Clearance 31.04 ml/min; Glucose 148 mg/dL (74-106); Potassium 3.4 mmol/L (3.5-5.1); Sodium Level 132 mmol/L (136-145)
--- NOTE | 2021-02-25 10:24 | NT.THERAPY_ITS ---
Nutrition Therapy Report - History Nutrition Services has been consulted to:: Manage nutrient details of diet order Current diet / nutrition support order:: NPO- failed BSE, awaiting MAINTENANCE [employer]PER[employer] evaluation - Anthropometric Measurements Height:: 5 ft 1.81 in Weight:: 50.8 kg Body Mass Index (BMI):: 20.6 - Relevant Labs Relevant Labs:: RDW Std Deviation 51.8 fl (35.1-43.9) H 02/24/21 14:10 RDW Coeff of Viraj 16.2 % (11.6-14.6) H 02/24/21 14:10 Neut % (Auto) 75.6 % (47-70) H 02/24/21 14:10 Lymph % (Auto) 14.2 % (19-41) L 02/24/21 14:10 Sodium 132 mmol/L (136-145) L 02/25/21 05:58 Potassium 3.4 mmol/L (3.5-5.1) L 02/25/21 05:58 Chloride 93 mmol/L (98-107) L 02/24/21 14:10 BUN 23 mg/dL (7-18) H 02/25/21 05:58 BUN/Creatinine Ratio 38.9 RATIO (10-20) H 02/25/21 05:58 Glucose 148 mg/dL (74-106) H 02/25/21 05:58 Troponin I 0.046 ng/mL (<0.045) H 02/24/21 20:25 - Assessment Food / Nutrition-Related History:: Pt unable to provide information at this time d/t mental status. Information gathered from EMR. Pt seen recently by this RDN on 02/07/21. Pt previously reported a chronic decline in appetite/intake d/t a non-specific difficulty w/ chewing requiring soft foods/cut up meats. Reported UBW was 111# and admission wt on 02/06/21 was 103.6# indicating a 7.4#/6.6% wt loss which pt felt occurred over past 1 month, significant for malnutrition. CBW 112# however ED wt was use, so question accuracy of current wt. Nutrition focused physical exam suggests severe muscle wasting and fat loss in upper extremities, acromion, and clavicle region. - Nutrition Diagnosis Problem / Etiology / Signs & Symptoms (PES):: severe, acute malnutrition related to inadequate energy intake d/t decreased appetite, difficulty chewing/swallowing as evidenced by hx of wt loss of 7.4#/6.6% <1 month, estimated PO intake meeting <75% of nutritional needs x 1 month, and severe muscle wasting/fat loss Evidence of Malnutrition Exists:: Yes Severe PCM:: Acute Illness - Nutrition Intervention Nutrition Prescription:: 3230-7514 calories/day (30 calories/kg). 45-55 g protein/day (1 g/kg). 1410mL fluid/day (30mL/kg) - Food / Nutrient Delivery Interventions Summary of nutrition intervention:: Will await MAINTENA[employer]CE [employer] recommendations and provide further interventions as indicated. Nutrition support ordered as / adjusted to:: recommend regular diet, consistency per MAINTENA[employer]; ensure enlive 120mL 4x/day when PO diet appropriate; will order daily wts. Nutrition education provided?: No - MNT Monitoring Further MNT monitoring and evaluation required?: Yes MNT Follow-up in:: 3-5 days
[2021-02-25] MEDS: hydrALAZINE 20 MG/ML Vial 10 MG IV (10:32)
[2021-02-25] MEDS: Enoxaparin 40 MG/0.4 ML Syringe SC (11:41)
[2021-02-25 12:36] LABS: Bedside Glucose 143 mg/dL (70-110)
--- NOTE | 2021-02-25 13:03 | CHAPLAIN ---
Type of Pastoral Visit _x__ Initial Visit ___ Follow-up Visit ___ On-call Visit ___ General Patient Visit ___ Spiritual Assessment ___ Family Conference ___ Bereavement ___ Rapid Response ___ Code Blue ___ Other (describe below) Pastoral Care Referral From ___ Patient _x__ Family ___ Nurse ___ Physician ___ Global Implementation Manager ___ Live In Companion ___ Other (describe below) Sacrament/Intervention _x__ Active listening ___ Anointing ___ Mandaeism ___ Bereavement ___ Communion ___ Nagela exploration ___ ___ Life review _x__ Prayer ___ Reconciliation ___ Sacrament of Sick _x__ Supportive presence ___ Wedding ___ Other (describe below) Pastoral Comments spouse at bedside; offer of support to both; pt does not open eyes but speaks repetitive words; pt and spouse are frequent visitors to hospital [facility] program and eat lunch here; patient is a person of angela that has welcomed spiritual care in the past; spouse expresses thankfulness for visit and support today
--- NOTE | 2021-02-25 13:34 | PN_ITS ---
<Azul Friedman SPOT SPRAYER - Last Filed: 02/25/21 13:41> Patient Problems: Active and Suspected Problems (Last Updated 12/01/19 @ 10:54 by Coleen oliveros) Hypokalemia (Acute) Acute encephalopathy (Acute) Subjective: Patient seen and examined. Remains confused. Refusing therapies. Repeating words over and over. No focal deficits. - Physical Exam Vitals/I&O's: Vital Signs Temp Pulse Resp BP Pulse Ox 98.0 F 98 20 H 130/62 H 97 02/25/21 10:15 02/25/21 11:42 02/25/21 10:15 02/25/21 11:42 02/25/21 10:15 Oxygen Delivery Method Room Air Weight: 111 lb 15.917 oz Body Mass Index (BMI) 20.6 Finger Stick Blood Glucose 212 Intake and Output for Last 24 Hours 02/23/21 02/24/21 02/25/21 23:59 23:59 23:59 Intake Total 400.00 / 400.00 0 / 0 Output Total 0 / 0 Balance 400.00 / 400.00 0 / 0 General: Alert, No apparent distress HEENT: Atraumatic, PERRLA, EOMI, Normocephalic Neck: Supple, No JVD, Negative Carotid Bruits Lungs: Clear to auscultation, Normal air movement Cardiovascular: Regular rate, No murmurs Abdomen: Bowel Sounds Present, Soft, Non Tender, Non-Distended Extremities: No clubbing, No cyanosis, No edema, Capillary Refill Less than 3 Seconds Skin: No rashes, No breakdown Musculoskeletal: No Tenderness to Palpation of Joints or Extremities Neurological: Cranial nerves II-XII grossly intact, Neuro grossly intact Psych/Mental Status: Anxious, Impulsive, Irrational Behavior Laboratory Results 02/24/21 14:10: WBC 9.1, RBC 4.71, Hgb 13.8, Hct 41.0, MCV 87.0, MCH 29.3, MCHC 33.7, RDW Std Deviation 51.8 H, RDW Coeff of Viraj 16.2 H, Plt Count 413, MPV 9.4, Immature Gran % (Auto) 0.400, Neut % (Auto) 75.6 H, Lymph % (Auto) 14.2 L, [place] % (Auto) 5.2, Eos % (Auto) 4.3, Baso % (Auto) 0.3, Absolute Neuts (auto) 6.9, Absolute Lymphs (auto) 1.29, Nucleated RBC % 0 02/24/21 14:10: PT 12.9, INR 1.0, APTT 27.3 02/24/21 14:10: Sodium 131 L, Potassium 2.9 L, Chloride 93 L, Carbon Dioxide 30.0, Anion Gap 8, BUN 35 H, Creatinine 0.86, Estim Creat Clear Calc 37.83, Est GFR (MDRD) Af Amer 81, Est GFR (MDRD) Non-Af 67, BUN/Creatinine Ratio 40.7 H, Glucose 180 H, Calcium 9.8, Troponin I 0.041 02/24/21 14:10: Magnesium 2.0, TSH 1.05 02/24/21 14:40: Urine Color Yellow, Urine Clarity Sl. Cloudy, Urine pH 5.0, Ur Specific [place] 1.020, Urine Protein 15 H, Urine Glucose (UA) 50 H, Urine Ketones 15 H, Urine Occult Blood 25 H, Urine Nitrite Negative, Urine Bilirubin Negative, Urine Urobilinogen Normal, Ur Leukocyte Esterase 25 H, Urine RBC 0-5 SEEN, Urine WBC 0-5 SEEN, Ur Squamous Epith Cells 0-5 SEEN, Urine Bacteria 0 SEEN, Urine Mucus 0 SEEN 02/24/21 17:21: Troponin I 0.043 02/24/21 20:25: Troponin I 0.046 H 02/24/21 22:42: POC Glucose 143 H 02/25/21 05:58: Triglycerides 91, Cholesterol 178, LDL Cholesterol 108, VLDL Cholesterol 18, HDL Cholesterol 52 02/25/21 05:58: Sodium 132 L, Potassium 3.4 L, Chloride 98, Carbon Dioxide 26.0, Anion Gap 8, BUN 23 H, Creatinine 0.59, Estim Creat Clear Calc 31.04, Est GFR (MDRD) Af Amer 124, Est GFR (MDRD) Non-Af 103, BUN/Creatinine Ratio 38.9 H, Glucose 148 H, Calcium 9.0 02/25/21 06:45: POC Glucose 147 H 02/25/21 12:00: POC Glucose 143 H Current Medications Acetaminophen (Acetaminophen 325 Mg Tablet) 650 mg PO Q6H PRN PRN PRN Reason: Pain Score 1-10/Temp > 100.7 F Aspirin (Aspirin 81 Mg Tab.Chew) 81 mg PO DAILY@0800 [facility] Last Admin: 02/25/21 10:37 Dose: Not Given Documented by: Atorvastatin Calcium (Atorvastatin Calcium 80 Mg Tablet) 80 mg PO QHS [facility] Last Admin: 02/24/21 22:56 Dose: Not Given Documented by: Enoxaparin Sodium (Enoxaparin 40 Mg/0.4 Ml Syringe) 40 mg SC DAILY [facility] Last Admin: 02/25/21 11:41 Dose: 40 mg Documented by: Hydralazine HCl (Hydralazine 20 Mg/Ml Vial) 10 mg IV Q4H PRN PRN PRN Reason: BLOOD PRESSURE Last Admin: 02/25/21 10:32 Dose: 10 mg Documented by: Insulin Glargine (Insulin Glargine 100 Units/Ml Pen) 23 units SC BREAKFAST [facility] Last Admin: 02/25/21 10:02 Dose: Not Given Documented by: Insulin Human Lispro (Insulin Lispro 100 Unit/Ml Insuln.Pen) 0 unit SC [facility]; Protocol Last Admin: 02/25/21 12:41 Dose: Not Given Documented by: Metoprolol Tartrate (Metoprolol Tartrate 100 Mg Tablet) 100 mg PO QHS [facility] Last Admin: 02/24/21 22:56 Dose: Not Given Documented by: Metoprolol Tartrate (Metoprolol Tartrate 50 Mg Tablet) 50 mg PO BREAKFAST [facility] Last Admin: 02/25/21 10:37 Dose: Not Given Documented by: Metoprolol Tartrate (Metoprolol Tartrate 5 Mg/5 Ml Vial) 5 mg IV Q6 [facility] Last Admin: 02/25/21 11:42 Dose: 5 mg Documented by: Ondansetron HCl (Ondansetron 4 Mg/2 Ml Vial) 4 mg IV Q8H PRN PRN PRN Reason: NAUSEA/VOMITING Sodium Chloride (0.9% Saline Lock 10 Ml Syringe) 10 - 40 ml IV UD PRN PRN Reason: SALINE FLUSH Last Admin: 02/25/21 11:42 Dose: 10 ml Documented by: Medical Necessity - Tobacco Use Smoking Status: Never smoker Assessment/Plan All Active Problems (Last Updated 12/01/19 @ 10:54 by Coleen Keane) Hypokalemia (Acute) Acute encephalopathy (Acute) 1. Acute encephalopathy-CVA ruled out. MRI of brain without acute infarct. Neck MRA shows no significant stenosis. Patient refused echocardiogram. UA and chest x-ray unremarkable. No evidence of infectious or metabolic etiology. Will consult behavioral health/[facility] pending discussion with family. Patient is medically cleared for psychiatric evaluation. 2. Hypokalemia-replaced per protocol. Trend BMP. 3. Paroxysmal atrial fibrillation-not on anticoagulation. Continue metoprolol. 4. Hypertension-continue amlodipine, metoprolol. 5. Mild dementia-not on regimen. 6. Type 2 diabetes [id number]-Vxcp-Iphzk with sliding scale insulin. Continue home insulin regimen. Hold metformin. 7. Severe protein calorie malnutrition-due to severe muscle wasting/fat loss, recent weight loss and inadequate oral intake. Dietitian consult. 8. Recent left hip pain radiculopathy-epidural injection last week by Ortho. PT/OT. DVT prophylaxis-Lovenox subcu Discharge planning-patient's discussing with daughter approval to proceed with [facility] evaluation. This patient was seen by MURRAY Bernardo under the supervision of Dr. Summers. <Tab Summers F - Last Filed: 02/25/21 15:22> - Physical Exam Vitals/I&O's: Vital Signs Temp Pulse Resp BP Pulse Ox 98.0 F 98 20 H 130/62 H 97 02/25/21 10:15 02/25/21 11:42 02/25/21 10:15 02/25/21 11:42 02/25/21 10:15 Oxygen Delivery Method Room Air Weight: 111 lb 15.917 oz Body Mass Index (BMI) 20.6 Finger Stick Blood Glucose 212 Intake and Output for Last 24 Hours 02/23/21 02/24/21 02/25/21 23:59 23:59 23:59 Intake Total 400.00 / 400.00 0 / 0 Output Total 0 / 0 Balance 400.00 / 400.00 0 / 0 Laboratory Results 02/24/21 14:10: Magnesium 2.0, TSH 1.05 02/24/21 17:21: Troponin I 0.043 02/24/21 20:25: Troponin I 0.046 H 02/24/21 22:42: POC Glucose 143 H 02/25/21 05:58: Triglycerides 91, Cholesterol 178, LDL Cholesterol 108, VLDL Cholesterol 18, HDL Cholesterol 52 02/25/21 05:58: Sodium 132 L, Potassium 3.4 L, Chloride 98, Carbon Dioxide 26.0, Anion Gap 8, BUN 23 H, Creatinine 0.59, Estim Creat Clear Calc 31.04, Est GFR (MDRD) Af Amer 124, Est GFR (MDRD) Non-Af 103, BUN/Creatinine Ratio 38.9 H, Glucose 148 H, Calcium 9.0 02/25/21 06:45: POC Glucose 147 H 02/25/21 12:00: POC Glucose 143 H Current Medications Acetaminophen (Acetaminophen 325 Mg Tablet) 650 mg PO Q6H PRN PRN PRN Reason: Pain Score 1-10/Temp > 100.7 F Aspirin (Aspirin 81 Mg Tab.Chew) 81 mg PO DAILY@0800 [facility] Last Admin: 02/25/21 10:37 Dose: Not Given Documented by: Atorvastatin Calcium (Atorvastatin Calcium 80 Mg Tablet) 80 mg PO QHS [facility] Last Admin: 02/24/21 22:56 Dose: Not Given Documented by: Enoxaparin Sodium (Enoxaparin 40 Mg/0.4 Ml Syringe) 40 mg SC DAILY [facility] Last Admin: 02/25/21 11:41 Dose: 40 mg Documented by: Hydralazine HCl (Hydralazine 20 Mg/Ml Vial) 10 mg IV Q4H PRN PRN PRN Reason: BLOOD PRESSURE Last Admin: 02/25/21 10:32 Dose: 10 mg Documented by: Potassium Chloride () 10 meq in 100 mls @ 100 mls/hr IV BOLUS Q1H [facility] Stop: 02/25/21 15:44 Last Admin: 02/25/21 14:57 Dose: 100 mls/hr Documented by: Sodium Chloride () 1,000 mls @ 75 mls/hr IV .[id number] [facility] Last Admin: 02/25/21 14:26 Dose: 75 mls/hr Documented by: Insulin Glargine (Insulin Glargine 100 Units/Ml Pen) 23 units SC BREAKFAST [facility] Last Admin: 02/25/21 10:02 Dose: Not Given Documented by: Insulin Human Lispro (Insulin Lispro 100 Unit/Ml Insuln.Pen) 0 unit SC ACHS SC H; Protocol Last Admin: 02/25/21 12:41 Dose: Not Given Documented by: Metoprolol Tartrate (Metoprolol Tartrate 100 Mg Tablet) 100 mg PO QHS [facility] Last Admin: 02/24/21 22:56 Dose: Not Given Documented by: Metoprolol Tartrate (Metoprolol Tartrate 50 Mg Tablet) 50 mg PO BREAKFAST [facility] Last Admin: 02/25/21 10:37 Dose: Not Given Documented by: Metoprolol Tartrate (Metoprolol Tartrate 5 Mg/5 Ml Vial) 5 mg IV Q6 [facility] Last Admin: 02/25/21 11:42 Dose: 5 mg Documented by: Ondansetron HCl (Ondansetron 4 Mg/2 Ml Vial) 4 mg IV Q8H PRN PRN PRN Reason: NAUSEA/VOMITING Sodium Chloride (0.9% Saline Lock 10 Ml Syringe) 10 - 40 ml IV UD PRN PRN Reason: SALINE FLUSH Last Admin: 02/25/21 11:42 Dose: 10 ml Documented by: Addendum: Dr. Summers I personally examined the patient and reviewed the chart. I agree with the above. 86-year-old female presents from home secondary to confusion. She has been repeating herself over and over again on her exam yesterday and today was unaware that she had already had an MRI she was refusing all other tests. She did end up having her MRI yesterday and this was negative for stroke. She did have a UA which did not indicate a UTI. Her BUN is improving but she still seems to be a little bit confused. Her potassium has increased from 2.9 to 3.4 and her CBC was unremarkable yesterday. I would like to get an EEG however she is adamant about not having anything done to her and there I feel that this will likely not be a successful attempt. We will have [facility] evaluate her. OBSV E&M: [id number] Subsequent observation care L2
--- NOTE | 2021-02-25 13:44 | CASEMGMT ---
SW did not complete a PHQ 9 as patient did not have a TIA or Stroke per physician. Michelle MCKINNEY
[2021-02-25] MEDS: 0.9% Normal Saline 1,000 ML 75 ML IV (14:26)
[2021-02-25] MEDS: Potassium Chloride 10mEq/100mL 10 MEQ/100 ML IV.SOLN. 100 MEQ IV BOLUS ×2 (14:57→16:18)
--- NOTE | 2021-02-25 15:00 | CASEMGMT ---
SHANNON CM in to complete SCOTT Form with as patient is confused. RN CM explained SCOTT form to , voiced understanding and signed form. Signed form placed in chart. provided with copy of signed form. had no further questions or concerns at this time.
[2021-02-25 16:26] LABS: Bedside Glucose 124 mg/dL (70-110)
[2021-02-25 22:36] LABS: Bedside Glucose 92 mg/dL (70-110)
[2021-02-25] MEDS: Ketorolac 15 MG/ML Vial IV (23:24)
[2021-02-26] VITALS (10 sets, daily range): BP systolic 139–175; BP diastolic 51–79; PULSE 71–96; RESP 16–18; TEMP 36.9–37.2; O2SAT 97–99
[2021-02-26] MEDS: 0.9% Normal Saline 1,000 ML 75 ML IV ×2 (03:55→16:26)
[2021-02-26] MEDS: Metoprolol Tartrate 5 MG/5 ML Vial IV (05:53)
[2021-02-26 06:37] LABS: Hematocrit 33.3 % (37-47); Hemoglobin 11.4 g/dL (12.0-15.0); Mean Corp Hgb Conc 34.2 g/dL (32-36); Mean Corpuscular Hgb 30.2 pg (27.0-32.0); Mean Corpuscular Volume 88.3 fL (81-99); Platelet Count 279 K/mm3 (150-450); RBC Distribution Width CV 16.4 % (11.6-14.6); RBC Distribution Width SD 53.2 fl (35.1-43.9); Red Blood Count 3.77 M/mm3 (4.2-5.4); White Blood Count 6.1 K/mm3 (4.4-11.0)
[2021-02-26 06:51] LABS: Bedside Glucose 69 mg/dL (70-110)
[2021-02-26 06:52] LABS: Anion Gap 9 (5-15); BUN 19 mg/dL (7-18); BUN/Creat Ratio 37.9 RATIO (10-20); Calcium,Total 8.7 mg/dL (8.5-10.1); Chloride 101 mmol/L (98-107); EST Glomerular Filtration Rate 124 mL/min (>60); Est Glom Filt Rate - Afr Amer 150 mL/min (>60); Estimated Creatinine Clearance 30.71 ml/min; Glucose 78 mg/dL (74-106); Potassium 3.2 mmol/L (3.5-5.1); Sodium Level 138 mmol/L (136-145)
[2021-02-26 08:20] LABS: Bedside Glucose 73 mg/dL (70-110)
[2021-02-26] MEDS: Enoxaparin 40 MG/0.4 ML Syringe SC (09:27)
[2021-02-26 09:31] LABS: Bedside Glucose 73 mg/dL (70-110)
[2021-02-26] MEDS: Metoprolol Tartrate 50 MG Tablet PO (10:43)
[2021-02-26] MEDS: Aspirin 81 MG TAB.CHEW PO (10:45)
[2021-02-26] MEDS: Potassium Chloride Oral Tablet 20 MEQ 60 MEQ PO (12:57)
--- NOTE | 2021-02-26 13:02 | PCM.DC ---
- Discharge Diagnoses Current Active Problems: Current Active and Chronic Problems (Last Updated 12/01/19 @ 10:54 by Coleen Keane) Arthritis of left sacroiliac joint (Chronic) Hypertension (Chronic) Diabetes 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 (Chronic) Hypokalemia (Acute) Chronic hyponatremia (Chronic) Acute encephalopathy (Acute) You will use the following diet at home:: No restrictions Your food should be the consistency of: Regular Your liquids should be the consistency of: Regular/Thin Discharge Activity: Return to Normal Activity Allergies/Adverse Reactions: Allergies No Known Allergies Allergy (Verified 02/24/21 14:12) Medications to take at Discharge amlodipine 10 mg tablet 10 mg PO DAILY 12/01/19 ascorbic acid (vitamin C) 1,000 mg tablet 1,000 mg PO DAILY 12/01/19 biotin 10,000 mcg capsule 1 cap PO DAILY 12/01/19 cholecalciferol (vitamin D3) 125 mcg (5,000 unit) disintegrating tablet 1 tab PO DAILY 12/01/19 cinnamon bark 500 mg capsule 500 mg PO DAILY 12/01/19 coenzyme Q10 100 mg capsule 100 mg PO DAILY 12/01/19 garlic extract 600 mg tablet 600 mg PO DAILY 12/01/19 marine (Zingiber officinalis) 550 mg capsule 550 mg PO DAILY 12/01/19 lutein 40 mg capsule 40 mg PO DAILY 12/01/19 magnesium 250 mg tablet 250 mg PO DAILY 12/01/19 metformin 500 mg tablet,extended release 24 hr 500 mg PO TIDCM 12/01/19 metoprolol tartrate 50 mg tablet 100 mg PO QHS 12/01/19 niacin 500 mg tablet 1,000 mg PO DAILY 12/01/19 omega-3 acid ethyl esters 1 gram capsule 2 cap PO BID 12/01/19 red yeast rice 600 mg capsule 600 mg PO BID 12/01/19 turmeric 400 mg capsule 400 mg PO BID 12/01/19 Insulin Glargine,Hum.rec.anlog [Mick Ugalde] 23 unit SQ BREAKFAST 07/04/20 Metoprolol Tartrate 50 mg PO BREAKFAST 07/04/20 Zinc Gluconate [Zinc] 100 mg PO DAILY 07/04/20 Acetaminophen [Tylenol Tablet] 650 mg PO Q6H PRN PRN tab 02/09/21 Ensure Enlive 120 ml PO 4X/DAY liquid 02/09/21 Aspirin 81 mg PO DAILY #30 tab.chew 02/26/21 Atorvastatin Calcium [Lipitor] 40 mg PO BID #60 tablet 02/26/21 The following prescriptions were given: Aspirin 81 mg PO DAILY #30 tab.chew Transmission Status: Pending to [id number] Atorvastatin Calcium [Lipitor] 40 mg PO BID #60 tablet Transmission Status: Pending to [id number] Primary Care Physician: Antonino Rosario DO [Primary Care Provider] - Please follow up with your Primary Care Physician in: Within the next 2 weeks Test Results: Test results from this visit will be discussed in further detail at your follow-up appointment, if applicable. Proposed Discharge Date: 02/26/21
--- NOTE | 2021-02-26 13:05 | DS.PCM_ITS ---
<Rene Low - Last Filed: 02/26/21 13:05> Discharge Date and Diagnosis - Problem List Patient Problems: Active and Suspected Problems (Last Updated 12/01/19 @ 10:54 by Coleen Keane) Hypokalemia (Acute) Acute encephalopathy (Acute) Date of Admission: 02/24/21 Date of Discharge: 02/26/21 - Primary Discharge Diagnosis Acute Problems: Active Problems (Last Updated 12/01/19 @ 10:54 by Coleen Keane) Hypokalemia (Acute) Acute encephalopathy (Acute) - Secondary Discharge Diagnosis Chronic Problems: Chronic Problems (Last Updated 12/01/19 @ 10:54 by Coleen Keane) Arthritis of left sacroiliac joint (Chronic) Hypertension (Chronic) Diabetes 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 (Chronic) Chronic hyponatremia (Chronic) Hospital Course and Treatment Imaging Results: Clinical Impression(s) from Imaging Studies Brain CT 02/24/21 14:02 IMPRESSION: Chronic involutional changes of the brain. N.B. : The above information has been verbally conveyed by Desean Harris MD to Dr Louis MD, on 02/24/2021 14:16:41 (ET). Electronically Signed: Desean Harris MD at 14:17 EDT , Service support , ADDENDUM: 02/24/21 1424 IMPRESSION: Chronic involutional changes of the brain. N.B. : The above information has been verbally conveyed by Desean Harris MD to Dr Louis MD, on 02/24/2021 14:16:41 (ET). Electronically Signed: Desean Harris MD at 14:17 EDT , Service support , Chest X-Ray 02/24/21 14:50 IMPRESSION: Hyperinflation. The lungs are clear. Electronically Signed: Desean Harris MD at 15:07 EDT , Service support , Brain MRI 02/24/21 16:34 IMPRESSION: 1. Chronic ischemic and involutional changes of the brain, as described above. 2. No demonstrated acute infarct or intracranial hemorrhage 3. 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 Electronically Signed: Wesley Rivas MD at 21:21 EDT , Service support , Head MRA 02/24/21 16:34 IMPRESSION: 1. There is no demonstrated aneurysm of the [place]. There is no major vessel occlusion or hemodynamically significant stenosis. Electronically Signed: Wesley Rivas MD at 20:53 EDT , Service support , Neck MRA 02/24/21 16:34 IMPRESSION: No demonstrated occlusion or hemodynamically significant stenosis of the bilateral internal carotid arteries. Electronically Signed: Wesley Rivas MD at 21:24 EDT , Service support , Consultations 02/26/21 09:13 Consult: Mental Health/Crisis Routine Reason for consult?: [facility] psych evaluation Date Notified:: 02/26/21 Time Notified:: 09:13 Operations: None Summary of Care Provided: Patient is an 86-year-old female who presented to the ED on 02/24/2021 with a chief complaint of confusion. Patient was admitted for acute encephalopathy of unclear etiology and hypokalemia. CVA was ruled out throughout admission. MRI revealed no evidence of acute infarct. MRA showed no significant stenosis. UA and chest x-ray were unremarkable. CBC and BMP were unremarkable for any metabolic or infectious etiology. Over the course of her admission patient's mentation change from the confusion and delirium seen at admission, to being alert and oriented with appropriate mentation today. Psychiatric evaluation was conducted and found no cause to admit patient to a longer term care facility. It was decided between the hospital medicine team, business taxes specialist and family that the patient would improve better at home. Patient will be discharged today. 1) Acute encephalopathy of unclear etiology Assessment - Head and neck imaging revealed no evidence of ischemia or acute infarct - Psychiatric evaluation conducted and determined that the patient is not in need of long-term psychiatric care - CBC, BMP, UA unremarkable - Patient is alert and oriented and able to express wishes today - Considering medication interactions considering patient's herbal regimen as cause of patient's confusion Plan - Resolved - Follow-up with primary care provider within the next 2 weeks - Aspirin and statin regimen initiated on discharge for secondary prevention 2) Hypokalemia Assessment - 2.9 at admission - 3.2 on 02/26/2021 - Trending upwards 3) A-Fib Assessment - Not on anticoagulation Plan - Continue metoprolol regimen -Aspirin and statin regimen initiated at discharge 4) Hypertension Assessment - 139/51 on 02/26/2021 - Stable Plan -Continue amlodipine and metoprolol 5) DM 2 Assessment - POC glucose 73 - Stable Plan - Continue home insulin regimen and Metformin on discharge 6) Mild dementia Assessment - Currently not on a regimen Plan - Follow-up with primary care provider within the next 2 weeks 7) Protein/calorie malnutrition Assessment - Severe muscle wasting/fat loss due to inadequate oral intake - Dietitian consult conducted while admitted Plan - Follow-up with primary care provider within the next 2 weeks Patient seen by Rene Low PA-C, under the supervision of Dr. Summers. Patient Problems: Active and Suspected Problems (Last Updated 12/01/19 @ 10:54 by Coleen Keane) Hypokalemia (Acute) Acute encephalopathy (Acute) Subjective: Patient is an 86-year-old female comfortably resting in a chair, alert and oriented x3. Patient reports resolution of her confusion at admission. Denies fever, chills, N/V/D, chest pain, shortness of breath. Objective: Clinical Impression(s) from Imaging Studies Brain CT 02/24/21 14:02 IMPRESSION: Chronic involutional changes of the brain. N.B. : The above information has been verbally conveyed by Desean Harris MD to Dr Louis MD, on 02/24/2021 14:16:41 (ET). Electronically Signed: Desean Harris MD at 14:17 EDT , Service support , ADDENDUM: 02/24/21 1424 IMPRESSION: Chronic involutional changes of the brain. N.B. : The above information has been verbally conveyed by Desean Harris MD to Dr Louis MD, on 02/24/2021 14:16:41 (ET). Electronically Signed: Desean Harris MD at 14:17 EDT , Service support , Chest X-Ray 02/24/21 14:50 IMPRESSION: Hyperinflation. The lungs are clear. Electronically Signed: Desean Harris MD at 15:07 EDT , Service support , Brain MRI 02/24/21 16:34 IMPRESSION: 1. Chronic ischemic and involutional changes of the brain, as described above. 2. No demonstrated acute infarct or intracranial hemorrhage 3. 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 Electronically Signed: Wesley Rivas MD at 21:21 EDT , Service support , Head MRA 02/24/21 16:34 IMPRESSION: 1. There is no demonstrated aneurysm of the [place]. There is no major vessel occlusion or hemodynamically significant stenosis. Electronically Signed: Wesley Rivas MD at 20:53 EDT , Service support , Neck MRA 02/24/21 16:34 IMPRESSION: No demonstrated occlusion or hemodynamically significant stenosis of the bilateral internal carotid arteries. Electronically Signed: Wesley Rivas MD at 21:24 EDT , Service support , - Physical Exam Vitals/I&O's: Vital Signs Temp Pulse Resp BP Pulse Ox 98.9 F 71 18 139/51 H 99 02/26/21 13:01 02/26/21 13:01 02/26/21 13:01 02/26/21 13:01 02/26/21 13:01 Oxygen Delivery Method Room Air Weight: 104 lb 4.458 oz Body Mass Index (BMI) 20.6 Finger Stick Blood Glucose 212 Intake and Output for Last 24 Hours 02/24/21 02/25/21 02/26/21 23:59 23:59 23:59 Intake Total 400.00 / 400.00 200 / 200 1400 / 1400 Output Total 0 / 0 Balance 400.00 / 400.00 200 / 200 1400 / 1400 General: Alert, Oriented x3, Cooperative HEENT: Atraumatic, PERRLA, EOMI, Normocephalic Neck: Supple, No JVD, Negative Carotid Bruits Lungs: Clear to auscultation, Normal air movement Cardiovascular: Regular rate, No murmurs Abdomen: Bowel Sounds Present, Soft, Non Tender Extremities: No edema, Capillary Refill Less than 3 Seconds Skin: No rashes, No breakdown Musculoskeletal: No Tenderness to Palpation of Joints or Extremities Neurological: Cranial nerves II-XII grossly intact Psych/Mental Status: Normal Affect, Appropriate Laboratory Results 02/25/21 16:17: POC Glucose 124 H 02/25/21 22:04: POC Glucose 92 02/26/21 06:24: WBC 6.1, RBC 3.77 L, Hgb 11.4 L, Hct 33.3 L, MCV 88.3, MCH 30.2, MCHC 34.2, RDW Std Deviation 53.2 H, RDW Coeff of Viraj 16.4 H, Plt Count 279, MPV 9.0 02/26/21 06:24: Sodium 138, Potassium 3.2 L, Chloride 101, Carbon Dioxide 28.0, Anion Gap 9, BUN 19 H, Creatinine 0.50 L, Estim Creat Clear Calc 30.71, Est GFR (MDRD) Af Amer 150, Est GFR (MDRD) Non-Af 124, BUN/Creatinine Ratio 37.9 H, Glucose 78, Calcium 8.7 02/26/21 06:45: POC Glucose 69 L 02/26/21 07:57: POC Glucose 73 02/26/21 09:26: POC Glucose 73 Current Medications Acetaminophen (Acetaminophen 325 Mg Tablet) 650 mg PO Q6H PRN PRN PRN Reason: Pain Score 1-10/Temp > 100.7 F Aspirin (Aspirin 81 Mg Tab.Chew) 81 mg PO DAILY@0800 [facility] Last Admin: 02/26/21 10:45 Dose: 81 mg Documented by: Atorvastatin Calcium (Atorvastatin Calcium 80 Mg Tablet) 80 mg PO QHS [facility] Last Admin: 02/25/21 22:30 Dose: Not Given Documented by: Dextrose (Dextrose 50%-Water 25 Gm/50 Ml Disp.Syrin) 0 gm IV X1 PRN; Protocol PRN Reason: Hypoglycemia Enoxaparin Sodium (Enoxaparin 40 Mg/0.4 Ml Syringe) 40 mg SC DAILY [facility] Last Admin: 02/26/21 09:27 Dose: 40 mg Documented by: Glucagon (Glucagon 1 Mg/Ml Syringe) 1 mg IM .X1 PRN PRN Reason: Hypoglycemia Hydralazine HCl (Hydralazine 20 Mg/Ml Vial) 10 mg IV Q4H PRN PRN PRN Reason: BLOOD PRESSURE Last Admin: 02/25/21 10:32 Dose: 10 mg Documented by: Sodium Chloride () 1,000 mls @ 75 mls/hr IV .[id number] [facility] Last Admin: 02/26/21 03:55 Dose: 75 mls/hr Documented by: Insulin Glargine (Insulin Glargine 100 Units/Ml Pen) 23 units SC BREAKFAST [facility] Last Admin: 02/26/21 07:45 Dose: Not Given Documented by: Insulin Human Lispro (Insulin Lispro 100 Unit/Ml Insuln.Pen) 0 unit SC ACHS [facility]; Protocol Last Admin: 02/26/21 10:38 Dose: Not Given Documented by: Metoprolol Tartrate (Metoprolol Tartrate 100 Mg Tablet) 100 mg PO QHS [facility] Last Admin: 02/25/21 22:30 Dose: Not Given Documented by: Metoprolol Tartrate (Metoprolol Tartrate 50 Mg Tablet) 50 mg PO BREAKFAST [facility] Last Admin: 02/26/21 10:43 Dose: 50 mg Documented by: Ondansetron HCl (Ondansetron 4 Mg/2 Ml Vial) 4 mg IV Q8H PRN PRN PRN Reason: NAUSEA/VOMITING Sodium Chloride (0.9% Saline Lock 10 Ml Syringe) 10 - 40 ml IV UD PRN PRN Reason: SALINE FLUSH Last Admin: 02/25/21 11:42 Dose: 10 ml Documented by: Discharge Diet: No Restrictions Discharge Activity: Return to Normal Activity Home Medications: Medications to take at Discharge amlodipine 10 mg tablet 10 mg PO DAILY 12/01/19 ascorbic acid (vitamin C) 1,000 mg tablet 1,000 mg PO DAILY 12/01/19 biotin 10,000 mcg capsule 1 cap PO DAILY 12/01/19 cholecalciferol (vitamin D3) 125 mcg (5,000 unit) disintegrating tablet 1 tab PO DAILY 12/01/19 cinnamon bark 500 mg capsule 500 mg PO DAILY 12/01/19 coenzyme Q10 100 mg capsule 100 mg PO DAILY 12/01/19 garlic extract 600 mg tablet 600 mg PO DAILY 12/01/19 marine (Zingiber officinalis) 550 mg capsule 550 mg PO DAILY 12/01/19 lutein 40 mg capsule 40 mg PO DAILY 12/01/19 magnesium 250 mg tablet 250 mg PO DAILY 12/01/19 metformin 500 mg tablet,extended release 24 hr 500 mg PO TIDCM 12/01/19 metoprolol tartrate 50 mg tablet 100 mg PO QHS 12/01/19 niacin 500 mg tablet 1,000 mg PO DAILY 12/01/19 omega-3 acid ethyl esters 1 gram capsule 2 cap PO BID 12/01/19 red yeast rice 600 mg capsule 600 mg PO BID 12/01/19 turmeric 400 mg capsule 400 mg PO BID 12/01/19 Insulin Glargine,Hum.rec.anlog [Mick Ugalde] 23 unit SQ BREAKFAST 07/04/20 Metoprolol Tartrate 50 mg PO BREAKFAST 07/04/20 Zinc Gluconate [Zinc] 100 mg PO DAILY 07/04/20 Acetaminophen [Tylenol Tablet] 650 mg PO Q6H PRN PRN tab 02/09/21 Ensure Enlive 120 ml PO 4X/DAY liquid 02/09/21 Aspirin 81 mg PO DAILY #30 tab.chew 02/26/21 Atorvastatin Calcium [Lipitor] 40 mg PO BID #60 tablet 02/26/21 Following Prescriptions Were Given to Patient: Aspirin 81 mg PO DAILY #30 tab.chew Transmission Status: Received by [facility] [id number] Atorvastatin Calcium [Lipitor] 40 mg PO BID #60 tablet Transmission Status: Received by [facility] [id number] Primary Care Physician: Antonino Rosario DO [Primary Care Provider] - Please follow up with your Primary Care Physician in: Within the next 2 weeks Disposition: Home Minutes spent on discharge:: 35 Patient Condition:: Stable Medical Necessity - Tobacco Use Smoking Status: Never smoker Meaningful Use Info Meaningful Use Diagnoses (Choose all that apply): None applicable <Tab Summers F - Last Filed: 02/26/21 13:53> Discharge Date and Diagnosis - Primary Discharge Diagnosis Acute Problems: Active Problems (Last Updated 12/01/19 @ 10:54 by Coleen Keane) Hypokalemia (Acute) Acute encephalopathy (Acute) - Secondary Discharge Diagnosis Chronic Problems: Chronic Problems (Last Updated 12/01/19 @ 10:54 by Coleen Keane) Arthritis of left sacroiliac joint (Chronic) Hypertension (Chronic) Diabetes 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 (Chronic) Chronic hyponatremia (Chronic) Hospital Course and Treatment Consultations 02/26/21 09:13 Consult: Mental Health/Crisis Routine Reason for consult?: [facility] psych evaluation Date Notified:: 02/26/21 Time Notified:: 09:13 Summary of Care Provided: The patient is a 86 year old F [] - Physical Exam Vitals/I&O's: Vital Signs Temp Pulse Resp BP Pulse Ox 98.9 F 71 18 139/51 H 99 02/26/21 13:01 02/26/21 13:01 02/26/21 13:01 02/26/21 13:01 02/26/21 13:01 Oxygen Delivery Method Room Air Weight: 104 lb 4.458 oz Body Mass Index (BMI) 20.6 Finger Stick Blood Glucose 212 Intake and Output for Last 24 Hours 02/24/21 02/25/21 02/26/21 23:59 23:59 23:59 Intake Total 400.00 / 400.00 200 / 200 1400 / 1400 Output Total 0 / 0 Balance 400.00 / 400.00 200 / 200 1400 / 1400 Laboratory Results 02/25/21 16:17: POC Glucose 124 H 02/25/21 22:04: POC Glucose 92 02/26/21 06:24: WBC 6.1, RBC 3.77 L, Hgb 11.4 L, Hct 33.3 L, MCV 88.3, MCH 30.2, MCHC 34.2, RDW Std Deviation 53.2 H, RDW Coeff of Viraj 16.4 H, Plt Count 279, MPV 9.0 02/26/21 06:24: Sodium 138, Potassium 3.2 L, Chloride 101, Carbon Dioxide 28.0, Anion Gap 9, BUN 19 H, Creatinine 0.50 L, Estim Creat Clear Calc 30.71, Est GFR (MDRD) Af Amer 150, Est GFR (MDRD) Non-Af 124, BUN/Creatinine Ratio 37.9 H, Glucose 78, Calcium 8.7 02/26/21 06:45: POC Glucose 69 L 02/26/21 07:57: POC Glucose 73 02/26/21 09:26: POC Glucose 73 02/26/21 13:07: POC Glucose 234 H Current Medications Acetaminophen (Acetaminophen 325 Mg Tablet) 650 mg PO Q6H PRN PRN PRN Reason: Pain Score 1-10/Temp > 100.7 F Aspirin (Aspirin 81 Mg Tab.Chew) 81 mg PO DAILY@0800 [facility] Last Admin: 02/26/21 10:45 Dose: 81 mg Documented by: Atorvastatin Calcium (Atorvastatin Calcium 80 Mg Tablet) 80 mg PO QHS [facility] Last Admin: 02/25/21 22:30 Dose: Not Given Documented by: Dextrose (Dextrose 50%-Water 25 Gm/50 Ml Disp.Syrin) 0 gm IV X1 PRN; Protocol PRN Reason: Hypoglycemia Enoxaparin Sodium (Enoxaparin 40 Mg/0.4 Ml Syringe) 40 mg SC DAILY [facility] Last Admin: 02/26/21 09:27 Dose: 40 mg Documented by: Glucagon (Glucagon 1 Mg/Ml Syringe) 1 mg IM .X1 PRN PRN Reason: Hypoglycemia Hydralazine HCl (Hydralazine 20 Mg/Ml Vial) 10 mg IV Q4H PRN PRN PRN Reason: BLOOD PRESSURE Last Admin: 02/25/21 10:32 Dose: 10 mg Documented by: Sodium Chloride () 1,000 mls @ 75 mls/hr IV .[id number] [facility] Last Admin: 02/26/21 03:55 Dose: 75 mls/hr Documented by: Insulin Glargine (Insulin Glargine 100 Units/Ml Pen) 23 units SC BREAKFAST [facility] Last Admin: 02/26/21 07:45 Dose: Not Given Documented by: Insulin Human Lispro (Insulin Lispro 100 Unit/Ml Insuln.Pen) 0 unit SC ACHS [facility]; Protocol Last Admin: 02/26/21 10:38 Dose: Not Given Documented by: Metoprolol Tartrate (Metoprolol Tartrate 100 Mg Tablet) 100 mg PO QHS [facility] Last Admin: 02/25/21 22:30 Dose: Not Given Documented by: Metoprolol Tartrate (Metoprolol Tartrate 50 Mg Tablet) 50 mg PO BREAKFAST [facility] Last Admin: 02/26/21 10:43 Dose: 50 mg Documented by: Ondansetron HCl (Ondansetron 4 Mg/2 Ml Vial) 4 mg IV Q8H PRN PRN PRN Reason: NAUSEA/VOMITING Sodium Chloride (0.9% Saline Lock 10 Ml Syringe) 10 - 40 ml IV UD PRN PRN Reason: SALINE FLUSH Last Admin: 02/25/21 11:42 Dose: 10 ml Documented by: Addendum: Dr. Summers I personally examined the patient and reviewed the chart. I agree with the above. 86-year-old female presents from home secondary to confusion. She has been repeating herself over and over again on her exam yesterday and today was unaware that she had already had an MRI she was refusing all other tests. She did end up having her MRI yesterday and this was negative for stroke. She did have a UA which did not indicate a UTI. Her BUN is improving but she still seems to be a little bit confused. Her potassium has increased from 2.9 to 3.4 and her CBC was unremarkable yesterday. I would like to get an EEG however she is adamant about not having anything done to her and there I feel that this will likely not be a successful attempt. We will have [facility] evaluate her. 02/26/2021: Doing much better today, less confused and less argumentative. She is alert and oriented x3 and feels much better today. She was able to ambulate around 15 feet with a wheeled walker with very minimal assist for most of everything requires contact-guard for assistance, family is not interested in sending her to a intermediate facility therefore she will be sent home. I discussed with him to follow-up with her primary care doctor to evaluate her medication list for any medications that could have interacted with the Zoloft to lead to increased sedation. There was mention of her taking a sleeping pill, however he was extremely difficult to pinpoint when they were taking this as her would say 1 thing and she would disagree and say something different. I did discuss with him that she should not take any sedating medications for sleep as that could have led to her delirium. [facility] psych did meet with her and felt that there is no concerns at this time, all of her vital signs and lab work are unremarkable and MRI was negative for stroke therefore this episode was likely medication related. I discussed the plan for discharge today with her and her and they both expressed understanding of the risks and benefits of discharge today and would like to take her home today. OBSV E&M: [id number] Observation care discharge
[2021-02-26 13:16] LABS: Bedside Glucose 234 mg/dL (70-110)
--- NOTE | 2021-02-26 15:52 | CASEMGMT ---
SHANNON BAKER called and left message with ramesh Escobar to discuss HHC. SHANNON BAKER received call back from ramesh Escobar stating that Dr. Dhaliwal's office arranged for home therapy and they were coming from the hospital to start on Tuesday. SHANNON BAKER call [facility] and confirmed that HHC is setup for PT/OT starting Tuesday.
[2021-02-26 16:40] LABS: Bedside Glucose 145 mg/dL (70-110)
--- NOTE | 2021-02-27 13:28 | CASEMGMT ---
Addendum entered by Emily Shine 02/27/21 15:50: Call from Shirley at [facility] and they can now do start of care tomorrow but when they called daughter to notify her, she stated they sent pt back to [facility] ED already. Per [facility], if pt is discharged home from ED, they could still do start of care tomorrow, if they are aware. Shyanne, ED SW updated, on all at this time, voices understanding. Cherry ORTEGA CM Original Note: Pt's daughter left a message with Oz KELLEY stating that pt does not want to eat/drink at home and does not want to take meds. Call to Shirley at [facility] to see when pt start of care and to update her that order had been placed for SN, PT/OT by Tacho ORTEGA CM yesterday and she states that Dr. Dhaliwal had only ordered PT previously. Advised Shirley that SN, PT/OT would probably be better, voices understanding. Shirley states that initially pt was going to be seen on Tuesday but she will try to see if they are able to get in any sooner. CM to follow for updated SOC. Cherry ORTEGA CM
== END 2021-02-26 13:03 | disposition home health service (06) ==
LOC: ED 15:13 → PCU 16:07
PROVIDERS: Admitting Provider Nurse Practitioner Family; Emergency Provider Emergency Medicine; PCP Preventive Medicine Occupational Medicine; Visit Provider Family Medicine
DX: E87.6 Hypokalemia (principal); G93.40 Encephalopathy, unspecified; E11.9 Type 2 diabetes mellitus without complications; I10 Essential (primary) hypertension; E87.1 Hypo-osmolality and hyponatremia; M46.1 Sacroiliitis, not elsewhere classified; I48.0 Paroxysmal atrial fibrillation; E43 Unspecified severe protein-calorie malnutrition; M21.371 Foot drop, right foot; M54.10 Radiculopathy, site unspecified; F03.90 Unspecified dementia, unspecified severity, without behavioral disturbance, psychotic disturbance, mood disturbance, and anxiety; Z79.899 Other long term (current) drug therapy; Z79.4 Long term (current) use of insulin; Z68.20 Body mass index [BMI] 20.0-20.9, adult
CPT/HCPCS: 36415; 70450; 70544; 70547; 70551; 71045; 80048; 80061; 81001; 82962; 83735; 84443; 84484; 85025; 85027; 85610; 85730; 92526; 92610; 93005; 94762; 96361; 96365; 96366; 96372; 96375; 96376; 97110; 97162; 97166; 97530; 97535; 97802; 99218; 99285; J7030; P9612; A4216; G0378

== ENCOUNTER 2021-02-27 14:46 | Observation (INO) | payer MEDICARE, SELFPAY ==
[2021-02-25 10:29] VITALS: BMI 20.6
[2021-02-27] VITALS (8 sets, daily range): BP systolic 135–185; BP diastolic 62–78; PULSE 71–97; RESP 16–19; TEMP 36.1–36.7; O2SAT 95–98; BMI 18.1; BMI 16.3
--- NOTE | 2021-02-27 15:05 | CT_ITS ---
STUDY: CT BRAIN WITHOUT CONTRAST REASON FOR EXAM: Female, 86 years old. confusion RADIATION DOSAGE (If Supplied By Facility): CTDIvol = ( 44.99 ) mGy, DLP = ( 796.11 ) mGycm TECHNIQUE: Transaxial CT imaging of the brain was performed without administration of intravenous contrast material. Individualized dose optimization techniques were used for this CT. COMPARISON: 02/24/2021 FINDINGS: Normal soft tissue structures. Normal calvarium. There is mild cerebral atrophy with widening of the extra-axial spaces and ventricular dilatation. There are areas of decreased attenuation within the white matter tracts of the supratentorial brain, consistent with microvascular disease changes. There are bilateral lacunar infarcts of the basal ganglia and thalami. Normal brainstem. There is mild cerebellar atrophy. There is no intracranial hemorrhage. There are no findings of an acute ischemic infarction. Normal visualized paranasal sinuses. CT/Brain/Head without Contrast IMPRESSION: Chronic involutional changes of the brain. No change or acute abnormality since the exam of 3 days prior. Electronically Signed: Gerald Christian MD at 16:04 EDT , Service support ,
--- NOTE | 2021-02-27 15:05 | EKG12_ITS ---
Test Reason : Blood Pressure : / mmHG Vent. Rate : 081 BPM Atrial Rate : 081 BPM P-R Int : 114 ms QRS Dur : 082 ms QT Int : 372 ms P-R-T Axes : 064 -43 074 degrees QTc Int : 432 ms Sinus rhythm with Premature atrial complexes Left axis deviation Left ventricular hypertrophy with repolarization abnormality Abnormal ECG Confirmed by STONEY OLIVAS, BALAJI ([id number]), assistant editor ROMERO SANTACRUZ ([id number]) on 03/04/2021 7:41:37 AM Referred By: XIMENA Confirmed By:BALAJI LUA MD
[2021-02-27 15:11] LABS: Bedside Glucose 138 mg/dL (70-110)
--- NOTE | 2021-02-27 15:22 | ED.VIS.GEN ---
History of Present Illness Chief Complaint: Weakness Informant: Family Narrative: 86-year-old female presents with her daughter with concern for weakness. Patient was discharged from the hospital yesterday after an entire work-up for similar symptoms. Patient recently has had a decline mentally and was having pain in her back approximately 2 weeks ago. Was admitted to the hospital and then placed in a nursing facility. Became delirious in the nursing facility and family took her home. States that they had to bring her back here 3 days ago because she became confused and weak. Patient had extensive work-up in the hospital and was discharged yesterday after significant improvement. Daughter states that she is reverted back to repeating herself and not taking care of her activities of daily living. Past Medical History - Allergies and Home Meds Allergies/Adverse Reactions: Allergies No Known Allergies Allergy (Verified 02/24/21 14:12) Primary Care Physician: Antonino Rosario DO [Primary Care Provider] - Prior records reviewed: Yes Past Medical History: - - HTN, DM, PAF Surgical History: - - Left total hip, right partial hip Lives: Spouse/ Significant Other, With Family Smoking Status: Never smoker Alcohol: None Drugs: None - Family History Paternal Family History: Reports: - - Denies known paternal medical history including cardiac history. Maternal Family History: Reports: Heart Disease Review of Systems ROS: Unable to Obtain - Confusion Physical Exam Vital Signs/Narrative: Vital Signs Temp Pulse Resp BP Pulse Ox 02/27/21 14:47 98.1 F 81 19 H 167/78 H 98 Inital Vital Signs reviewed: Yes General: Well nourished, Well developed, No Acute Distress Head: Normocephalic, Atraumatic Eyes: Perrl, EOMI ENT: No rhinorrhea, - - Dry, cracked lips. Neck: Supple, Nontender Cardiovascular: Regular rate, Regular rhythm, No murmurs Respiratory: No distress, CTA bilaterally, Chest nontender Abdomen: Soft, Nontender, Nondistended, Normal bowel sounds Back: Nontender, Normal Inspection Extremities: Nontender, No edema Skin: Normal color, No rash Neurological: Alert, Cranial nerves II-XII grossly intact, Normal Strength, Normal Sensation, - - Repeated that wont work. no focal deficit Psychological: Normal affect, Normal Mood Diagnostic/Tx/Re-eval Chest X-Ray - ED: 1 View, Read by ED Physician, Read by Radiologist, Normal Clinical Impression(s) from Imaging Studies Brain CT 02/27/21 15:05 IMPRESSION: Chronic involutional changes of the brain. No change or acute abnormality since the exam of 3 days prior. Electronically Signed: Gerald Christian MD at 16:04 EDT , Service support , Chest X-Ray 02/27/21 15:32 IMPRESSION: No definite acute or significant abnormality seen. Electronically Signed: Gerald Christian MD at 16:10 EDT , Service support , Laboratory Data 02/27/21 02/27/21 02/27/21 14:55 15:10 15:10 WBC 8.0 RBC 4.75 Hgb 14.1 Hct 43.4 MCV 91.4 MCH 29.7 MCHC 32.5 RDW Std Deviation 56.2 H RDW Coeff of Viraj 16.6 H Plt Count 148 L MPV 10.5 Immature Gran % (Auto) 2.200 H Neut % (Auto) 72.0 H Lymph % (Auto) 15.3 L [place] % (Auto) 8.4 Eos % (Auto) 1.5 Baso % (Auto) 0.6 Absolute Neuts (auto) 5.8 Absolute Lymphs (auto) 1.23 Nucleated RBC % 0 Differential Comment SCANNED Crenated Cell RARE Sodium 133 L Potassium 3.9 Chloride 100 Carbon Dioxide 26.0 Anion Gap 7 BUN 19 H Creatinine 0.58 Estim Creat Clear Calc 31.04 Est GFR (MDRD) Af Amer 128 Est GFR (MDRD) Non-Af 105 BUN/Creatinine Ratio 32.9 H Glucose 120 H Lactic Acid Calcium 9.4 Total Bilirubin 0.70 AST 41 H ALT 50 Alkaline Phosphatase 60 Troponin I < 0.015 Total Protein 7.1 Albumin 3.2 Globulin 3.9 Albumin/Globulin Ratio 0.8 L Urine Color Urine Clarity Urine pH Ur Specific [place] Urine Protein Urine Glucose (UA) Urine Ketones Urine Occult Blood Urine Nitrite Urine Bilirubin Urine Urobilinogen Ur Leukocyte Esterase Urine RBC Urine WBC Ur Squamous Epith Cells Urine Bacteria Urine Mucus POC Glucose 138 H 02/27/21 02/27/21 15:45 15:50 WBC RBC Hgb Hct MCV MCH MCHC RDW Std Deviation RDW Coeff of Viraj Plt Count MPV Immature Gran % (Auto) Neut % (Auto) Lymph % (Auto) [place] % (Auto) Eos % (Auto) Baso % (Auto) Absolute Neuts (auto) Absolute Lymphs (auto) Nucleated RBC % Differential Comment Crenated Cell Sodium Potassium Chloride Carbon Dioxide Anion Gap BUN Creatinine Estim Creat Clear Calc Est GFR (MDRD) Af Amer Est GFR (MDRD) Non-Af BUN/Creatinine Ratio Glucose Lactic Acid 1.2 Calcium Total Bilirubin AST ALT Alkaline Phosphatase Troponin I Total Protein Albumin Globulin Albumin/Globulin Ratio Urine Color Yellow Urine Clarity Sl. Cloudy Urine pH 6.0 Ur Specific [place] 1.015 Urine Protein 30 H Urine Glucose (UA) 100 H Urine Ketones 50 H Urine Occult Blood 10 H Urine Nitrite Negative Urine Bilirubin Negative Urine Urobilinogen Normal Ur Leukocyte Esterase Negative Urine RBC 0-5 SEEN Urine WBC 0 SEEN Ur Squamous Epith Cells 0-5 SEEN Urine Bacteria 0 SEEN Urine Mucus 0 SEEN POC Glucose - Rhythm Strip Rhythm Strip: Sinus Rhythm Ectopy: None - EKG Initial EKG Interpretation: Sinus Rhythm - Sinus rhythm at 81 bpm. UT interval of 114 ms. QTC of 432 ms. PACs. Left axis deviation. LVH. No evidence of acute ischemia. - Medical Decision Making Patient appears well and nontoxic. She is repeating the words that wont help over and over again. No focal deficit. CT brain negative. Lab work within normal limits. No urinary tract infection. Patient was given fluid bolus for some mild ketonuria. Extensive discussion was had with the patient's daughter by both myself as well as social work. There is home health care that is coming to the home tomorrow. I did offer admission with detention placement. They wish to take her home and see how home health care goes at this time. Asked to return anytime for reevaluation. Daughter agreeable and patient discharged home in stable condition. Impression: 1. Confusion 2. Weakness ED Disposition - Plan for ED Patient: Disposition: Home or Assisted Living Instructions: ED Weakness (Uncertain Cause) Referrals: Antonino Rosario DO [Primary Care Provider] - 2 Days
[2021-02-27 15:24] LABS: Absolute Lymphocyte Count 1.23 X10^3/uL (0.83-4.51); Absolute Neutrophil Count 5.8 X10^3/uL (2.0-7.7); Basophil# 0.05 X10^3/uL; Basophil% 0.6 % (0-1); Eosinophil# 0.12 X10^3/uL; Eosinophils% 1.5 % (0-5); Hematocrit 43.4 % (37-47); Hemoglobin 14.1 g/dL (12.0-15.0); Lymphocyte # 1.23 X10^3/ul (4.0); Lymphocyte % 15.3 % (19-41); Mean Corp Hgb Conc 32.5 g/dL (32-36); Mean Corpuscular Hgb 29.7 pg (27.0-32.0); Mean Corpuscular Volume 91.4 fL (81-99); Mean Platelet Vol. 10.5 fl (6.2-12.0); Monocyte# 0.67 X10^3/uL; Monocyte% 8.4 % (0-10); NRBC Flagged by Analyzer 0 % (0-5); Neutrophil # 5.77 X10^3/uL (2.7-7.7); POSITIVE COUNT YES; Platelet Count 148 K/mm3 (150-450); RBC Distribution Width CV 16.6 % (11.6-14.6); RBC Distribution Width SD 56.2 fl (35.1-43.9); Red Blood Count 4.75 M/mm3 (4.2-5.4)
[2021-02-27 15:32] LABS: Differential Indicated SCAN CRITERIA MET
[2021-02-27] MEDS: 0.9% Normal Saline 1,000 ML 1000 ML IV (15:32)
--- NOTE | 2021-02-27 15:32 | RAD_ITS ---
STUDY: X-RAY CHEST REASON FOR EXAM: Female, 86 years old. confusion TECHNIQUE: Single AP portable view of the chest. COMPARISON: 02/24/2021. FINDINGS: The lungs are clear and expanded. There is no demonstrated pleural abnormality. Normal size heart. Normal mediastinum and maciej. Normal visualized pulmonary arteries. There is atherosclerotic calcification of the aortic arch with tortuosity. Normal visualized thoracic spine. Normal visualized ribs, clavicles, and shoulders. There is no demonstrated abnormality of the visualized soft tissue structures of the upper abdomen. RAD/Chest 1 View (Portable) IMPRESSION: No definite acute or significant abnormality seen. Electronically Signed: Gerald Christian MD at 16:10 EDT , Service support ,
[2021-02-27 15:44] LABS: Crenated RBC RARE; Differential Comment SCANNED
[2021-02-27 15:52] LABS: ALB/GLOB Ratio 0.8 RATIO (0.9-2.4); AST(SGOT) 41 U/L (15-37); Alanine Aminotransfer ALT/SGPT 50 U/L (13-56); Albumin, Serum 3.2 g/dL (3.2-5.0); Alkaline Phosphatase 60 U/L (45-117); Anion Gap 7 (5-15); BUN 19 mg/dL (7-18); BUN/Creat Ratio 32.9 RATIO (10-20); Calcium,Total 9.4 mg/dL (8.5-10.1); Chloride 100 mmol/L (98-107); Creatinine, Serum 0.58 mg/dL (0.55-1.02); EST Glomerular Filtration Rate 105 mL/min (>60); Est Glom Filt Rate - Afr Amer 128 mL/min (>60); Estimated Creatinine Clearance 31.04 ml/min; Globulin 3.9 g/dL (2.2-4.2); Glucose 120 mg/dL (74-106); Potassium 3.9 mmol/L (3.5-5.1); Protein, Total 7.1 g/dL (6.4-8.2); Sodium Level 133 mmol/L (136-145)
[2021-02-27 16:00] LABS: Bacteria 0 SEEN /hpf (None Seen); Mucous, Urine 0 SEEN /hpf (<or=2+); White Blood Cells 0 SEEN /hpf (0-5)
[2021-02-27 16:09] LABS: Color, Urine Yellow (Yellow); Glucose, Dipstick 100 mg/dl (Normal); Ketone-Dipstick 50 mg/dl (Negative); Leukocyte Esterase-Dipstick Negative /ul (Negative); Nitrite-Dipstick Negative (Negative); Occult Blood-Urine 10 /ul (Negative); Protein-Dipstick 30 mg/dl (Negative); Specific Gravity, Urine 1.015 (1.002-1.030); Urine Bilirubin Dipstick Negative (Negative); Urine Clarity Sl. Cloudy (Clear); Urine Urobilinogen Normal (Normal)
[2021-02-27 16:18] LABS: Red Blood Cells-Urine 0-5 SEEN /hpf (0-5); Squamous Epithelial Cells - UA 0-5 SEEN /hpf (5-10)
[2021-02-27 16:24] LABS: Lactic Acid 1.2 mmol/L (0.4-1.9)
--- NOTE | 2021-02-27 17:28 | CM.ED ---
SOCIAL WORK Referral Source: Dr. Alexander, [facility] Reason for Consult: Discharge Planning Received call from [facility] and informed start of care to begin tomorrow if patient discharges home. [facility] requesting call back with plan of care. Discussed case with Dr. Alexander and patient's daughter. Daughter reports she and her father can't make up our minds regarding best care for patient. Daughter states patient was just in [facility] and family took her out. Daughter states today patient would not take her medications, eat or drink. Daughter called her father/patient's with this worker in room. wishes for patient to discharge home with plan for home health start of care tomorrow. en route to transport patient home. Staff updated. Call to [facility] to update patient being discharged from ER. Plan: Home with [facility] Sailaja Burk MSW, STITCH BONDING MACHINE TENDER
--- NOTE | 2021-02-27 19:00 | CM.ED ---
SOCIAL WORK Received call from [facility] Home Health nurse. Informed family now wanting long-term placement. Met with daughter in room. Patient remains asleep. Daughter stating wanting patient admitted for long-term placement and wishes to review facilities. List provided. Dr. Catherine parker. Sailaja Burk, MANAGER SOCIAL, WIND TURBINE ENGINEER
--- NOTE | 2021-02-27 19:24 | HP.PCM_ITS ---
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 She reported that her symptoms started about 3 days ago although she was at a hospital on 01/28/2021 and discharged on 02/26/2021, a day before this new presentation. At baseline patient uses a brace at her right foot. Patient is a poor historian so majority of history was taken for emergent department doctor. Per emergent department doctor patient has not been eating and she has been confused. Patient admits that she has had some confusion. As stated above patient was admitted on 02/24/2021 and discharged on 02/26/2021. On that admission she was treated for acute encephalopathy of unclear etiology. Past Medical History Past Medical History (Chronic Problems): Chronic Problems (Last Reviewed 02/28/21 @ 02:[address] Yunior Sorto MD) Arthritis of left sacroiliac joint (Chronic) Hypertension (Chronic) Diabetes 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 (Chronic) Chronic hyponatremia (Chronic) Medical History: Medical History (Last Reviewed 02/28/21 @ 02:[address] Yunior Sorto MD) Bloody stool K92.1 Diabetes E11.9 Hemorrhoids K64.9 HTN (hypertension) I10 Allergies No Known Allergies Allergy (Verified 02/24/21 14:12) Home Medications: Ambulatory Orders Medication Instructions Recorded amlodipine 10 mg tablet 10 mg PO DAILY 12/01/19 ascorbic acid (vitamin C) 1,000 mg 1,000 mg PO DAILY 12/01/19 tablet biotin 10,000 mcg capsule 1 cap PO DAILY 12/01/19 cholecalciferol (vitamin D3) 125 1 tab PO DAILY 12/01/19 mcg (5,000 unit) disintegrating tablet cinnamon bark 500 mg capsule 500 mg PO DAILY 12/01/19 coenzyme Q10 100 mg capsule 100 mg PO DAILY 12/01/19 garlic extract 600 mg tablet 600 mg PO DAILY 12/01/19 marine (Zingiber officinalis) 550 550 mg PO DAILY 12/01/19 mg capsule lutein 40 mg capsule 40 mg PO DAILY 12/01/19 magnesium 250 mg tablet 250 mg PO DAILY 12/01/19 metformin 500 mg tablet,extended 500 mg PO TIDCM 12/01/19 release 24 hr metoprolol tartrate 50 mg tablet 100 mg PO QHS 12/01/19 niacin 500 mg tablet 1,000 mg PO DAILY 12/01/19 omega-3 acid ethyl esters 1 gram 2 cap PO BID 12/01/19 capsule red yeast rice 600 mg capsule 600 mg PO BID 12/01/19 turmeric 400 mg capsule 400 mg PO BID 12/01/19 Insulin Glargine,Hum.rec.anlog 23 unit SQ BREAKFAST 07/04/20 [Mick Ugalde] Metoprolol Tartrate 50 mg PO BREAKFAST 07/04/20 Zinc Gluconate [Zinc] 100 mg PO DAILY 07/04/20 Acetaminophen [Tylenol Tablet] 650 mg PO Q6H PRN PRN tab 02/09/21 Ensure Enlive 120 ml PO 4X/DAY liquid 02/09/21 Aspirin 81 mg PO DAILY #30 tab.chew 02/26/21 Atorvastatin Calcium [Lipitor] 40 mg PO BID #60 tablet 02/26/21 Surgical History: Surgical History (Last Reviewed 02/28/21 @ 02:[address] Yunior Sorto MD) History of hip replacement Z96.649 Surgical History: - - Left total hip, right partial hip Psychiatric History: No pertinent psych hx STATISTICAL PROGRAMMER History: No pertinent STATISTICAL PROGRAMMER history Lives: Spouse/ Significant Other, With Family Smoking Status: Never smoker Alcohol: None Drugs: None - *Family History Maternal History Items: Heart Disease Paternal History Items: Cancer - Leukemia, - Review of Systems Constitutional: Reports: Anorexia, Weakness. Denies: Chills, Fever, Weight Change HEENT: Denies: Head Aches, Sinus Congestion, Sinus Drainage Cardiovascular: Denies: Chest Pain, Palpitations Respiratory: Denies: Cough, Shortness of breath at rest, Sputum production Gastrointestinal: Denies: Abdominal Pain, Nausea, Vomiting Genitourinary: Denies: Dysuria Musculoskeletal: Denies: Joint Pain, Joint Tenderness Skin: Denies: Rash, Wounds Neurological: Denies: Numbness, Tingling, Focal weakness Psychiatric: Denies: Anxiety, Depression, Homicidal Ideations, Suicidal Ideations Hematologic/ Lymphatic: Denies: Easy Bruising, Easy Bleeding VTE Information - Inpt Only VTE Present on Admission: No VTE Mechan Device Prophylaxis: None VTE Pharm Prophylaxis ordered?: Yes Patient Problems: Active and Suspected Problems (Last Reviewed 02/28/21 @ 02:[address] Yunior Sorto MD) Debility (Acute) Acute encephalopathy (Acute) - Physical Exam Vitals/I&O's: Vital Signs Temp Pulse Resp BP Pulse Ox 98.1 F 80 18 135/75 H 95 02/27/21 14:47 02/27/21 19:15 02/27/21 19:15 02/27/21 19:15 02/27/21 19:15 Oxygen Delivery Method Room Air Weight: 47.8 kg Body Mass Index (BMI) 18.1 Finger Stick Blood Glucose 212 Intake and Output for Last 24 Hours 02/25/21 02/26/21 02/27/21 23:59 23:59 23:59 Intake Total 1000 / 1000 Balance 1000 / 1000 General: Alert, Oriented x3, Cooperative HEENT: Atraumatic, PERRLA, EOMI, Normocephalic Neck: Supple, No JVD, Negative Carotid Bruits Lungs: Clear to auscultation, Normal air movement Cardiovascular: Regular rate, Normal S1, Normal S2, No murmurs Abdomen: Bowel Sounds Present, Soft, Non Tender Extremities: No edema, Capillary Refill Less than 3 Seconds Skin: No rashes, No breakdown, - - Erythema of coccyx Musculoskeletal: No Tenderness to Palpation of Joints or Extremities, Cachexia Neurological: Cranial nerves II-XII grossly intact, - - Strength in right leg 4 out of 5. Strength in all other extremities 5 out of 5 Psych/Mental Status: Normal Affect, Appropriate Microbiology Past 72 Hours 02/27/21 15:20 Mucosa - Nose SARS-CoV-2 Antigen (Rapid) - Final Laboratory Results 02/27/21 14:55: POC Glucose 138 H 02/27/21 15:10: WBC 8.0, RBC 4.75, Hgb 14.1, Hct 43.4, MCV 91.4, MCH 29.7, MCHC 32.5, RDW Std Deviation 56.2 H, RDW Coeff of Viraj 16.6 H, Plt Count 148 L, MPV 10.5, Immature Gran % (Auto) 2.200 H, Neut % (Auto) 72.0 H, Lymph % (Auto) 15.3 L, [place] % (Auto) 8.4, Eos % (Auto) 1.5, Baso % (Auto) 0.6, Absolute Neuts (auto) 5.8, Absolute Lymphs (auto) 1.23, Nucleated RBC % 0, Differential Comment SCANNED, Crenated Cell RARE 02/27/21 15:10: Sodium 133 L, Potassium 3.9, Chloride 100, Carbon Dioxide 26.0, Anion Gap 7, BUN 19 H, Creatinine 0.58, Estim Creat Clear Calc 31.04, Est GFR (MDRD) Af Amer 128, Est GFR (MDRD) Non-Af 105, BUN/Creatinine Ratio 32.9 H, Glucose 120 H, Calcium 9.4, Total Bilirubin 0.70, AST 41 H, ALT 50, Alkaline Phosphatase 60, Troponin I < 0.015, Total Protein 7.1, Albumin 3.2, Globulin 3.9, Albumin/Globulin Ratio 0.8 L 02/27/21 15:45: Lactic Acid 1.2 02/27/21 15:50: Urine Color Yellow, Urine Clarity Sl. Cloudy, Urine pH 6.0, Ur Specific [place] 1.015, Urine Protein 30 H, Urine Glucose (UA) 100 H, Urine Ketones 50 H, Urine Occult Blood 10 H, Urine Nitrite Negative, Urine Bilirubin Negative, Urine Urobilinogen Normal, Ur Leukocyte Esterase Negative, Urine RBC 0-5 SEEN, Urine WBC 0 SEEN, Ur Squamous Epith Cells 0-5 SEEN, Urine Bacteria 0 SEEN, Urine Mucus 0 SEEN Assessment/Plan All Active Problems (Last Reviewed 02/28/21 @ 02:[address] Yunior Sorto MD) Debility (Acute) Acute encephalopathy (Acute) The patient is a 86 year old F with a significant history of hypertension; hyperlipidemia and diabetes mellitus who presents to the emergency department with inability to walk; confusion and anorexia. Debility PT and OT to work with patient. Case management consult. Acute encephalopathy of unclear etiology. Cannot rule out onset of dementia Clinical monitoring. Case management consult for possible discharge to prison so she cannot receive care if family unable to manage. IV fluids to prevent dehydration. Hyponatremia Mild. Sodium level of 133. Chronic IV hydration ordered Trend BMP. Erythema of coccyx Blanches with pressure Calmoseptine cream ordered. Hypertension Blood pressure is not within goal Metoprolol and amlodipine continued. Trend blood pressure and adjust blood pressure medications. CAD and Lipitor continued for CAD risk factors. Diabetes mellitus Patient with mild hyperglycemia on presentation Home Metformin continued as basically physical therapy and Occupational Therapy will work with patient; and possible placement discussed. Adjust basal insulin Accu-Chek QA [facility] with correction scale insulin ordered. Severe protein calorie malnutrition BMI of 16.3 Ensure Enlive continued Vitamin D deficiency Vitamin D supplementation continued DVT prophylaxis Subcutaneous Lovenox OBSV E&M: [id number] Initial observation care L2
[2021-02-27] MEDS: 0.9% Normal Saline 1,000 ML 75 ML IV (21:06)
[2021-02-27] MEDS: 0.9% Saline Lock 10 ML Syringe IV (21:06)
[2021-02-27] MEDS: Metoprolol Tartrate 50 MG Tablet PO (22:59)
[2021-02-27] MEDS: Atorvastatin Calcium 40 MG Tablet PO (22:59)
[2021-02-27] MEDS: Metoprolol Tartrate 100 MG Tablet PO (23:01)
[2021-02-27 23:10] LABS: Bedside Glucose 114 mg/dL (70-110)
[2021-02-28] MEDS: Menthol/Lanolin/Calamine/Znox 113 GM Tube 1 APPLIC TOPICAL ×3 (01:06→21:49)
[2021-02-28 03:33] VITALS: BP 174/74; PULSE 81; RESP 18; TEMP 36.3; O2SAT 99
[2021-02-28] MEDS: Insulin Lispro 100 UNIT/ML INSULN.PEN SC (06:56)
[2021-02-28 07:06] LABS: Bedside Glucose 152 mg/dL (70-110)
[2021-02-28 07:20] LABS: Anion Gap 10 (5-15); BUN 12 mg/dL (7-18); BUN/Creat Ratio 27.9 RATIO (10-20); Calcium,Total 9.3 mg/dL (8.5-10.1); Chloride 98 mmol/L (98-107); Creatinine, Serum 0.43 mg/dL (0.55-1.02); EST Glomerular Filtration Rate 148 mL/min (>60); Est Glom Filt Rate - Afr Amer 179 mL/min (>60); Estimated Creatinine Clearance 28.05 ml/min; Glucose 138 mg/dL (74-106); Potassium 3.1 mmol/L (3.5-5.1); Sodium Level 136 mmol/L (136-145)
[2021-02-28 08:15] VITALS: BP 157/83; PULSE 90; RESP 18; TEMP 37.2; O2SAT 97
[2021-02-28] MEDS: Magnesium Chloride 64 MG Delay Rel.Tablet PO (08:21)
[2021-02-28] MEDS: 0.9% Normal Saline 1,000 ML 75 ML IV ×2 (10:20→22:06)
[2021-02-28] MEDS: Enoxaparin 40 MG/0.4 ML Syringe SC (10:22)
--- NOTE | 2021-02-28 10:37 | PCM.NTREPORT ---
Nutrition Therapy Report - History Nutrition Services has been consulted to:: Manage nutrient details of diet order Current diet / nutrition support order:: Regular - Anthropometric Measurements Height:: 5 ft 4 in Weight:: 43.2 kg Body Mass Index (BMI):: 16.3 - Relevant Labs Relevant Labs:: RDW Std Deviation 56.2 fl (35.1-43.9) H 02/27/21 15:10 RDW Coeff of Viraj 16.6 % (11.6-14.6) H 02/27/21 15:10 Plt Count 148 K/mm3 (150-450) L 02/27/21 15:10 Immature Gran % (Auto) 2.200 % (0.0-0.9) H 02/27/21 15:10 Neut % (Auto) 72.0 % (47-70) H 02/27/21 15:10 Lymph % (Auto) 15.3 % (19-41) L 02/27/21 15:10 Sodium 133 mmol/L (136-145) L 02/27/21 15:10 Potassium 3.1 mmol/L (3.5-5.1) L 02/28/21 06:24 BUN 19 mg/dL (7-18) H 02/27/21 15:10 Creatinine 0.43 mg/dL (0.55-1.02) L 02/28/21 06:24 BUN/Creatinine Ratio 27.9 RATIO (10-20) H 02/28/21 06:24 Glucose 138 mg/dL (74-106) H 02/28/21 06:24 AST 41 U/L (15-37) H 02/27/21 15:10 Albumin/Globulin Ratio 0.8 RATIO (0.9-2.4) L 02/27/21 15:10 - Assessment Food / Nutrition-Related History:: Pt with periods of being nonverbal and confused and then will snap out of it and be alert and oriented. When in pt room, pt did not respond to questions and sat in bed with R pointer finger in the air and did not move it. Did not eat breakfast d/t confusion. Pt passed dysphagia screen. Accepting of ONS per nsg. Per EMR - UBW: 50.349 kg - wt 02/07/21 wt 47 kg indicating 8.1% wt loss x 3 wks. - Nutrition Diagnosis Problem / Etiology / Signs & Symptoms (PES):: Inadequate oral intake r/t impaired cognitive ability / confusion aeb 8.1% wt loss x 3 wks, decreased po intake, and appears to have fat/muscle loss (orbital, temporal, clavicle areas) Evidence of Malnutrition Exists:: Yes Severe PCM:: Acute Illness - Nutrition Intervention Nutrition Prescription:: [id number] joe/day (RMRx1.3+500). 40-50 gm pro/day (1 gm/kg). 1600 ml/day (1 ml/joe) - Food / Nutrient Delivery Interventions Summary of nutrition intervention:: Continue liberal Regular diet ONS w/ medpass. Will add ONS w/ meals for increased nutrition if consumed. Nutrition education provided?: No - MNT Monitoring Further MNT monitoring and evaluation required?: Yes MNT Follow-up in:: 3-5 days - please call RD/LD if questions [phone]
[2021-02-28 10:41] VITALS: BMI 16.3
--- NOTE | 2021-02-28 11:46 | PN_ITS ---
Patient Problems: Active and Suspected Problems (Last Reviewed 02/28/21 @ 02:[address] Yunior Sorto MD) Debility (Acute) Acute encephalopathy (Acute) Subjective: Confused and pointing up at the ceiling. Unable to provide any history. Vitals/I&O's: Vital Signs Temp Pulse Resp BP Pulse Ox 37.2 C 90 18 157/83 H 97 02/28/21 08:15 02/28/21 08:15 02/28/21 08:15 02/28/21 08:15 02/28/21 08:15 Oxygen Delivery Method Room Air Weight: 43.2 kg Body Mass Index (BMI) 16.3 Finger Stick Blood Glucose 212 Intake and Output for Last 24 Hours 02/26/21 02/27/21 02/28/21 23:59 23:59 23:59 Intake Total 1000 / 1000 1692.5 / 1692.5 Output Total 500 / 500 Balance 1000 / 1000 1192.5 / 1192.5 General: - - awake. Does not answer questions. Pointing directly up at the ceiling with right hand. When I try to move the arm, she continues to point straight up. Does not follow commands. Afebrile. HEENT: Atraumatic, Normocephalic, - - tracks eyes when I move her arm. Neck: No Nodes, Thyroid Normal Size and Texture Lungs: Clear to auscultation, Normal air movement, No rhonchi, No wheeze, No rales Cardiovascular: Regular rate, Regular Rhythm, Normal S1, Normal S2 Abdomen: Bowel Sounds Present, Soft, Non Tender, Non-Distended Extremities: No edema, No Calf Tenderness Psych/Mental Status: Normal Affect, Appropriate Microbiology Past 72 Hours 02/27/21 15:20 Mucosa - Nose SARS-CoV-2 Antigen (Rapid) - Final Laboratory Results 02/27/21 14:55: POC Glucose 138 H 02/27/21 15:10: WBC 8.0, RBC 4.75, Hgb 14.1, Hct 43.4, MCV 91.4, MCH 29.7, MCHC 32.5, RDW Std Deviation 56.2 H, RDW Coeff of Viraj 16.6 H, Plt Count 148 L, MPV 10.5, Immature Gran % (Auto) 2.200 H, Neut % (Auto) 72.0 H, Lymph % (Auto) 15.3 L, [place] % (Auto) 8.4, Eos % (Auto) 1.5, Baso % (Auto) 0.6, Absolute Neuts (auto) 5.8, Absolute Lymphs (auto) 1.23, Nucleated RBC % 0, Differential Comment SCANNED, Crenated Cell RARE 02/27/21 15:10: Sodium 133 L, Potassium 3.9, Chloride 100, Carbon Dioxide 26.0, Anion Gap 7, BUN 19 H, Creatinine 0.58, Estim Creat Clear Calc 31.04, Est GFR (MDRD) Af Amer 128, Est GFR (MDRD) Non-Af 105, BUN/Creatinine Ratio 32.9 H, Glucose 120 H, Calcium 9.4, Total Bilirubin 0.70, AST 41 H, ALT 50, Alkaline Phosphatase 60, Troponin I < 0.015, Total Protein 7.1, Albumin 3.2, Globulin 3.9, Albumin/Globulin Ratio 0.8 L 02/27/21 15:45: Lactic Acid 1.2 02/27/21 15:50: Urine Color Yellow, Urine Clarity Sl. Cloudy, Urine pH 6.0, Ur Specific Nogal 1.015, Urine Protein 30 H, Urine Glucose (UA) 100 H, Urine Ketones 50 H, Urine Occult Blood 10 H, Urine Nitrite Negative, Urine Bilirubin Negative, Urine Urobilinogen Normal, Ur Leukocyte Esterase Negative, Urine RBC 0-5 SEEN, Urine WBC 0 SEEN, Ur Squamous Epith Cells 0-5 SEEN, Urine Bacteria 0 SEEN, Urine Mucus 0 SEEN 02/27/21 22:55: POC Glucose 114 H 02/28/21 06:24: Sodium 136, Potassium 3.1 L, Chloride 98, Carbon Dioxide 28.0, Anion Gap 10, BUN 12, Creatinine 0.43 L, Estim Creat Clear Calc 28.05, Est GFR (MDRD) Af Amer 179, Est GFR (MDRD) Non-Af 148, BUN/Creatinine Ratio 27.9 H, Glucose 138 H, Calcium 9.3 02/28/21 06:52: POC Glucose 152 H Current Medications Acetaminophen (Acetaminophen 325 Mg Tablet) 650 mg PO Q6H PRN PRN PRN Reason: Pain Score 1-10/Temp > 100.7 F Amlodipine Besylate (Amlodipine 10 Mg Tablet) 10 mg PO DAILY [facility] Last Admin: 02/28/21 10:21 Dose: Not Given Documented by: Ascorbic Acid (Ascorbic Acid 500 Mg Tablet) 1,000 mg PO DAILY [facility] Last Admin: 02/28/21 10:21 Dose: Not Given Documented by: Aspirin (Aspirin 81 Mg Tab.Chew) 81 mg PO DAILYCM [facility] Last Admin: 02/28/21 08:23 Dose: Not Given Documented by: Atorvastatin Calcium (Atorvastatin Calcium 40 Mg Tablet) 40 mg PO BID [facility] Last Admin: 02/28/21 10:21 Dose: Not Given Documented by: Calamine/Phenol (Menthol/Lanolin/Calamine/Znox 113 Gm Tube) 1 applic TOPICAL BID [facility]; Protocol Last Admin: 02/28/21 10:20 Dose: 1 applic Documented by: Cholecalciferol (Cholecalciferol (Vit D3) 25 Mcg Tablet (1,000 Units)) 25 mcg PO DAILY [facility] Last Admin: 02/28/21 10:21 Dose: Not Given Documented by: Dextrose (Dextrose 50%-Water 25 Gm/50 Ml Disp.Syrin) 0 gm IV X1 PRN; Protocol PRN Reason: Hypoglycemia Enoxaparin Sodium (Enoxaparin 40 Mg/0.4 Ml Syringe) 40 mg SC DAILY [facility] Last Admin: 02/28/21 10:22 Dose: 40 mg Documented by: Glucagon (Glucagon 1 Mg/Ml Syringe) 1 mg IM .X1 PRN PRN Reason: Hypoglycemia Sodium Chloride () 1,000 mls @ 75 mls/hr IV .[id number] [facility] Last Admin: 02/28/21 10:20 Dose: 75 mls/hr Documented by: Sodium Chloride () 250 mls @ 15 mls/hr IV .[id number] PRN PRN Reason: Saline Flush Insulin Glargine (Insulin Glargine 100 Units/Ml Pen) 10 units SC BREAKFAST [facility] Last Admin: 02/28/21 08:24 Dose: Not Given Documented by: Insulin Human Lispro (Insulin Lispro 100 Unit/Ml Insuln.Pen) 0 unit SC ACHS [facility]; Protocol Last Admin: 02/28/21 11:32 Dose: Not Given Documented by: Magnesium Chloride (Magnesium Chloride 64 Mg Delay Rel.Tablet) 64 mg PO DAILYCM [facility] Last Admin: 02/28/21 08:21 Dose: 64 mg Documented by: Metformin HCl (Metformin (Xr) 500 Mg Tablet) 500 mg PO TIDCM [facility] Last Admin: 02/28/21 08:24 Dose: Not Given Documented by: Metoprolol Tartrate (Metoprolol Tartrate 100 Mg Tablet) 100 mg PO QHS [facility] Last Admin: 02/27/21 23:01 Dose: 100 mg Documented by: Metoprolol Tartrate (Metoprolol Tartrate 50 Mg Tablet) 50 mg PO BREAKFAST [facility] Last Admin: 02/27/21 22:59 Dose: 50 mg Documented by: Nutritional Formula (Lactose Free) (Ensure Enlive 120 Ml Liquid) 120 ml PO 4X/DAY [facility] Last Admin: 02/28/21 10:20 Dose: Not Given Documented by: Ondansetron HCl (Ondansetron 4 Mg/2 Ml Vial) 4 mg IV Q8H PRN PRN PRN Reason: NAUSEA/VOMITING Sodium Chloride (0.9% Saline Lock 10 Ml Syringe) 10 - 40 ml IV UD PRN PRN Reason: SALINE FLUSH Last Admin: 02/27/21 21:06 Dose: 10 ml Documented by: Zinc Sulfate (Zinc Sulfate (50mg Elemental) 220 Mg Capsule) 220 mg PO DAILY [facility] Last Admin: 02/28/21 10:21 Dose: Not Given Documented by: STROKE Vital Signs/Narrative: Vital Signs Temp Pulse Resp BP Pulse Ox 02/28/21 08:15 37.2 C 90 18 157/83 H 97 Medical Necessity - Tobacco Use Smoking Status: Never smoker Assessment/Plan All Active Problems (Last Reviewed 02/28/21 @ 02:[address] Yunior Sorto MD) Debility (Acute) Acute encephalopathy (Acute) 1. 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 Nothing to suggest seizure-like activity MRI on 02/24 showed marked atrophy previously, felt to be due to medications (herbal supplements) I suspect that pt has dementia Review of labs shows normal TSH (02/24), UA Review of medications does not show any obvious culprits or meds that could be associated with an idiosyncratic reaction Plan * supportive * hold potentiating meds * check EEG 2. hypokalemia replace monitor 3. DM2 fair control continue glargine, metformin 4. Afib stable continue metoprolol tartrate high-risk for falls, not on anticoagulation 5. VTE prophylaxis: LMWH. 6. Debility: PTOT anticipate SNF upon DC Inpatient E&M: 39278 Subs Hosp L2
[2021-02-28 12:15] LABS: Bedside Glucose 127 mg/dL (70-110)
[2021-02-28 12:54] LABS: Ammonia < 10.0 umol/L (11-32)
--- NOTE | 2021-02-28 13:37 | CASEMGMT ---
Social Work Consult: Alf Facility Referral Source: RN Marlo Laird Met with patient in room. Introduced self and licensed master social worker role. Patient agreeable to speaking with this licensed master social worker. Patient then request to call patient daughter, I need to speak with my daughter. This licensed master social worker assisting patient in calling patient daughterLuz. Patient speaking with Luz and then giving the phone back to this licensed master social worker. Respiratory now in patient room to complete testing. Patient provided verbal permission for this licensed master social worker to speak with Luz. Patient does have a health care power of attorney at law and patient spouseChau is first contact and daughterLuz is second. Patient health care power of attorney at law papers are on patient file. Luz concerned about patient cognition and ability to take care of patient in the community. Patient lives at home with spouse and has not been eating or drinking. [facility] ([facility]) and things are not working at home. Luz reports to have a list of nursing homes in the area but I just don't want to stick her somewhere. Active listening and support provided. Luz reports plan to go over list and to have a facility picked out by Tuesday. Patient spouse then coming to unit to visit patient. Patient spouseChau agreeable to speak with this licensed master social worker. Chau also provided with list of in-network facilities in the area as well as out of net work as per Chau patient was recently in [facility] and we paid for that. Patient with recent skilled stay at [facility] for one week as that is all insurance covered per Chau. Chau to look over list and is aware and open to the option that skilled nursing might be private pay if insurance does not approve again. Chau unsure of choice of first facility and will look over the list and get back to social work. Chau concerned about being able to care for patient in the home. Support provided. Social Work to continue to follow. Hilda LEON, JOSE
--- NOTE | 2021-02-28 13:57 | CASEMGMT ---
RN SAMUEL NOTE: Intro role of CM to pt's and SCOTT form explained re: Observation status for treatment of debility and acute encephalopathy. Explained hospitalization will be paid per insurance policy for Outpatient billing and condition will continue to be evaluated for Inpt necessity. Also let know that [facility] sends paper in the billing packet with their phone number if questions arise. Discussed Pharmacy section of SCOTT form and self administered medication guideline. Pt verbalizes understanding and does not have further questions. Form signed, copy made and placed in chart, and original given to . Fede WHITAKER RN CM
--- NOTE | 2021-02-28 14:13 | TELEMED_ITS ---
SOC Telemed has confirmed receipt of a request for visit. This document confirms receipt of the order initiating the consult. To find the results of the consultation, please view the patient's reports for the scanned Telemed Consult.
[2021-02-28] MEDS: Potassium Chloride 10mEq/100mL 10 MEQ/100 ML IV.SOLN. 100 MEQ IV BOLUS ×4 (14:25→18:03)
[2021-02-28 15:18] VITALS: BP 143/60; PULSE 81; RESP 18; TEMP 36.6; O2SAT 98
[2021-02-28 16:55] LABS: Bedside Glucose 95 mg/dL (70-110)
[2021-02-28] MEDS: metFORMIN (XR) 500 MG Tablet PO (17:14)
[2021-02-28 21:02] VITALS: BP 160/79; PULSE 78; RESP 16; TEMP 37.1; O2SAT 97
[2021-02-28 21:48] VITALS: BP 160/79; PULSE 78
[2021-02-28] MEDS: Atorvastatin Calcium 40 MG Tablet PO (21:48)
[2021-02-28] MEDS: Metoprolol Tartrate 50 MG Tablet PO (21:48)
[2021-02-28 21:55] LABS: Bedside Glucose 88 mg/dL (70-110)
[2021-02-28 22:08] VITALS: BP 160/79; PULSE 78
[2021-02-28] MEDS: Metoprolol Tartrate 100 MG Tablet PO (22:08)
[2021-03-01 04:32] VITALS: BP 162/77; PULSE 81; RESP 16; TEMP 36.9; O2SAT 98
[2021-03-01 05:56] LABS: Anion Gap 8 (5-15); BUN 13 mg/dL (7-18); BUN/Creat Ratio 36.2 RATIO (10-20); Calcium,Total 8.9 mg/dL (8.5-10.1); Chloride 101 mmol/L (98-107); Creatinine, Serum 0.36 mg/dL (0.55-1.02); EST Glomerular Filtration Rate 183 mL/min (>60); Est Glom Filt Rate - Afr Amer 221 mL/min (>60); Estimated Creatinine Clearance 28.05 ml/min; Glucose 124 mg/dL (74-106); Potassium 3.2 mmol/L (3.5-5.1); Sodium Level 137 mmol/L (136-145)
[2021-03-01 06:00] VITALS: BP 112/63; BP 150/76; BP 165/75; PULSE 100; PULSE 82; PULSE 85; RESP 18; TEMP 36.8; O2SAT 97
[2021-03-01 06:33] VITALS: BMI 15.0
[2021-03-01 06:35] LABS: Bedside Glucose 137 mg/dL (70-110)
[2021-03-01 07:58] LABS: Magnesium 1.5 mg/dL (1.6-2.6)
[2021-03-01 07:59] VITALS: BP 114/63; PULSE 83; RESP 18; TEMP 36.7; O2SAT 98
--- NOTE | 2021-03-01 10:38 | PCM.PN.HOSP ---
Patient Problems: Active and Suspected Problems (Last Reviewed 02/28/21 @ 02:[address] Yunior Sorto MD) Debility (Acute) Acute encephalopathy (Acute) Subjective: No longer pointing at the ceiling. Today she feels terrible but does not note specific complaints. Talks about how she was mistreated at [facility]. Tells me know one believes her. I asked what had happened, she said you wouldn't believe me. After two more inquires, she finally said they put something in her food. I asked what was put in her food, she said it was medicine, then poison. I asked how she knew it was poison, she said she heard them saying they put poison in her food because she has good hearing. + Orthostatic hypotension. Vitals/I&O's: Vital Signs Temp Pulse Resp BP Pulse Ox 36.7 C 83 18 114/63 98 03/01/21 07:59 03/01/21 07:59 03/01/21 07:59 03/01/21 07:59 03/01/21 07:59 Oxygen Delivery Method Room Air Weight: 39.9 kg Body Mass Index (BMI) 15.0 Finger Stick Blood Glucose 212 Orthostatic Vital Signs Start: 03/01/21 06:37 Freq: Status: Active Protocol: Activity Type Activity Date Activity User E-Sign Co-Sign Detail Recorded Client Recorded Date Recorded By Document 03/01/21 06:00 CDB [id number] 03/01/21 06:42 CDB 03/01/21 06:00 Orthostatic Vitals Lying -Blood Pressure (90/60-120/80) 165/75 H -Extremity Use Left Arm -Pulse Rate (60-100) 82 Standing -Blood Pressure (90/60-120/80) 112/63 -Extremity Use Left Arm -Pulse Rate (60-100) 100 Sitting -Blood Pressure (90/60-120/80) 150/76 H -Extremity Use Left Arm -Pulse Rate (60-100) 85 Intake and Output for Last 24 Hours 02/27/21 02/28/21 03/01/21 23:59 23:59 23:59 Intake Total 1000 / 1000 3275.0 / 3475.0 200 / 200 Output Total 850 / 1100 1450 / 1450 Balance 1000 / 1000 2425.0 / 2375.0 -1250 / -1250 General: Alert, Oriented x3 HEENT: Atraumatic, Normocephalic Oral: Moist Mucosa, No Gingival or Mucosal Lesions/ Ulcerations Neck: No Nodes, Thyroid Normal Size and Texture Lungs: Clear to auscultation, Normal air movement, No rhonchi, No wheeze, No rales Cardiovascular: Regular rate, Regular Rhythm, Normal S1, Normal S2, No murmurs Abdomen: Bowel Sounds Present, Soft, Non Tender, Non-Distended, No Hepato-splenomegaly Extremities: No edema, No Calf Tenderness Skin: No rashes, No breakdown Musculoskeletal: Cachexia, Muscle Wasting Psych/Mental Status: Appropriate, Flat Affect Microbiology Past 72 Hours 02/27/21 15:20 Mucosa - Nose SARS-CoV-2 Antigen (Rapid) - Final Laboratory Results 02/28/21 11:29: POC Glucose 127 H 02/28/21 12:20: Ammonia < 10.0 L 02/28/21 16:52: POC Glucose 95 02/28/21 21:43: POC Glucose 88 03/01/21 05:14: Sodium 137, Potassium 3.2 L, Chloride 101, Carbon Dioxide 28.0, Anion Gap 8, BUN 13, Creatinine 0.36 L, Estim Creat Clear Calc 28.05, Est GFR (MDRD) Af Amer 221, Est GFR (MDRD) Non-Af 183, BUN/Creatinine Ratio 36.2 H, Glucose 124 H, Calcium 8.9 03/01/21 05:14: Magnesium 1.5 L 03/01/21 06:31: POC Glucose 137 H Current Medications Acetaminophen (Acetaminophen 325 Mg Tablet) 650 mg PO Q6H PRN PRN PRN Reason: Pain Score 1-10/Temp > 100.7 F Amlodipine Besylate (Amlodipine 10 Mg Tablet) 10 mg PO DAILY [facility] Last Admin: 02/28/21 10:21 Dose: Not Given Documented by: Ascorbic Acid (Ascorbic Acid 500 Mg Tablet) 1,000 mg PO DAILY [facility] Last Admin: 02/28/21 10:21 Dose: Not Given Documented by: Aspirin (Aspirin 81 Mg Tab.Chew) 81 mg PO DAILYCM [facility] Last Admin: 03/01/21 07:54 Dose: Not Given Documented by: Atorvastatin Calcium (Atorvastatin Calcium 40 Mg Tablet) 40 mg PO BID [facility] Last Admin: 02/28/21 21:48 Dose: 40 mg Documented by: Calamine/Phenol (Menthol/Lanolin/Calamine/Znox 113 Gm Tube) 1 applic TOPICAL BID [facility]; Protocol Last Admin: 02/28/21 21:49 Dose: 1 applic Documented by: Cholecalciferol (Cholecalciferol (Vit D3) 25 Mcg Tablet (1,000 Units)) 25 mcg PO DAILY [facility] Last Admin: 02/28/21 10:21 Dose: Not Given Documented by: Dextrose (Dextrose 50%-Water 25 Gm/50 Ml Disp.Syrin) 0 gm IV X1 PRN; Protocol PRN Reason: Hypoglycemia Enoxaparin Sodium (Enoxaparin 40 Mg/0.4 Ml Syringe) 40 mg SC DAILY [facility] Last Admin: 02/28/21 10:22 Dose: 40 mg Documented by: Glucagon (Glucagon 1 Mg/Ml Syringe) 1 mg IM .X1 PRN PRN Reason: Hypoglycemia Sodium Chloride () 1,000 mls @ 75 mls/hr IV .[id number] [facility] Last Admin: 02/28/21 22:06 Dose: 75 mls/hr Documented by: Sodium Chloride () 250 mls @ 15 mls/hr IV .[id number] PRN PRN Reason: Saline Flush Insulin Glargine (Insulin Glargine 100 Units/Ml Pen) 10 units SC BREAKFAST [facility] Last Admin: 03/01/21 07:55 Dose: Not Given Documented by: Insulin Human Lispro (Insulin Lispro 100 Unit/Ml Insuln.Pen) 0 unit SC ACHS [facility]; Protocol Last Admin: 03/01/21 06:34 Dose: Not Given Documented by: Magnesium Chloride (Magnesium Chloride 64 Mg Delay Rel.Tablet) 64 mg PO DAILYCM [facility] Last Admin: 03/01/21 07:55 Dose: Not Given Documented by: Metformin HCl (Metformin (Xr) 500 Mg Tablet) 500 mg PO TIDCM [facility] Last Admin: 03/01/21 07:54 Dose: Not Given Documented by: Metoprolol Tartrate (Metoprolol Tartrate 100 Mg Tablet) 100 mg PO QHS [facility] Last Admin: 02/28/21 22:08 Dose: 100 mg Documented by: Metoprolol Tartrate (Metoprolol Tartrate 50 Mg Tablet) 50 mg PO BREAKFAST [facility] Last Admin: 02/28/21 21:48 Dose: 50 mg Documented by: Nutritional Formula (Lactose Free) (Ensure Enlive 120 Ml Liquid) 120 ml PO 4X/DAY [facility] Last Admin: 03/01/21 07:56 Dose: 120 ml Documented by: Ondansetron HCl (Ondansetron 4 Mg/2 Ml Vial) 4 mg IV Q8H PRN PRN PRN Reason: NAUSEA/VOMITING Sodium Chloride (0.9% Saline Lock 10 Ml Syringe) 10 - 40 ml IV UD PRN PRN Reason: SALINE FLUSH Last Admin: 02/27/21 21:06 Dose: 10 ml Documented by: Zinc Sulfate (Zinc Sulfate (50mg Elemental) 220 Mg Capsule) 220 mg PO DAILY [facility] Last Admin: 02/28/21 10:21 Dose: Not Given Documented by: STROKE Vital Signs/Narrative: Vital Signs Temp Pulse Resp BP Pulse Ox 03/01/21 07:59 36.7 C 83 18 114/63 98 Medical Necessity - Tobacco Use Smoking Status: Never smoker Assessment/Plan All Active Problems (Last Reviewed 02/28/21 @ 02:[address] Yunior Sorto MD) Debility (Acute) Acute encephalopathy (Acute) 86 year old female presents with change of mental status. on the , she was nonverbal pointing strait up at the ceiling. EEG was negative for seizure. Today, patient is alert but expressing concern for being poisoned. Plan is for SNF placement. 1. metabolic encephalopathy 02/28: currently pt in a catatonic state. Nothing to suggest seizure-like activity MRI on 02/24 showed marked atrophy previously, felt to be due to medications (herbal supplements) I suspect that pt has dementia particularly with her paranoid delusion (complaints of being poisoned at [facility]) Review of labs shows normal TSH (02/24), UA Review of medications does not show any obvious culprits or meds that could be associated with an idiosyncratic reaction EEG showed no seizure like activity Plan supportive hold potentiating meds follow up with geriatrics or even geriatric psychiatry given delusions and catatonic behavior check for reversible causes of dementia (B12, folate) TSH was 1.05 on 02/24. 2. hypokalemia replace monitor replace hypomag 3. orthostatic hypotension SBP 165 (lying) to 112 standing plan DC amlodipine (which she hasn't received this admission) check AM cortisol and if low, check and ACTH stim test permissive HTN consider midodrine, salt tabs if persists 4. DM2 fair control continue glargine, metformin 5. Afib stable continue metoprolol tartrate high-risk for falls, not on anticoagulation 6. VTE prophylaxis: LMWH. 7. Debility: PTOT anticipate SNF upon DC 8. Severe protein calorie malnutrition regular diet with Ensure Enlive plus magic cup/pudding. Inpatient E&M: 81966 Subs Hosp L2
[2021-03-01] MEDS: Menthol/Lanolin/Calamine/Znox 113 GM Tube 1 APPLIC TOPICAL ×2 (10:42→21:44)
[2021-03-01] MEDS: Enoxaparin 40 MG/0.4 ML Syringe SC (10:42)
[2021-03-01] MEDS: 0.9% Normal Saline 1,000 ML 75 ML IV ×2 (10:52→23:35)
[2021-03-01 12:10] LABS: Bedside Glucose 131 mg/dL (70-110)
[2021-03-01] MEDS: Potassium Chloride 10mEq/100mL 10 MEQ/100 ML IV.SOLN. 100 MEQ IV BOLUS ×2 (13:35→14:35)
[2021-03-01] MEDS: Potassium Chloride 10mEq/100mL 10 MEQ/100 ML IV.SOLN. 75 MEQ IV BOLUS ×2 (16:08→17:22)
[2021-03-01 16:30] VITALS: BP 130/58; PULSE 79; RESP 16; TEMP 36.7; O2SAT 98
[2021-03-01 17:16] LABS: Bedside Glucose 111 mg/dL (70-110)
[2021-03-01 20:31] VITALS: BP 151/65; PULSE 83; RESP 18; TEMP 36.9; O2SAT 94
[2021-03-01 21:50] LABS: Bedside Glucose 101 mg/dL (70-110)
[2021-03-02] VITALS (7 sets, daily range): BP systolic 150–188; BP diastolic 59–89; PULSE 76–99; RESP 14–20; TEMP 36.6–37.3; O2SAT 96–98
[2021-03-02 08:06] LABS: Anion Gap 11 (5-15); BUN 15 mg/dL (7-18); BUN/Creat Ratio 45.3 RATIO (10-20); Calcium,Total 8.6 mg/dL (8.5-10.1); Chloride 102 mmol/L (98-107); Creatinine, Serum 0.33 mg/dL (0.55-1.02); EST Glomerular Filtration Rate 201 mL/min (>60); Est Glom Filt Rate - Afr Amer 243 mL/min (>60); Estimated Creatinine Clearance 25.91 ml/min; Glucose 91 mg/dL (74-106); Potassium 3.3 mmol/L (3.5-5.1); Sodium Level 137 mmol/L (136-145)
[2021-03-02 08:39] LABS: Vitamin B12 > 2000 pg/mL (211-911)
[2021-03-02 10:55] LABS: Bedside Glucose 101 mg/dL (70-110)
[2021-03-02] MEDS: Enoxaparin 40 MG/0.4 ML Syringe SC (11:17)
[2021-03-02] MEDS: Menthol/Lanolin/Calamine/Znox 113 GM Tube 1 APPLIC TOPICAL ×2 (11:18→22:46)
[2021-03-02] MEDS: 0.9% Normal Saline 1,000 ML 75 ML IV (11:46)
[2021-03-02 12:31] LABS: Bedside Glucose 102 mg/dL (70-110)
--- NOTE | 2021-03-02 13:40 | CASEMGMT ---
Addendum entered by Emily Robertson 03/02/21 14:27: ALLIE received call from pt's daughter Luz requesting to meet with this worker and Chau to discuss SNF options. ALLIE informed Luz that [facility] is still only allowing one visitor and since Chau is the deemed visitor this worker is not sure if Luz would be allowed to enter the building. ALLIE informed Luz that Chau should be arriving to [facility] soon and this worker can put Luz on Speaker phone when this worker meets with Chau to discuss discharge plans. Luz states she would like to be on speaker phone during conversation. Luz states pt is going to [facility] at discharge. ALLIE informed Luz that this worker was not made aware pt was going to [facility] TCU and per Maria D with TCU, TCU will not have any beds until Tuesday. ALLIE informed Luz that pt cannot remain at [facility] until a bed opens up at [facility]. ALLIE informed Luz that pt will [facility] Luz states she would prefer for pt to return to [facility] again. Luz states pt was only at [facility] for about a week. ALLIE explained referral process and that pt will need pre-cert again. Chau is present at [facility]. ALLIE met with Chau and introduced self and role at [facility]. SW dialed Luz on phone and Luz on speaker during conversation. ALLIE [facility] Luz and [facility], do not anticipate beds until the end of the week. ALLIE informed Chau that pt cannot stay at [facility] until a bed becomes available on TCU. ALLIE informed Chau that pt will need to go to a different SNF. Chau and Luz agreeable to trying [facility] again. Chau states [facility] would be next closest and asked about [facility]. ALLIE informed Chau that this worker would have to check with [facility] to determine if they accept [facility] Medicare. ALLIE explained referral process and pt would need pre-cert again. Chau and Luz state understanding. ALLIE placed a call to Shaina at [facility] and left message regarding referral. ALLIE faxed referral. ALLIE placed a call to [facility] and spoke with Gudelia in admissions. Gudelia states she is not 100% sure if they take [facility] or not, would need to check pt's policy. ALLIE updated Chau. ALLIE placed a call to Maria D with TCU, confirms no beds until Tuesday. Plan: [facility] pending acceptance and pre-cert. Original Note: Social Work Note ALLIE placed a call to pt's Chau to continue discussion of discharge plans. Chau states he will be back to [facility] in about 15-20 minutes. ALLIE will meet with Chau when he returns to [facility]. Emily Robertson RN WOUND CARE, COLD ROLL PACKER SHEET IRON
--- NOTE | 2021-03-02 15:03 | CASEMGMT ---
Social Work Note SW received call from Shaina at [facility] about referral. ALLIE confirmed with Shaina that pt is wanting to return to [facility]. Shaina state she will need to review referral and speak to medical staffing coordinator but it is likely they will take pt back and she will submit for pre-cert once pt is accepted. Plan: [facility] pending acceptance and pre-cert. Emily Robertson HAND PLUG SHAPER, AIRLINE OPERATIONS AGENT
--- NOTE | 2021-03-02 15:55 | CHAPLAIN ---
Type of Pastoral Visit ___ Initial Visit _x__ Follow-up Visit ___ On-call Visit ___ General Patient Visit ___ Spiritual Assessment ___ Family Conference ___ Bereavement ___ Rapid Response ___ Code Blue ___ Other (describe below) Pastoral Care Referral From ___ Patient _x__ Family ___ Nurse ___ Physician ___ Consumer Sales Representative ___ Underlay Stitcher ___ Other (describe below) Sacrament/Intervention ___ Active listening ___ Anointing ___ Synagogue ___ Bereavement ___ Communion ___ Angela exploration ___ ___ Life review _x__ Prayer ___ Reconciliation ___ Sacrament of Sick _x__ Supportive presence ___ Wedding ___ Other (describe below) Pastoral Comments of patient is at bedside; pt is either sleeping or not responding to her name; had phone up to pt's ear to listen to voice of daughter on phone; no response from pt seen by this operations advisor but spouse indicated pt did say one phrase to daughter and then stopped responding; by report of spouse the patient will be moved to TCU; this operations advisor has followed this pt through her admissions and has become known by family; spiritual care is very important to this family and operations advisor will continue to assist in care while she is a patient
--- NOTE | 2021-03-02 16:07 | CASEMGMT ---
Social Work Note ALLIE placed a call to pt's Chau and updated him that this worker sent referral to [facility] and this worker is waiting for call back regarding acceptance. ALLIE informed Chau that this worker is leaving soon for the day, will follow up with Chau tomorrow. Chau states understanding. Plan[facility] pending acceptance and pre-cert Emily Robertson AIRCRAFT STRESS ANALYST, AIR TRAFFIC CONTROLLER
[2021-03-02] MEDS: Enalaprilat 1.25 MG/ML Vial 2.5 MG IV ×3 (17:07→23:02)
[2021-03-02 17:31] LABS: Bedside Glucose 101 mg/dL (70-110)
--- NOTE | 2021-03-02 18:10 | PN_ITS ---
Patient Problems: Active and Suspected Problems (Last Reviewed 02/28/21 @ 02:[address] Yunior Sorto MD) Debility (Acute) Acute encephalopathy (Acute) Subjective: Patient was seen and examined today, she appeared very lethargic, she did respond to painful stimuli but not verbal stimuli, she did not follow directions. I talked at length with the patient's who was in the room at the time my examination and later on with the patient's daughter by phone. According to the daughter, patient's overall medical condition declined on February 27 abruptly, daughter admitted that she had changes prior to this that was blamed on medication reaction including paranoia. Today, patient has not been alert enough to take oral intake, I have started her on Vasotec this afternoon for her blood pressure, I went over the patient's MRI of the brain that was performed on 24 February of this year and according to the , he did not realize that the patient has had a history of small strokes. I briefly talked with the patient's daughter by phone today and inquired as to whether they would want a feeding tube placed if the patient was not coming around enough to eat and she said that she would discuss this with her father. For now, we are awaiting the patient's family to decide what intermediate they would like the patient to go to for short-term rehab services. - Physical Exam Vitals/I&O's: Vital Signs Temp Pulse Resp BP Pulse Ox 97.8 F 99 16 173/77 H 96 03/02/21 14:46 03/02/21 14:46 03/02/21 14:46 03/02/21 14:46 03/02/21 14:46 Oxygen Delivery Method Room Air Weight: 39.9 kg Body Mass Index (BMI) 15.0 Finger Stick Blood Glucose 212 Orthostatic Vital Signs Start: 03/01/21 06:37 Freq: Status: Active Protocol: Activity Type Activity Date Activity User E-Sign Co-Sign Detail Recorded Client Recorded Date Recorded By Document 03/01/21 06:00 CDB [id number] 03/01/21 06:42 CDB 03/01/21 06:00 Orthostatic Vitals Lying -Blood Pressure (90/60-120/80) 165/75 H -Extremity Use Left Arm -Pulse Rate (60-100) 82 Standing -Blood Pressure (90/60-120/80) 112/63 -Extremity Use Left Arm -Pulse Rate (60-100) 100 Sitting -Blood Pressure (90/60-120/80) 150/76 H -Extremity Use Left Arm -Pulse Rate (60-100) 85 Intake and Output for Last 24 Hours 02/28/21 03/01/21 03/02/21 23:59 23:59 23:59 Intake Total 3275.0 / 3475.0 2907.75 / 2907.75 913.75 / 913.75 Output Total 850 / 1100 1700 / 1700 Balance 2425.0 / 2375.0 1207.75 / 1207.75 913.75 / 913.75 General: No apparent distress, Well developed, Lethargic HEENT: Atraumatic, PERRLA, EOMI, Normocephalic Oral: Moist Mucosa Neck: Supple, No JVD, Trachea Midline, Thyroid Normal Size and Texture Lungs: Clear to auscultation, Normal air movement, No rhonchi, No wheeze, No rales Cardiovascular: Regular rate, Regular Rhythm, Normal S1, Normal S2, No murmurs, PMI Normal, No rub noted, No Gallop Abdomen: Bowel Sounds Present, Soft, Non Tender, Non-Distended, No hernias noted Extremities: No clubbing, No cyanosis, No edema, Capillary Refill Less than 3 Seconds Skin: No rashes, No breakdown Neurological: Cranial nerves II-XII grossly intact Psych/Mental Status: - - Patient is lethargic, she responds to painful stimuli but does not respond to verbal stimuli and she does not carry on a conversation Microbiology Past 72 Hours 02/27/21 15:20 Mucosa - Nose SARS-CoV-2 Antigen (Rapid) - Final Laboratory Results 03/01/21 21:40: POC Glucose 101 03/02/21 05:40: Sodium 137, Potassium 3.3 L, Chloride 102, Carbon Dioxide 24.0, Anion Gap 11, BUN 15, Creatinine 0.33 L, Estim Creat Clear Calc 25.91, Est GFR (MDRD) Af Amer 243, Est GFR (MDRD) Non-Af 201, BUN/Creatinine Ratio 45.3 H, Glucose 91, Calcium 8.6, Folate 32.70 03/02/21 05:40: Vitamin B12 > 2000 H, Cortisol 23.30 H 03/02/21 06:29: POC Glucose 101 03/02/21 11:16: POC Glucose 102 03/02/21 17:05: POC Glucose 101 Current Medications Acetaminophen (Acetaminophen 325 Mg Tablet) 650 mg PO Q6H PRN PRN PRN Reason: Pain Score 1-10/Temp > 100.7 F Amlodipine Besylate (Amlodipine 10 Mg Tablet) 10 mg PO DAILY [facility] Last Admin: 03/02/21 11:29 Dose: Not Given Documented by: Ascorbic Acid (Ascorbic Acid 500 Mg Tablet) 1,000 mg PO DAILY [facility] Last Admin: 03/02/21 11:29 Dose: Not Given Documented by: Aspirin (Aspirin 81 Mg Tab.Chew) 81 mg PO DAILYCM [facility] Last Admin: 03/02/21 11:28 Dose: Not Given Documented by: Atorvastatin Calcium (Atorvastatin Calcium 40 Mg Tablet) 40 mg PO BID [facility] Last Admin: 03/02/21 11:29 Dose: Not Given Documented by: Calamine/Phenol (Menthol/Lanolin/Calamine/Znox 113 Gm Tube) 1 applic TOPICAL BID [facility]; Protocol Last Admin: 03/02/21 11:18 Dose: 1 applic Documented by: Cholecalciferol (Cholecalciferol (Vit D3) 25 Mcg Tablet (1,000 Units)) 25 mcg PO DAILY [facility] Last Admin: 03/02/21 11:29 Dose: Not Given Documented by: Dextrose (Dextrose 50%-Water 25 Gm/50 Ml Disp.Syrin) 0 gm IV X1 PRN; Protocol PRN Reason: Hypoglycemia Enalaprilat (Enalaprilat 1.25 Mg/Ml Vial) 2.5 mg IV Q6 [facility] Last Admin: 03/02/21 17:07 Dose: 2.5 mg Documented by: Enoxaparin Sodium (Enoxaparin 40 Mg/0.4 Ml Syringe) 40 mg SC DAILY [facility] Last Admin: 03/02/21 11:17 Dose: 40 mg Documented by: Glucagon (Glucagon 1 Mg/Ml Syringe) 1 mg IM .X1 PRN PRN Reason: Hypoglycemia Sodium Chloride () 1,000 mls @ 75 mls/hr IV .[id number] [facility] Last Admin: 03/02/21 11:46 Dose: 75 mls/hr Documented by: Sodium Chloride () 250 mls @ 15 mls/hr IV .[id number] PRN PRN Reason: Saline Flush Insulin Glargine (Insulin Glargine 100 Units/Ml Pen) 10 units SC BREAKFAST [facility] Last Admin: 03/02/21 11:20 Dose: Not Given Documented by: Insulin Human Lispro (Insulin Lispro 100 Unit/Ml Insuln.Pen) 0 unit SC ACHS [facility]; Protocol Last Admin: 03/02/21 17:06 Dose: Not Given Documented by: Magnesium Chloride (Magnesium Chloride 64 Mg Delay Rel.Tablet) 64 mg PO DAILYCM [facility] Last Admin: 03/02/21 11:19 Dose: Not Given Documented by: Metformin HCl (Metformin (Xr) 500 Mg Tablet) 500 mg PO TIDCM [facility] Last Admin: 03/02/21 16:50 Dose: Not Given Documented by: Metoprolol Tartrate (Metoprolol Tartrate 100 Mg Tablet) 100 mg PO QHS [facility] Last Admin: 03/01/21 21:43 Dose: Not Given Documented by: Metoprolol Tartrate (Metoprolol Tartrate 50 Mg Tablet) 50 mg PO BREAKFAST [facility] Last Admin: 03/02/21 11:28 Dose: Not Given Documented by: Nutritional Formula (Lactose Free) (Ensure Enlive 120 Ml Liquid) 120 ml PO 4X/DAY [facility] Last Admin: 03/02/21 16:50 Dose: Not Given Documented by: Ondansetron HCl (Ondansetron 4 Mg/2 Ml Vial) 4 mg IV Q8H PRN PRN PRN Reason: NAUSEA/VOMITING Sodium Chloride (0.9% Saline Lock 10 Ml Syringe) 10 - 40 ml IV UD PRN PRN Reason: SALINE FLUSH Last Admin: 02/27/21 21:06 Dose: 10 ml Documented by: Zinc Sulfate (Zinc Sulfate (50mg Elemental) 220 Mg Capsule) 220 mg PO DAILY [facility] Last Admin: 03/02/21 11:29 Dose: Not Given Documented by: Medical Necessity - Tobacco Use Smoking Status: Never smoker Assessment/Plan All Active Problems (Last Reviewed 02/28/21 @ 02:[address] Yunior Sorto MD) Debility (Acute) Acute encephalopathy (Acute) #1 acute encephalopathy-etiology unclear at this point, it is possible that the patient may have had additional strokes, I discussed this briefly with the patient's daughter and I advised that we repeat the patient's MRI scan tomorrow if the patient was still lethargic. Patient's daughter agreed with this appro ach. For now, I will continue IV fluids at a low rate and monitor the patient. #2 hypokalemia-this is mild, I will recheck the patient's labs tomorrow #3 type 2 diabetes-continue to monitor blood sugars #4 generalized debility-PT and OT will continue to work with the patient #5 severe protein and caloric malnutrition-patient may need nutritional supplementation such as insertion of a PEG tube if she is not safe for oral intake, patient's daughter is going to discuss this with the patient's . #6 cerebrovascular disease-patient is EEG was normal performed during this admission, I have advised the family to consider repeating her MRI of the brain if she is not more alert tomorrow. OBSV E&M: 21835 Subsequent observation care L3
[2021-03-02] MEDS: 0.9% Saline Lock 10 ML Syringe IV ×2 (18:14→22:47)
[2021-03-03] VITALS (9 sets, daily range): BP systolic 114–167; BP diastolic 57–104; PULSE 72–107; RESP 16–18; TEMP 36.4–37.4; O2SAT 97–100; BMI 16.8
[2021-03-03 00:01] LABS: Bedside Glucose 108 mg/dL (70-110)
[2021-03-03] MEDS: 0.9% Normal Saline 1,000 ML 75 ML IV ×2 (00:08→14:07)
[2021-03-03] MEDS: 0.9% Saline Lock 10 ML Syringe IV (04:55)
[2021-03-03] MEDS: Enalaprilat 1.25 MG/ML Vial 2.5 MG IV (04:56)
[2021-03-03 06:26] LABS: Bedside Glucose 133 mg/dL (70-110)
[2021-03-03 08:05] LABS: Absolute Lymphocyte Count 0.85 X10^3/uL (0.83-4.51); Absolute Neutrophil Count 10.1 X10^3/uL (2.0-7.7); Basophil# 0.03 X10^3/uL; Basophil% 0.3 % (0-1); Eosinophil# 0.01 X10^3/uL; Eosinophils% 0.1 % (0-5); Hematocrit 42.4 % (37-47); Hemoglobin 14.3 g/dL (12.0-15.0); Lymphocyte # 0.85 X10^3/ul (4.0); Lymphocyte % 7.4 % (19-41); Mean Corp Hgb Conc 33.7 g/dL (32-36); Mean Corpuscular Hgb 29.9 pg (27.0-32.0); Mean Corpuscular Volume 88.5 fL (81-99); Mean Platelet Vol. 9.5 fl (6.2-12.0); Monocyte# 0.56 X10^3/uL; Monocyte% 4.8 % (0-10); NRBC Flagged by Analyzer 0 % (0-5); Neutrophil # 10.05 X10^3/uL (2.7-7.7); Platelet Count 278 K/mm3 (150-450); RBC Distribution Width CV 15.9 % (11.6-14.6); RBC Distribution Width SD 52.1 fl (35.1-43.9); Red Blood Count 4.79 M/mm3 (4.2-5.4); White Blood Count 11.6 K/mm3 (4.4-11.0)
[2021-03-03 08:25] LABS: ALB/GLOB Ratio 0.8 RATIO (0.9-2.4); AST(SGOT) 26 U/L (15-37); Alanine Aminotransfer ALT/SGPT 38 U/L (13-56); Albumin, Serum 3.1 g/dL (3.2-5.0); Alkaline Phosphatase 73 U/L (45-117); Anion Gap 21 (5-15); BUN 12 mg/dL (7-18); BUN/Creat Ratio 16.8 RATIO (10-20); Calcium,Total 9.2 mg/dL (8.5-10.1); Chloride 98 mmol/L (98-107); Creatinine, Serum 0.71 mg/dL (0.55-1.02); EST Glomerular Filtration Rate 83 mL/min (>60); Est Glom Filt Rate - Afr Amer 100 mL/min (>60); Estimated Creatinine Clearance 25.91 ml/min; Globulin 3.9 g/dL (2.2-4.2); Glucose 141 mg/dL (74-106); Sodium Level 134 mmol/L (136-145)
[2021-03-03 08:30] LABS: Ammonia < 10.0 umol/L (11-32)
--- NOTE | 2021-03-03 09:03 | CASEMGMT ---
Addendum entered by Emily Robertson 03/03/21 10:57: ALLIE received call from Maria D with TCU stating a bed opened up on TCU if family still prefers TCU. SW attempted to call Chau, no answer. ALLIE placed a call to pt's daughter Luz and updated her that a bed opened up on TCU asked if family prefers for pt to return to [facility] or if they still want first choice TCU. Luz states she will leave that decision up to her father (pt's Chau) as he initially wanted pt just to remain at [facility] TCU. Chau is at [facility]. SW in to speak with Chau. ALLIE updated Chau that this worker is still waiting to hear back from [facility] but did inform Chau that [facility] did have a bed that opened up. Chau confirms he prefers for pt to stay at [facility] TCU. ALLIE placed a call to Maria D with TCU, TCU bed is on hold for pt. Maria D to submit for pre-cert once PT/OT works with pt today. ALLIE placed a call to Shaina at [facility] and left message to disregard referral. Plan: TCU pending pre-cert Original Note: Social Work Note ALLIE placed a call to Shaina at [facility] and left message regarding referral. ALLIE asking if [facility] has officially accepted and if pre-cert has been submitted. ALLIE waiting for call back from Shaina. [facility] and pre-cert Emily Robertson METAL DRILL PRESS OPERATOR, TUBE KNITTER
[2021-03-03] MEDS: Aspirin 81 MG TAB.CHEW PO (10:43)
[2021-03-03] MEDS: Metoprolol Tartrate 50 MG Tablet PO (10:43)
[2021-03-03] MEDS: amLODIPine 10 MG Tablet PO (10:43)
[2021-03-03] MEDS: Ascorbic Acid 500 MG Tablet 1000 MG PO (10:44)
[2021-03-03] MEDS: Magnesium Chloride 64 MG Delay Rel.Tablet PO (10:44)
[2021-03-03] MEDS: Cholecalciferol (VIT D3) 25 MCG TABLET (1,000 UNITS) PO (10:45)
[2021-03-03] MEDS: Enoxaparin 40 MG/0.4 ML Syringe SC (10:46)
[2021-03-03] MEDS: metFORMIN (XR) 500 MG Tablet PO ×2 (10:46→17:26)
[2021-03-03] MEDS: Menthol/Lanolin/Calamine/Znox 113 GM Tube 1 APPLIC TOPICAL ×2 (10:46→21:18)
[2021-03-03] MEDS: Insulin Lispro 100 UNIT/ML INSULN.PEN SC (10:57)
[2021-03-03] MEDS: Acetaminophen 325 MG Tablet 650 MG PO ×2 (11:13→21:24)
[2021-03-03 11:35] LABS: Bedside Glucose 174 mg/dL (70-110)
--- NOTE | 2021-03-03 12:02 | PCM.NTREPORT ---
Nutrition Therapy Report - History Nutrition Services has been consulted to:: Manage nutrient details of diet order Current diet / nutrition support order:: Regular diet with magic cup or ensure pudding TID w/ meals. 120 ml ensure enlive 4 times per day w/ medpass (700 kcal and 40 gm pro) - Anthropometric Measurements Height:: 5 ft 4 in Weight:: 44.5 kg Body Mass Index (BMI):: 16.8 - Relevant Labs Relevant Labs:: WBC 11.6 K/mm3 (4.4-11.0) H 03/03/21 07:54 RDW Std Deviation 52.1 fl (35.1-43.9) H 03/03/21 07:54 RDW Coeff of Viraj 15.9 % (11.6-14.6) H 03/03/21 07:54 Plt Count 148 K/mm3 (150-450) L 02/27/21 15:10 Immature Gran % (Auto) 2.200 % (0.0-0.9) H 02/27/21 15:10 Neut % (Auto) 87.0 % (47-70) H 03/03/21 07:54 Lymph % (Auto) 7.4 % (19-41) L 03/03/21 07:54 Absolute Neuts (auto) 10.1 X10^3/uL (2.0-7.7) H 03/03/21 07:54 Sodium 134 mmol/L (136-145) L 03/03/21 07:54 Potassium 3.0 mmol/L (3.5-5.1) L 03/03/21 07:54 Carbon Dioxide 15.0 mmol/L (21.0-32.0) L 03/03/21 07:54 Anion Gap 21 (5-15) H 03/03/21 07:54 BUN 19 mg/dL (7-18) H 02/27/21 15:10 Creatinine 0.33 mg/dL (0.55-1.02) L 03/02/21 05:40 BUN/Creatinine Ratio 45.3 RATIO (10-20) H 03/02/21 05:40 Glucose 141 mg/dL (74-106) H 03/03/21 07:54 Magnesium 1.5 mg/dL (1.6-2.6) L 03/01/21 05:14 AST 41 U/L (15-37) H 02/27/21 15:10 Ammonia < 10.0 umol/L (11-32) L 03/03/21 07:54 Albumin 3.1 g/dL (3.2-5.0) L 03/03/21 07:54 Albumin/Globulin Ratio 0.8 RATIO (0.9-2.4) L 03/03/21 07:54 Vitamin B12 > 2000 pg/mL (211-911) H 03/02/21 05:40 Cortisol 23.30 ug/dL (3.44-22.45) H 03/02/21 05:40 - Assessment Food / Nutrition-Related History:: Pt with overall poor intake at meals; SHANNON Ingram did reweigh pt given ? inaccurate wt 39.9 which would indicate~3.3 Kg wt loss sicne last review. Today's reweigh 44.5 Kg indicates~1.3 Kg wt gain since initial review but, overall PO remains poor and inadequate to meet estimated nutrition needs. PO less than 50% at meals and refusing ensure enlive w/ medpass at times likely due to confusion. Will continue same for now and encourage intake as tolerated. Pt will likely need TF support if intake remains inadequate and wt loss declines. - Nutrition Diagnosis Problem / Etiology / Signs & Symptoms (PES):: Severe pro/joe malnutrition in the context of chronic disease related to inability to consume adequate nutrition likely due to difficulty chewing/swallowing and confusion aeb 8.1% wt loss x 3 wks, suboptimal oral intake, +NFPA with apparent fat/muscle loss (orbital, temporal, clavicle areas). Evidence of Malnutrition Exists:: Yes Severe PCM:: Chronic Illness - Nutrition Intervention Nutrition Prescription:: Estimated energy needs~[id number] joe/day (25 kcal/Kg+500). Estimated protein needs~50-60 gm pro/day (1.2 gm/kg). Estimated fluid needs~1600 ml/day (1 ml/joe) - Food / Nutrient Delivery Interventions Summary of nutrition intervention:: Will continue liberal regular diet. 120 ml ensure enlive 4 times per day w/ medpass (700 kcal and 40 gm pro). Ensure pudding or magic cup TID w/ meals. Continue liberal Regular diet with ONS w/ meals and medpass. Strongly rec TF support to prevent further protein/energy depletion inview of ongoing inadequate PO nutrition and wt loss indicating sever pro/joe malnutrition. Nutrition education provided?: No - MNT Monitoring Further MNT monitoring and evaluation required?: Yes MNT Follow-up in:: 3-5 days
--- NOTE | 2021-03-03 12:46 | CHAPLAIN ---
Type of Pastoral Visit ___ Initial Visit _x__ Follow-up Visit ___ On-call Visit ___ General Patient Visit ___ Spiritual Assessment ___ Family Conference ___ Bereavement ___ Rapid Response ___ Code Blue ___ Other (describe below) Pastoral Care Referral From _x__ Patient _x__ Family ___ Nurse ___ Physician ___ Web Interface Developer ___ Director Experimental Medicine ___ Other (describe below) Sacrament/Intervention _x__ Active listening ___ Anointing ___ Caodaism ___ Bereavement ___ Communion ___ Angela exploration ___ ___ Life review _x__ Prayer ___ Reconciliation ___ Sacrament of Sick _x__ Supportive presence ___ Wedding ___ Other (describe below) Pastoral Comments patient is alert today and actively used her phone to order her lunch while this ammunition assembly ii laborer was in the room; pt is able to converse; pt states I am so weak;
--- NOTE | 2021-03-03 15:29 | CASEMGMT ---
Social Work Note ALLIE reviewed chart, no OT available today. ALLIE spoke with PT, OT didn't get to see pt today and OT has clocked out for the day. ALLIE updated Maria D with TCU, she will try to submit for pre-cert without updated OT. ALLIE updated physician. Plan: TCU pending pre-cert Emily Robertson COAT CHECKER, LONG TERM CARE SOCIAL WORKER
[2021-03-03 17:10] LABS: Bedside Glucose 138 mg/dL (70-110)
--- NOTE | 2021-03-03 18:36 | PN_ITS ---
Patient Problems: Active and Suspected Problems (Last Reviewed 02/28/21 @ 02:[address] Yunior Sorto MD) Debility (Acute) Acute encephalopathy (Acute) Subjective: Patient was seen and examined today, her was in the room at the time of my examination. Patient is much more alert today and is sitting in a chair at the time my examination eating supper. She is also able to converse with me and give me information regarding her medical care in the past. I am unsure as to why the patient was somnolent yesterday. I do not think she needs a further work-up at this time. Labs showed a low potassium this morning at 3, her ammonia level was normal, glucose was 141. Patient had a slightly elevated white blood cell count which I do not think is significant. She was able to take her oral blood pressure medications today and I stopped the IV Vasotec. - Physical Exam Vitals/I&O's: Vital Signs Temp Pulse Resp BP Pulse Ox 98.3 F 84 16 114/57 L 98 03/03/21 14:54 03/03/21 14:54 03/03/21 14:54 03/03/21 14:54 03/03/21 14:54 Oxygen Delivery Method Room Air Weight: 44.5 kg Body Mass Index (BMI) 16.8 Finger Stick Blood Glucose 212 Orthostatic Vital Signs Start: 03/01/21 06:37 Freq: Status: Active Protocol: Activity Type Activity Date Activity User E-Sign Co-Sign Detail Recorded Client Recorded Date Recorded By Document 03/01/21 06:00 CDB [id number] 03/01/21 06:42 CDB 03/01/21 06:00 Orthostatic Vitals Lying -Blood Pressure (90/60-120/80) 165/75 H -Extremity Use Left Arm -Pulse Rate (60-100) 82 Standing -Blood Pressure (90/60-120/80) 112/63 -Extremity Use Left Arm -Pulse Rate (60-100) 100 Sitting -Blood Pressure (90/60-120/80) 150/76 H -Extremity Use Left Arm -Pulse Rate (60-100) 85 Intake and Output for Last 24 Hours 03/01/21 03/02/21 03/03/21 23:59 23:59 23:59 Intake Total 2907.75 / 2907.75 913.75 / 913.75 1927.5 / 1927.5 Output Total 1700 / 1700 600 / 600 500 / 500 Balance 1207.75 / 1207.75 313.75 / 313.75 1427.5 / 1427.5 General: Alert, Oriented x3, Cooperative, No apparent distress, Well developed HEENT: Atraumatic, PERRLA, EOMI, Normocephalic Oral: Moist Mucosa Neck: Supple, No JVD, Negative Carotid Bruits, Trachea Midline, Thyroid Normal Size and Texture Lungs: Clear to auscultation, Normal air movement, No rhonchi, No wheeze, No rales Cardiovascular: Regular rate, Regular Rhythm, Normal S1, Normal S2, No murmurs, PMI Normal, No rub noted Abdomen: Bowel Sounds Present, Soft, Non Tender, Non-Distended Extremities: No clubbing, No cyanosis, No edema, Capillary Refill Less than 3 Seconds Skin: No rashes, No breakdown Musculoskeletal: No Tenderness to Palpation of Joints or Extremities Neurological: Cranial nerves II-XII grossly intact, Neuro grossly intact, Senso ry exam intact to light touch and pain Psych/Mental Status: Normal Affect, Appropriate, Alert and oriented to time, place, person, mood and affect Laboratory Results 03/02/21 22:42: POC Glucose 108 03/03/21 06:18: POC Glucose 133 H 03/03/21 07:54: Sodium 134 L, Potassium 3.0 L, Chloride 98, Carbon Dioxide 15.0 L, Anion Gap 21 H, BUN 12, Creatinine 0.71, Estim Creat Clear Calc 25.91, Est GFR (MDRD) Af Amer 100, Est GFR (MDRD) Non-Af 83, BUN/Creatinine Ratio 16.8, Glucose 141 H, Calcium 9.2, Total Bilirubin 0.80, AST 26, ALT 38, Alkaline Phosphatase 73, Total Protein 7.0, Albumin 3.1 L, Globulin 3.9, Albumin/Globulin Ratio 0.8 L 03/03/21 07:54: WBC 11.6 H, RBC 4.79, Hgb 14.3, Hct 42.4, MCV 88.5, MCH 29.9, MCHC 33.7, RDW Std Deviation 52.1 H, RDW Coeff of Viraj 15.9 H, Plt Count 278, MPV 9.5, Immature Gran % (Auto) 0.400, Neut % (Auto) 87.0 H, Lymph % (Auto) 7.4 L, Larue % (Auto) 4.8, Eos % (Auto) 0.1, Baso % (Auto) 0.3, Absolute Neuts (auto) 10.1 H, Absolute Lymphs (auto) 0.85, Nucleated RBC % 0 03/03/21 07:54: Ammonia < 10.0 L 03/03/21 10:56: POC Glucose 174 H 03/03/21 17:04: POC Glucose 138 H Current Medications Acetaminophen (Acetaminophen 325 Mg Tablet) 650 mg PO Q6H PRN PRN PRN Reason: Pain Score 1-10/Temp > 100.7 F Last Admin: 03/03/21 11:13 Dose: 650 mg Documented by: Amlodipine Besylate (Amlodipine 10 Mg Tablet) 10 mg PO DAILY [facility] Last Admin: 03/03/21 10:43 Dose: 10 mg Documented by: Ascorbic Acid (Ascorbic Acid 500 Mg Tablet) 1,000 mg PO DAILY [facility] Last Admin: 03/03/21 10:44 Dose: 1,000 mg Documented by: Aspirin (Aspirin 81 Mg Tab.Chew) 81 mg PO DAILYCM [facility] Last Admin: 03/03/21 10:43 Dose: 81 mg Documented by: Atorvastatin Calcium (Atorvastatin Calcium 40 Mg Tablet) 40 mg PO BID [facility] Last Admin: 03/03/21 08:00 Dose: Not Given Documented by: Calamine/Phenol (Menthol/Lanolin/Calamine/Znox 113 Gm Tube) 1 applic TOPICAL BID [facility]; Protocol Last Admin: 03/03/21 10:46 Dose: 1 applic Documented by: Cholecalciferol (Cholecalciferol (Vit D3) 25 Mcg Tablet (1,000 Units)) 25 mcg PO DAILY [facility] Last Admin: 03/03/21 10:45 Dose: 25 mcg Documented by: Dextrose (Dextrose 50%-Water 25 Gm/50 Ml Disp.Syrin) 0 gm IV X1 PRN; Protocol PRN Reason: Hypoglycemia Enoxaparin Sodium (Enoxaparin 40 Mg/0.4 Ml Syringe) 40 mg SC DAILY [facility] Last Admin: 03/03/21 10:46 Dose: 40 mg Documented by: Glucagon (Glucagon 1 Mg/Ml Syringe) 1 mg IM .X1 PRN PRN Reason: Hypoglycemia Sodium Chloride () 1,000 mls @ 75 mls/hr IV .[id number] [facility] Last Admin: 03/03/21 14:07 Dose: 75 mls/hr Documented by: Sodium Chloride () 250 mls @ 15 mls/hr IV .[id number] PRN PRN Reason: Saline Flush Insulin Glargine (Insulin Glargine 100 Units/Ml Pen) 10 units SC BREAKFAST [facility] Last Admin: 03/03/21 07:58 Dose: Not Given Documented by: Insulin Human Lispro (Insulin Lispro 100 Unit/Ml Insuln.Pen) 0 unit SC ACHS [facility]; Protocol Last Admin: 03/03/21 17:17 Dose: Not Given Documented by: Magnesium Chloride (Magnesium Chloride 64 Mg Delay Rel.Tablet) 64 mg PO DAILYCM [facility] Last Admin: 03/03/21 10:44 Dose: 64 mg Documented by: Metformin HCl (Metformin (Xr) 500 Mg Tablet) 500 mg PO TIDCM [facility] Last Admin: 03/03/21 17:26 Dose: 500 mg Documented by: Metoprolol Tartrate (Metoprolol Tartrate 100 Mg Tablet) 100 mg PO QHS [facility] Last Admin: 03/02/21 22:47 Dose: Not Given Documented by: Metoprolol Tartrate (Metoprolol Tartrate 50 Mg Tablet) 50 mg PO BREAKFAST [facility] Last Admin: 03/03/21 10:43 Dose: 50 mg Documented by: Nutritional Formula (Lactose Free) (Glucerna Shake 120 Ml Liquid) 120 ml PO 4X/DAY [facility] Last Admin: 03/03/21 17:23 Dose: Not Given Documented by: Ondansetron HCl (Ondansetron 4 Mg/2 Ml Vial) 4 mg IV Q8H PRN PRN PRN Reason: NAUSEA/VOMITING Sodium Chloride (0.9% Saline Lock 10 Ml Syringe) 10 - 40 ml IV UD PRN PRN Reason: SALINE FLUSH Last Admin: 03/03/21 04:55 Dose: 10 ml Documented by: Zinc Sulfate (Zinc Sulfate (50mg Elemental) 220 Mg Capsule) 220 mg PO DAILY [facility] Last Admin: 03/03/21 10:43 Dose: 220 mg Documented by: Medical Necessity - Tobacco Use Smoking Status: Never smoker Assessment/Plan All Active Problems (Last Reviewed 02/28/21 @ 02:[address] Yunior Sorto MD) Debility (Acute) Acute encephalopathy (Acute) #1 acute encephalopathy-etiology unclear at this point, mental status is greatly improved today, I feel the patient is aware of her surroundings and is able to converse appropriately. I am unsure as to the cause of her acute encephalopathy. #2 hypokalemia-this is mild, I will recheck the patient's labs tomorrow, potassium replacement was given to the patient #3 type 2 diabetes-continue to monitor blood sugars #4 generalized debility-PT and OT will continue to work with the patient, she will need short-term placement in a [facility] facility, family wishes her to go to TCU #5 severe protein and caloric malnutrition-patient appears to be eating well at supper today, her intake will be monitored #6 cerebrovascular disease-patient is EEG was normal performed during this admission OBSV E&M: 27301 Subsequent observation care L3
[2021-03-03] MEDS: Potassium Chloride Oral Tablet 20 MEQ PO (18:40)
[2021-03-03] MEDS: Metoprolol Tartrate 100 MG Tablet PO (21:16)
[2021-03-03] MEDS: Atorvastatin Calcium 40 MG Tablet PO (21:16)
[2021-03-03] MEDS: Glucerna Shake 120 ML LIQUID PO (21:23)
[2021-03-03 21:36] LABS: Bedside Glucose 138 mg/dL (70-110)
[2021-03-04] MEDS: 0.9% Normal Saline 1,000 ML 75 ML IV (03:23)
[2021-03-04 03:24] VITALS: BP 136/64; PULSE 68; RESP 16; TEMP 37.2; O2SAT 99
[2021-03-04 06:40] LABS: Bedside Glucose 134 mg/dL (70-110)
[2021-03-04 07:08] LABS: Anion Gap 4 (5-15); BUN 13 mg/dL (7-18); BUN/Creat Ratio 33.5 RATIO (10-20); Calcium,Total 8.4 mg/dL (8.5-10.1); Chloride 106 mmol/L (98-107); Creatinine, Serum 0.39 mg/dL (0.55-1.02); EST Glomerular Filtration Rate 167 mL/min (>60); Est Glom Filt Rate - Afr Amer 202 mL/min (>60); Estimated Creatinine Clearance 28.89 ml/min; Glucose 125 mg/dL (74-106); Potassium 2.8 mmol/L (3.5-5.1); Sodium Level 139 mmol/L (136-145)
[2021-03-04] MEDS: metFORMIN (XR) 500 MG Tablet PO ×2 (07:57→11:26)
[2021-03-04] MEDS: Magnesium Chloride 64 MG Delay Rel.Tablet PO (07:57)
[2021-03-04 07:58] VITALS: BP 120/70; PULSE 89
[2021-03-04] MEDS: Metoprolol Tartrate 50 MG Tablet PO (07:58)
[2021-03-04] MEDS: Aspirin 81 MG TAB.CHEW PO (07:58)
[2021-03-04] MEDS: Glucerna Shake 120 ML LIQUID PO (07:59)
[2021-03-04] MEDS: Acetaminophen 325 MG Tablet 650 MG PO (07:59)
[2021-03-04 09:12] VITALS: BP 133/55; PULSE 81; RESP 16; TEMP 36.7; O2SAT 99
[2021-03-04] MEDS: Enoxaparin 40 MG/0.4 ML Syringe SC (09:26)
[2021-03-04] MEDS: Ascorbic Acid 500 MG Tablet 1000 MG PO (09:26)
[2021-03-04] MEDS: Menthol/Lanolin/Calamine/Znox 113 GM Tube 1 APPLIC TOPICAL (09:27)
[2021-03-04] MEDS: amLODIPine 10 MG Tablet PO (09:27)
[2021-03-04] MEDS: Cholecalciferol (VIT D3) 25 MCG TABLET (1,000 UNITS) PO (09:28)
[2021-03-04] MEDS: Atorvastatin Calcium 40 MG Tablet PO (09:28)
[2021-03-04] MEDS: Potassium Chloride Oral Tablet 20 MEQ 60 MEQ PO (10:27)
--- NOTE | 2021-03-04 10:40 | CASEMGMT ---
Social Work Note SW updated by Maria D with TCU that pre-cert has been submitted. Plan: TCU pending pre-cert Emily Robertson BI APPLICATION DEVELOPER, METAL CABINET FINISHER
[2021-03-04] MEDS: Insulin Lispro 100 UNIT/ML INSULN.PEN SC (11:27)
[2021-03-04 11:51] LABS: Bedside Glucose 191 mg/dL (70-110)
[2021-03-04 14:18] VITALS: BP 101/50; PULSE 71; RESP 16; TEMP 36.9; O2SAT 99
--- NOTE | 2021-03-04 16:35 | PCM.TXEXTCAR ---
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 (2) Debility Status: Acute (3) Hypertension Status: Chronic (4) Diabetes 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 Status: Chronic (5) Hypokalemia Status: Chronic (6) Acute encephalopathy Status: Acute Comment: etiology unknown - Allergies/Procedures Done in Hospital Allergies/Adverse Reactions: Allergies No Known Allergies Allergy (Verified 02/24/21 14:12) Procedures: None - Type of Care/Length of Stay Estimated LOS: Convalescent Care Less Than 30 days Type of Care Needed: Skilled Rehab Potential: Good Prognosis: Good - Additional Orders/Day of Discharge H&P will serve as current which was dated: 02/27/21 Day of Discharge: 03/04/21 - Dietary and Speech Recommendations Dietitian Recommendations/Changes: Continue 1999 joe diet with ONS w/ meals and medpass. - Follow Up Care Primary Care Physician: Antonino Rosario DO [Primary Care Provider] - 2 Days
--- NOTE | 2021-03-04 16:40 | CASEMGMT ---
Addendum entered by Emily Robertson 03/04/21 16:58: Discharge order is in and transfer summary completed. SW placed a call to Charge Nurse and let RN know this information and that pt can discharge to TCU today. Plan: TCU today Original Note: Social Work Note SW received call from Maria D with TCU stating pre-cert has been obtained and pt is able to discharge today. ALLIE updated physician. SW in to speak with pt and pt's Chau. ALLIE updated Chau on approval to TCU and discharge today. Chau states understanding. ALLIE updated RN. RN states pt's daughter came to [facility] to see pt before pt discharges to TCU. ALLIE received medication list, original in SNF folder and copy on pt's chart. ALLIE updated charge nurse that once physician does discharge and transfer summary pt is able to discharge to TCU. Plan: TCU today Emily Robertson FRAME MAKER, DRAIN CLEANER
[2021-03-04 17:01] LABS: Bedside Glucose 86 mg/dL (70-110)
--- NOTE | 2021-03-04 19:20 | PCM.DC.SUM ---
Discharge Date and Diagnosis - Problem List Patient Problems: Active and Suspected Problems (Last Reviewed 02/28/21 @ 02:[address] Yunior Sorto MD) Debility (Acute) Acute encephalopathy (Acute) etiology unknown Date of Admission: 02/27/21 Date of Discharge: 03/04/21 - Primary Discharge Diagnosis Acute Problems: Active Problems (Last Reviewed 02/28/21 @ 02:[address] Yunior Sorto MD) #1 acute encephalopathy-etiology unknown #2 hypokalemia #3 type 2 diabetes #4 generalized debility #5 severe protein and caloric malnutrition #6 cerebrovascular disease #7 right lower extremity neuropathy-etiology unclear, chronic - Secondary Discharge Diagnosis Chronic Problems: Chronic Problems (Last Reviewed 02/28/21 @ 02:[address] 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 Patient had been discharged from the hospital 1 day before after undergoing a work-up for similar symptoms which had improved. Work-up in the emergency room included labs which showed a normal CBC, patient's chemistry profile was unremarkable, patient's urinalysis was unremarkable. Brain CT showed chronic involutional changes of the brain. Patient appeared confused in the emergency room and was only able to utter a few sentences. Patient was placed in the observation status on MedSurg 3, patient remains lethargic for the next 4 days, she was given supportive care including IV fluids and potassium replacement. I had discussions with the patient's daughter and the patient's , the exact etiology of her encephalopathy was unclear. On 03/03/2021, patient was examined and noted to be more alert and resumed eating. Patient had an MRI of the brain performed in January 2021 which showed 2 small ischemic infarctions, I discussed this with the patient's and daughter who were not aware that the patient had an abnormal MRI at that time. She was seen by nutritional services and PT and OT, she was felt to benefit from short-term custodial services at a skilled facility. A bed in TCU was able to be obtained. On 03/04/2021, patient was seen and examined:General: Alert, Oriented x3, Cooperative, No apparent distress, Well developed HEENT: Atraumatic, PERRLA, EOMI, Normocephalic Oral: Moist Mucosa Neck: Supple, No JVD, Negative Carotid Bruits, Trachea Midline, Thyroid Normal Size and Texture Lungs: Clear to auscultation, Normal air movement, No rhonchi, No wheeze, No rales Cardiovascular: Regular rate, Regular Rhythm, Normal S1, Normal S2, No murmurs, PMI Normal, No rub noted Abdomen: Bowel Sounds Present, Soft, Non Tender, Non-Distended Extremities: No clubbing, No cyanosis, No edema, Capillary Refill Less than 3 Seconds Skin: No rashes, No breakdown Musculoskeletal: No Tenderness to Palpation of Joints or Extremities Neurological: Cranial nerves II-XII grossly intact, Neuro grossly intact, Sensory exam intact to light touch and pain Psych/Mental Status: Normal Affect, Appropriate, Alert and oriented to time, place, person, mood and affect Patient appears stable for discharge to TCU on 03/04/2021. Patient Problems: Active and Suspected Problems (Last Reviewed 02/28/21 @ 02:[address] Yunior Sorto MD) Debility (Acute) Acute encephalopathy (Acute) etiology unknown - Physical Exam Vitals/I&O's: Vital Signs Temp Pulse Resp BP Pulse Ox 98.4 F 71 16 101/50 L 99 03/04/21 14:18 03/04/21 14:18 03/04/21 14:18 03/04/21 14:18 03/04/21 14:18 Oxygen Delivery Method Room Air Weight: 44.5 kg Body Mass Index (BMI) 16.8 Finger Stick Blood Glucose 212 Intake and Output for Last 24 Hours 03/02/21 03/03/21 03/04/21 23:59 23:59 23:59 Intake Total 913.75 / 913.75 2377.5 / 2377.5 2195 / 2195 Output Total 600 / 600 800 / 800 850 / 850 Balance 313.75 / 313.75 1577.5 / 1577.5 1345 / 1345 Laboratory Results 03/03/21 21:14: POC Glucose 138 H 03/04/21 05:40: Sodium 139, Potassium 2.8 L, Chloride 106, Carbon Dioxide 29.0, Anion Gap 4 L, BUN 13, Creatinine 0.39 L, Estim Creat Clear Calc 28.89, Est GFR (MDRD) Af Amer 202, Est GFR (MDRD) Non-Af 167, BUN/Creatinine Ratio 33.5 H, Glucose 125 H, Calcium 8.4 L 03/04/21 06:29: POC Glucose 134 H 03/04/21 11:23: POC Glucose 191 H 03/04/21 16:55: POC Glucose 86 Home Medications: Medications to take at Discharge amlodipine 10 mg tablet 10 mg PO DAILY 12/01/19 ascorbic acid (vitamin C) 1,000 mg tablet 1,000 mg PO DAILY 12/01/19 cholecalciferol (vitamin D3) 125 mcg (5,000 unit) disintegrating tablet 1 tab PO DAILY 12/01/19 magnesium 250 mg tablet 250 mg PO DAILY 12/01/19 metformin 500 mg tablet,extended release 24 hr 500 mg PO TIDCM 12/01/19 metoprolol tartrate 50 mg tablet 100 mg PO QHS 12/01/19 Metoprolol Tartrate 50 mg PO BREAKFAST 07/04/20 Zinc Gluconate [Zinc] 100 mg PO DAILY 07/04/20 Acetaminophen [Tylenol Tablet] 650 mg PO Q6H PRN PRN tab 02/09/21 Aspirin 81 mg PO DAILY 03/04/21 Atorvastatin Calcium [Lipitor] 40 mg PO BID 03/04/21 Enoxaparin [Lovenox] 40 mg SC DAILY 03/04/21 Glucerna Shake 120 ml PO 4X/DAY 03/04/21 Insulin Glargine [Lantus SoloStar Pen] 15 units SC BREAKFAST 03/04/21 Menthol/Lanolin/Calamine/Znox [Calmoseptine Ointment] 1 applic TOPICAL BID 03/04/21 Potassium Chloride 30 meq PO DAILY 03/04/21 Primary Care Physician: Antonino Rosario DO [Primary Care Provider] - 2 Days Patient Instructions: ED Weakness (Uncertain Cause) Disposition: Intermediate facility Minutes spent on discharge:: 30 Patient Condition:: Stable Medical Necessity - Tobacco Use Smoking Status: Never smoker Meaningful Use Info Meaningful Use Diagnoses (Choose all that apply): None applicable OBSV E&M: 55948 Observation care discharge
== END 2021-03-04 17:05 | disposition skilled nursing facility (03) ==
LOC: ED 19:30 → MS3 19:36
PROVIDERS: Admitting Provider Hospitalist; Emergency Provider Emergency Medicine; PCP Preventive Medicine Occupational Medicine; Visit Provider Internal Medicine
DX: G93.41 Metabolic encephalopathy (principal); E87.6 Hypokalemia; E11.40 Type 2 diabetes mellitus with diabetic neuropathy, unspecified; I95.1 Orthostatic hypotension; E43 Unspecified severe protein-calorie malnutrition; I49.1 Atrial premature depolarization; Z68.1 Body mass index [BMI] 19.9 or less, adult; I10 Essential (primary) hypertension; I48.0 Paroxysmal atrial fibrillation; E78.5 Hyperlipidemia, unspecified; E87.1 Hypo-osmolality and hyponatremia; E55.9 Vitamin D deficiency, unspecified; Z79.899 Other long term (current) drug therapy; Z79.82 Long term (current) use of aspirin; Z79.4 Long term (current) use of insulin; M19.90 Unspecified osteoarthritis, unspecified site
CPT/HCPCS: 36415; 51702; 70450; 71045; 80048; 80053; 81001; 82140; 82533; 82607; 82746; 82962; 83605; 83735; 84484; 85025; 87426; 93005; 95819; 96361; 96365; 96366; 96372; 96375; 96376; 97110; 97162; 97165; 97530; 97535; 97803; 99218; 99285; J7030; A4216; G0378

== ENCOUNTER 2021-03-04 17:44 | Inpatient (IN) | payer MEDICARE, SELFPAY ==
[2021-03-03 12:04] VITALS: BMI 16.8
[2021-03-04 17:50] VITALS: BP 118/61; PULSE 74; RESP 16; TEMP 36.9; O2SAT 98; BMI 17.2
[2021-03-04] MEDS: Menthol/Lanolin/Calamine/Znox 113 GM Tube 1 APPLIC TOPICAL (18:59)
--- NOTE | 2021-03-04 20:35 | HP.PCM_ITS ---
Problem List (1) Weakness Status: Acute (2) Encephalopathy Status: Acute (3) Hyponatremia Status: Chronic (4) Hypokalemia Status: Acute (5) Hypomagnesemia Status: Acute (6) Diabetes mellitus Status: Chronic (7) Atrial fibrillation Status: Chronic (8) Debility Status: Acute (9) Hypertension Status: Chronic History of Present Illness Date of Admission: 03/04/21 Chief Complaint: Here for rehabilitation, strengthening, prior to discharge home with spouse/family. 02/27/2021 The patient is a 86 year old Female with below past medical history presented to [facility] Emergency Department with weakness. 02/27/2021 CT brain chronic involutional changes of brain. 02/27/2021 Chest X-ray negative. Discharged from hospital 1 day prior with similar symptoms, improved in hospital. Recent mental decline, back pain x 2 weeks. Patient was in [facility], became delirious, family too her home. Confused, weak 3 days ago. Repeating herself, unable to perform activities of daily living. 02/27/2021 Admit to Hospital. PT/OT for [facility] facility. Gentle IV fluids. Improve blood pressure control. Hold Metformin. 02/28/2021 Confused, unable to answer questions. Suspect dementia. Replete potassium. 02/28/2021 Normal awake EEG, MRI brain showed marked atrophy. 03/01/2021 Dementia with paranoid ideation. Replete magnesium. Stop Amlodipine for orthostatic hypotension. Evaluate for adrenal insufficiency. 03/02/2021 Consider repeating MRI brain to evaluate for stroke. Consider PEG for inability to eat. IV Vasotec for blood pressure control. 03/03/2021 PT/OT for SNF/TCU. 03/04/2021 Admit to TCU with debility, here for rehabilitation, strengthening, prior to discharge home with spouse/family. Upon arrival, resident knows president is Leon Manuel, knows hotel service manager is a woman, knows the year is 2020, knows day of week is Tuesday. She is awake but she keeps her eyes closed while talking with me. Even moderately demented patients cannot answer these, questions, I wonder about late onset mental illness such as schizophrenia. Past Medical History Past Medical History (Chronic Problems): Chronic Problems (Last Reviewed 02/28/21 @ 02:[address] 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 Yunior Sorto MD) Bloody stool K92.1 Diabetes E11.9 Hemorrhoids K64.9 HTN (hypertension) I10 Allergies No Known Allergies Allergy (Verified 02/24/21 14:12) Home Medications: Ambulatory Orders Medication Instructions Recorded amlodipine 10 mg tablet 10 mg PO DAILY 12/01/19 ascorbic acid (vitamin C) 1,000 mg 1,000 mg PO DAILY 12/01/19 tablet cholecalciferol (vitamin D3) 125 1 tab PO DAILY 12/01/19 mcg (5,000 unit) disintegrating tablet magnesium 250 mg tablet 250 mg PO DAILY 12/01/19 metformin 500 mg tablet,extended 500 mg PO TIDCM 12/01/19 release 24 hr metoprolol tartrate 50 mg tablet 100 mg PO QHS 12/01/19 Metoprolol Tartrate 50 mg PO BREAKFAST 07/04/20 Zinc Gluconate [Zinc] 100 mg PO DAILY 07/04/20 Acetaminophen [Tylenol Tablet] 650 mg PO Q6H PRN PRN tab 02/09/21 Aspirin 81 mg PO DAILY 03/04/21 Atorvastatin Calcium [Lipitor] 40 mg PO BID 03/04/21 Enoxaparin [Lovenox] 40 mg SC DAILY 03/04/21 Glucerna Shake 120 ml PO 4X/DAY 03/04/21 Insulin Glargine [Lantus SoloStar 15 units SC BREAKFAST 03/04/21 Pen] Menthol/Lanolin/Calamine/Znox 1 applic TOPICAL BID 03/04/21 [Calmoseptine Ointment] Potassium Chloride 30 meq PO DAILY 03/04/21 Surgical History: Surgical History (Last Reviewed 02/28/21 @ 02:[address] Yunior Sorto MD) History of hip replacement Z96.649 Surgical History: total hip arthroplasty - Left., - - Right partial hip replacement. Psychiatric History: No pertinent psych hx OPTIMIZATION ENGINEER History: No pertinent OPTIMIZATION ENGINEER history Lives: Spouse/ Significant Other, With Family Smoking Status: Never smoker Tobacco Use: Non-smoker Alcohol: None Drugs: None - *Family History Paternal History Items: Cancer - Leukemia, - Maternal History Items: Heart Disease Review of Systems Constitutional: Denies: Chills, Fever, Weight Change HEENT: Denies: Head Aches, Sinus Congestion, Sinus Drainage Cardiovascular: Denies: Chest Pain, Palpitations Respiratory: Denies: Cough, Shortness of breath at rest, Sputum production Gastrointestinal: Denies: Abdominal Pain, Nausea, Vomiting Genitourinary: Denies: Dysuria Musculoskeletal: Denies: Joint Pain, Joint Tenderness Skin: Denies: Rash, Wounds Neurological: Denies: Numbness, Tingling, Focal weakness Psychiatric: Denies: Anxiety, Depression, Homicidal Ideations, Suicidal Ideations Hematologic/ Lymphatic: Denies: Easy Bruising, Easy Bleeding VTE Information - Inpt Only VTE Present on Admission: No VTE Mechan Device Prophylaxis: Knee High ZOË Hose VTE Pharm Prophylaxis ordered?: Yes Reason prophylaxis not ordered:: Treatment Not Indicated Patient Problems: Active and Suspected Problems (Last Reviewed 02/28/21 @ 02:[address] Yunior Sorto MD) Debility (Acute) Weakness (Acute) Encephalopathy (Acute) Hypokalemia (Acute) Hypomagnesemia (Acute) - Physical Exam Vitals/I&O's: Vital Signs Temp Pulse Resp BP Pulse Ox 98.5 F 74 16 118/61 98 03/04/21 17:50 03/04/21 17:50 03/04/21 17:50 03/04/21 17:50 03/04/21 17:50 Oxygen Delivery Method Room Air Weight: 45.558 kg Body Mass Index (BMI) 16.8 Finger Stick Blood Glucose 212 General: Alert, Oriented x3, Cooperative HEENT: Atraumatic, PERRLA, EOMI, Normocephalic Neck: Supple, No JVD, Negative Carotid Bruits Lungs: Clear to auscultation, Normal air movement Cardiovascular: Regular rate, No murmurs Abdomen: Bowel Sounds Present, Soft, Non Tender Extremities: No edema, Capillary Refill Less than 3 Seconds Skin: No rashes, No breakdown Musculoskeletal: No Tenderness to Palpation of Joints or Extremities Neurological: Cranial nerves II-XII grossly intact Psych/Mental Status: Normal Affect, Appropriate Laboratory Results 03/04/21 19:54: COVID-19 (SHAYNA) Pending Current Medications Acetaminophen (Acetaminophen 325 Mg Tablet) 650 mg PO Q6H PRN PRN PRN Reason: Pain Score 1-10/Temp > 100.7 F Amlodipine Besylate (Amlodipine 10 Mg Tablet) 10 mg PO DAILY [facility] Ascorbic Acid (Ascorbic Acid 500 Mg Tablet) 1,000 mg PO DAILY [facility] Aspirin (Aspirin 81 Mg Tab.Chew) 81 mg PO DAILYCM [facility] Atorvastatin Calcium (Atorvastatin Calcium 40 Mg Tablet) 40 mg PO BID@0600,2200 [facility] Calamine/Phenol (Menthol/Lanolin/Calamine/Znox 113 Gm Tube) 1 applic TOPICAL BID [facility]; Protocol Last Admin: 03/04/21 18:59 Dose: 1 applic Documented by: Cholecalciferol (Cholecalciferol (Vit D3) 25 Mcg Tablet (1,000 Units)) 125 mcg PO DAILY [facility] Enoxaparin Sodium (Enoxaparin 40 Mg/0.4 Ml Syringe) 40 mg SC DAILY [facility] Insulin Glargine (Insulin Glargine 100 Units/Ml Pen) 15 units SC BREAKFAST [facility] Magnesium Chloride (Magnesium Chloride 64 Mg Delay Rel.Tablet) 128 mg PO DAILY [facility] Metformin HCl (Metformin (Xr) 500 Mg Tablet) 500 mg PO TIDCM [facility] Metoprolol Tartrate (Metoprolol Tartrate 100 Mg Tablet) 100 mg PO QHS [facility] Metoprolol Tartrate (Metoprolol Tartrate 50 Mg Tablet) 50 mg PO BREAKFAST [facility] Nutritional Formula (Lactose Free) (Glucerna Shake 120 Ml Liquid) 120 ml PO 4X/DAY [facility] Potassium Chloride (Potassium Chloride Oral Tablet 10 Meq) 30 meq PO DAILYCM [facility] Tuberculin PPD (Tuberculin,Purif.Prot.Deriv. 50 Tu/Ml Vial) 5 tu ID X1 ONE Stop: 03/05/21 10:01 Tuberculin PPD (Tuberculin,Purif.Prot.Deriv. 50 Tu/Ml Vial) 5 tu ID X1 ONE Stop: 03/12/21 10:01 Zinc Sulfate (Zinc Sulfate (50mg Elemental) 220 Mg Capsule) 440 mg PO DAILY [facility] Assessment/Plan All Active Problems (Last Reviewed 02/28/21 @ 02:[address] Yunior Sorto MD) Debility (Acute) Weakness (Acute) Encephalopathy (Acute) Hypokalemia (Acute) Hypomagnesemia (Acute) Acute encephalopathy (Acute) 86 year old female with below past medical history hospitalized for encephalopathy of unknown cause, complicated by hypokalemia, hypomagnesemia, admitted to TCU with debility, here for rehabilitation, strengthening, prior to discharge home with spouse/family. * Debility - PT/OT. * Cognition - ST. * Pain - Tylenol 1000MG Q6H PRN pain (1-10) * Bowel - Miralax 17GM daily, Senna/colace 1 tablet BID, MOM 30ML daily PRN, Dulcolax 10MG WA daily PRN. * Adult immunization - Administer Prevnar 13, Pneumovax 23, Fluzone, COVID19 vaccine as appropriate. * DVT prophylaxis - Lovenox 40MG SC daily. * Hypertension - Metoprolol 50MG, 100MG, Amlodipine 10MG daily. * Atrial fibrillation - Metoprolol 50MG, 100MG, Aspirin 81MG daily. * Hyperlipidemia - Atorvastatin 40MG BID. * Vitamin D deficiency - D3 125MCG daily. * Nutrition - Glucerna Shake 120ML 4x/day. * Diabetes Mellitus II - Metformin 500MG TIDCM, Lantus 15 units QAM. * Hypomagnesemia - Magnesium 128MG daily. * Skin irritation - Calmoseptine topical BID. * Hypokalemia - K-Dur 30MEQ daily. * Zinc deficiency - Zinc 440MG daily.
[2021-03-04 21:11] LABS: Bedside Glucose 87 mg/dL (70-110)
--- NOTE | 2021-03-04 21:28 | NURSING ---
Patient refuses to open eyes but was able to assess mouth tongue pink, moist, and natural teeth. 21:30 VS Bp-147/76, HR-65, RR-16, Temp- 98.5 oral, SpO2-98% RA, This nurse assessed lungs clear anterior has a rise and fall with chest, bowel sounds hypoactive in all four quadrant. Patient response with pressure applied to cuticle and patient had movement with eyes but continue to keep them closed at this time. Patient will not open eyes or response to any question or name with this nurse. Rn made aware.
--- NOTE | 2021-03-04 22:20 | NURSING ---
Updated on assessment by patient's nurse. In to see patient, she won't open eyes, awaked to voice or touch or follow commands, will grimace with painful stimuli. VSS, blood sugar in 80s. Patient's skin is warm and dry, pulse strong and regular. She won't wake up to take medications, per previous notes she's refused some meds and has had a poor intake. Updated Dr. Corea on patient presentation, vitals, blood sugar, that she's not taking meds. Order for glucagon as needed. Will continue to monitor.
[2021-03-05 05:44] LABS: Absolute Lymphocyte Count 0.95 X10^3/uL (0.83-4.51); Absolute Neutrophil Count 3.5 X10^3/uL (2.0-7.7); Basophil# 0.02 X10^3/uL; Basophil% 0.4 % (0-1); Eosinophil# 0.12 X10^3/uL; Eosinophils% 2.4 % (0-5); Hematocrit 32.7 % (37-47); Hemoglobin 11.1 g/dL (12.0-15.0); Lymphocyte # 0.95 X10^3/ul (4.0); Lymphocyte % 18.9 % (19-41); Mean Corp Hgb Conc 33.9 g/dL (32-36); Mean Corpuscular Hgb 29.9 pg (27.0-32.0); Mean Corpuscular Volume 88.1 fL (81-99); Monocyte# 0.37 X10^3/uL; Monocyte% 7.4 % (0-10); NRBC Flagged by Analyzer 0 % (0-5); Neutrophil # 3.54 X10^3/uL (2.7-7.7); Neutrophil % 70.5 % (47-70); Platelet Count 208 K/mm3 (150-450); RBC Distribution Width CV 16.5 % (11.6-14.6); Red Blood Count 3.71 M/mm3 (4.2-5.4)
[2021-03-05 05:57] LABS: Anion Gap 3 (5-15); BUN 12 mg/dL (7-18); BUN/Creat Ratio 33.3 RATIO (10-20); Calcium,Total 8.7 mg/dL (8.5-10.1); Chloride 103 mmol/L (98-107); Creatinine, Serum 0.36 mg/dL (0.55-1.02); EST Glomerular Filtration Rate 182 mL/min (>60); Est Glom Filt Rate - Afr Amer 220 mL/min (>60); Glucose 85 mg/dL (74-106); Sodium Level 138 mmol/L (136-145)
[2021-03-05 06:30] LABS: Bedside Glucose 101 mg/dL (70-110)
[2021-03-05] MEDS: Enoxaparin 40 MG/0.4 ML Syringe SC (07:11)
[2021-03-05] MEDS: Menthol/Lanolin/Calamine/Znox 113 GM Tube 1 APPLIC TOPICAL ×2 (07:13→17:01)
--- NOTE | 2021-03-05 07:13 | NURSING ---
Patient continuous to not be responsive with question or taking medication. No paper work filled out for admission because of patient state of mind. RN aware.
[2021-03-05 09:48] VITALS: BP 148/75; PULSE 73
--- NOTE | 2021-03-05 09:55 | NURSING ---
PT REFUSING MEDS,FOOD AND WATER. PT WILL NOT OPEN EYES OR MOVE AT ALL ANY WHERE EVEN AFTER STERNAL RUB. VITALS DONE. RN AND DR. GLASGOW AWARE. COMPASSION VISIT SCHEDULED TODAY.
[2021-03-05 09:58] VITALS: BP 148/75; PULSE 73; RESP 12; TEMP 36.6; O2SAT 96
[2021-03-05 10:55] LABS: Bedside Glucose 114 mg/dL (70-110)
[2021-03-05] MEDS: Tuberculin,Purif.prot.deriv. 50 TU/ML Vial 5 ML ID (11:09)
--- NOTE | 2021-03-05 13:25 | PCA ---
Pt is not responding to staff commands of opening eyes, calling of pt's name
[2021-03-05 13:35] VITALS: BP 148/75; PULSE 75; RESP 16; TEMP 36.6; O2SAT 98
--- NOTE | 2021-03-05 14:21 | PHA.CONS_ITS ---
<Gabi Bailey M - Last Filed: 03/05/21 14:21> Progress Note - Pharmacy Subjective: [] Objective: Allergies No Known Allergies Allergy (Verified 02/24/21 14:12) Current Medications Generic Name Dose Route Start Last Admin Trade Name Freq PRN Reason Stop Dose Admin Acetaminophen 1,000 mg 03/04/21 20:57 Acetaminophen 500 Mg Tablet PO Q6H PRN PRN Pain Score 1-10 Amlodipine Besylate 10 mg 03/05/21 06:00 03/05/21 07:08 Amlodipine 10 Mg Tablet PO Not Given DAILY PAZ Ascorbic Acid 1,000 mg 03/05/21 06:00 03/05/21 07:09 Ascorbic Acid 500 Mg Tablet PO Not Given DAILY PAZ Aspirin 81 mg 03/05/21 08:00 03/05/21 09:47 [facility]in 81 Mg [facility] Atorvastatin Calcium 40 mg 03/04/21 22:00 03/05/21 07:08 Atorvastatin Calcium 40 Mg Tablet PO Not Given BID@0600,2200 [facility] Bisacodyl 10 mg 03/04/21 20:57 Bisacodyl 5 Mg Tablet PO DAILY PRN Constipation Calamine/Phenol 1 applic 03/04/21 18:00 03/05/21 07:13 Menthol/Lanolin/Calamine/Znox 113 Gm Tube TOPICAL 1 applic BID [facility] Administration Protocol Cholecalciferol 125 mcg 03/05/21 06:00 03/05/21 07:09 Cholecalciferol (Vit D3) 25 Mcg Tablet (1,000 Units) PO Not Given DAILY [facility] Enoxaparin Sodium 40 mg 03/05/21 06:00 03/05/21 07:11 Enoxaparin 40 Mg/0.4 Ml Syringe SC 40 mg DAILY PAZ Administration Glucagon 1 mg 03/04/21 22:14 Glucagon 1 Mg/Ml Syringe IM X1 PRN low blood sugar Insulin Glargine 15 units 03/05/21 08:00 03/05/21 09:48 Insulin Glargine 100 Units/Ml Pen SC Not Given BREAKFAST [facility] Magnesium Chloride 128 mg 03/05/21 06:00 03/05/21 07:08 Magnesium Chloride 64 Mg Delay Rel.Tablet PO Not Given DAILY PAZ Magnesium Hydroxide 30 ml 03/04/21 20:56 Magnesium Hydroxide 30 Ml Udc PO DAILY PRN Constipation Metformin HCl 500 mg 03/05/21 07:45 03/05/21 11:12 Metformin (Xr) 500 Mg Tablet PO Not Given TIDCM [facility] Metoprolol Tartrate 100 mg 03/04/21 22:00 03/05/21 03:05 Metoprolol Tartrate 100 Mg Tablet PO Not Given QHS [facility] Metoprolol Tartrate 50 mg 03/05/21 08:00 03/05/21 09:48 Metoprolol Tartrate 50 Mg Tablet PO Not Given BREAKFAST [facility] Nutritional Formula (Lactose Free) 120 ml 03/04/21 22:00 03/05/21 11:11 Glucerna Shake 120 Ml Liquid PO Not Given 4X/DAY [facility] Polyethylene Glycol 17 gm 03/05/21 06:00 03/05/21 07:08 Polyethylene Glycol 3350 17 Gm Packet PO Not Given DAILY PAZ Potassium Chloride 30 meq 03/05/21 08:00 03/05/21 09:47 Potassium Chloride Oral Tablet 10 Meq PO Not Given DAILYCM [facility] Senna/Docusate Sodium 1 tablet 03/05/21 06:00 03/05/21 07:08 Senna/Docusate Sodium 1 Tablet PO Not Given BID PAZ Tuberculin PPD 5 tu 03/12/21 10:00 Tuberculin,Purif.Prot.Deriv. 50 Tu/Ml Vial ID 03/12/21 10:01 X1 ONE Zinc Sulfate 440 mg 03/05/21 06:00 03/05/21 07:09 Zinc Sulfate (50mg Elemental) 220 Mg Capsule PO Not Given DAILY [facility] Problem List (Last Reviewed 02/28/21 @ 02:[address] Yunior Sorto MD) Debility (Acute) Weakness (Acute) Encephalopathy (Acute) Hyponatremia (Chronic) Hypokalemia (Acute) Hypomagnesemia (Acute) Diabetes mellitus (Chronic) Atrial fibrillation (Chronic) Hypertension (Chronic) Vital Signs Temp Pulse Resp BP Pulse Ox 97.9 F 75 16 148/75 H 98 03/05/21 13:35 03/05/21 13:35 03/05/21 13:35 03/05/21 13:35 03/05/21 13:35 Oxygen Delivery Method Room Air Weight: 45.558 kg Body Mass Index (BMI) 16.8 Finger Stick Blood Glucose 212 Sodium 138 mmol/L (136-145) 03/05/21 05:05 Potassium 3.0 mmol/L (3.5-5.1) L 03/05/21 05:05 Chloride 103 mmol/L (98-107) 03/05/21 05:05 Carbon Dioxide 32.0 mmol/L (21.0-32.0) 03/05/21 05:05 Anion Gap 3 (5-15) L 03/05/21 05:05 BUN 12 mg/dL (7-18) 03/05/21 05:05 Creatinine 0.36 mg/dL (0.55-1.02) L 03/05/21 05:05 Est GFR (MDRD) Af Amer 220 mL/min (>60) 03/05/21 05:05 Est GFR (MDRD) Non-Af 182 mL/min (>60) 03/05/21 05:05 BUN/Creatinine Ratio 33.3 RATIO (10-20) H 03/05/21 05:05 Glucose 85 mg/dL (74-106) 03/05/21 05:05 Assessment/Plan: 1. Pain: Tylenol 1000mg PO Q6h PRN Pain 1-10. Please continue to monitor for S/S increased or decreased pain. 2. Hypertension/Atrial Fibrillation/ HLD: Norvasc 10mg PO Daily, Aspirin 81mg PO Daily, Lipitor 40mg PO QHS, Lopressor 50mg PO breakfast & 100mg PO QHS. Please continue to monitor BP, pulse, S/S bleeding/bruising, lipid panel annually. 3. Diabetes: Metformin 500mg PO TIDCM, Lantus 15 unit SC Daily. Please continue to monitor BG, A1C, S/S hypoglycemia. 4. DVT Prophylaxis: Lovenox 40mg SC Daily. Please continue to monitor renal function, S/S bleeding/bruising. 5. General Wellness: Vitamin C 1,000 mg PO daily, Vitamin D3 125mcg PO daily, Magnesium Chloride 128mg PO daily, KCl 30mEq PO Daily, Zinc 440mg PO Daily. Please continue to monitor electrolyte levels as clinically indicated. Psychotropic Medications: None Unnecessary Medications: None Bowel Regimen: Miralax 17g PO Daily, Senna/Docusate 1 tab PO BID, Dulcolax 10mg PO Daily PRN, MOM 30mL PO Daily PRN. Please continue to monitor for increased/decreased constipation and/or diarrhea, PRN medication use. Date of Note:: 03/05/21 - Provider Comments Provider responsibility: Provider responsible to enter orders to implement recommendations <AnmolEdmar Estrada - Last Filed: 03/05/21 17:17> Progress Note - Pharmacy Subjective: [] Objective: Allergies No Known Allergies Allergy (Verified 02/24/21 14:12) Current Medications Generic Name Dose Route Start Last Admin Trade Name Freq PRN Reason Stop Dose Admin Acetaminophen 1,000 mg 03/04/21 20:57 Acetaminophen 500 Mg Tablet PO Q6H PRN PRN Pain Score 1-10 Amlodipine Besylate 10 mg 03/05/21 06:00 03/05/21 07:08 Amlodipine 10 Mg Tablet PO Not Given DAILY PAZ Ascorbic Acid 1,000 mg 03/05/21 06:00 03/05/21 07:09 Ascorbic Acid 500 Mg Tablet PO Not Given DAILY PAZ Aspirin 81 mg 03/05/21 08:00 03/05/21 09:47 Aspirin 81 Mg Tab.Chew [facility] Atorvastatin Calcium 40 mg 03/04/21 22:00 03/05/21 07:08 Atorvastatin Calcium 40 Mg Tablet PO Not Given BID@0600,2200 [facility] Bisacodyl 10 mg 03/04/21 20:57 Bisacodyl 5 Mg Tablet PO DAILY PRN Constipation Calamine/Phenol 1 applic 03/04/21 18:00 03/05/21 17:01 Menthol/Lanolin/Calamine/Znox 113 Gm Tube TOPICAL 1 applic BID [facility] Administration Protocol Cholecalciferol 125 mcg 03/05/21 06:00 03/05/21 07:09 Cholecalciferol (Vit D3) 25 Mcg Tablet (1,000 Units) PO Not Given DAILY [facility] Enoxaparin Sodium 40 mg 03/05/21 06:00 03/05/21 07:11 Enoxaparin 40 Mg/0.4 Ml Syringe SC 40 mg DAILY PAZ Administration Glucagon 1 mg 03/04/21 22:14 Glucagon 1 Mg/Ml Syringe IM X1 PRN low blood sugar Insulin Glargine 15 units 03/05/21 08:00 03/05/21 09:48 Insulin Glargine 100 Units/Ml Pen SC Not Given BREAKFAST PAZ Magnesium Chloride 128 mg 03/05/21 06:00 03/05/21 07:08 Magnesium Chloride 64 Mg Delay Rel.Tablet PO Not Given DAILY PAZ Magnesium Hydroxide 30 ml 03/04/21 20:56 Magnesium Hydroxide 30 Ml Udc PO DAILY PRN Constipation Metformin HCl 500 mg 03/05/21 07:45 03/05/21 17:01 Metformin (Xr) 500 Mg Tablet PO Not Given TIDCM [facility] Metoprolol Tartrate 100 mg 03/04/21 22:00 03/05/21 03:05 Metoprolol Tartrate 100 Mg Tablet PO Not Given QHS [facility] Metoprolol Tartrate 50 mg 03/05/21 08:00 03/05/21 09:48 Metoprolol Tartrate 50 Mg Tablet PO Not Given BREAKFAST [facility] Nutritional Formula (Lactose Free) 120 ml 03/04/21 22:00 03/05/21 17:00 Glucerna Shake 120 Ml Liquid PO Not Given 4X/DAY [facility] Polyethylene Glycol 17 gm 03/05/21 06:00 03/05/21 07:08 Polyethylene Glycol 3350 17 Gm Packet PO Not Given DAILY PAZ Potassium Chloride 30 meq 03/05/21 08:00 03/05/21 09:47 Potassium Chloride Oral Tablet 10 Meq PO Not Given DAILYCM PAZ Senna/Docusate Sodium 1 tablet 03/05/21 06:00 03/05/21 17:01 Senna/Docusate Sodium 1 Tablet PO Not Given BID PAZ Tuberculin PPD 5 tu 03/12/21 10:00 Tuberculin,Purif.Prot.Deriv. 50 Tu/Ml Vial ID 03/12/21 10:01 X1 ONE Zinc Sulfate 440 mg 03/05/21 06:00 03/05/21 07:09 Zinc Sulfate (50mg Elemental) 220 Mg Capsule PO Not Given DAILY [facility] Problem List (Last Reviewed 02/28/21 @ 02:[address] Yunior Sorto MD) Debility (Acute) Weakness (Acute) Encephalopathy (Acute) Hyponatremia (Chronic) Hypokalemia (Acute) Hypomagnesemia (Acute) Diabetes mellitus (Chronic) Atrial fibrillation (Chronic) Hypertension (Chronic) Vital Signs Temp Pulse Resp BP Pulse Ox 97.9 F 75 16 148/75 H 98 03/05/21 13:35 03/05/21 13:35 03/05/21 13:35 03/05/21 13:35 03/05/21 13:35 Oxygen Delivery Method Room Air Weight: 45.558 kg Body Mass Index (BMI) 16.8 Finger Stick Blood Glucose 212 Sodium 138 mmol/L (136-145) 03/05/21 05:05 Potassium 3.0 mmol/L (3.5-5.1) L 03/05/21 05:05 Chloride 103 mmol/L (98-107) 03/05/21 05:05 Carbon Dioxide 32.0 mmol/L (21.0-32.0) 03/05/21 05:05 Anion Gap 3 (5-15) L 03/05/21 05:05 BUN 12 mg/dL (7-18) 03/05/21 05:05 Creatinine 0.36 mg/dL (0.55-1.02) L 03/05/21 05:05 Est GFR (MDRD) Af Amer 220 mL/min (>60) 03/05/21 05:05 Est GFR (MDRD) Non-Af 182 mL/min (>60) 03/05/21 05:05 BUN/Creatinine Ratio 33.3 RATIO (10-20) H 03/05/21 05:05 Glucose 85 mg/dL (74-106) 03/05/21 05:05 Assessment/Plan: Psychotropic Medications: Unnecessary Medications: Bowel Regimen: - Provider Comments Provider responsibility: Provider responsible to enter orders to implement recommendations Provider Comments to Recommendations by Pharmacy: Agree
--- NOTE | 2021-03-05 14:31 | CASEMGMT ---
Social Work Met with and dtr during compassionate care visit. Family voiced wanting to keep pt alive as long as possible, wanting to fight for her. Inquiring about hospital delirium and if that can be fixed and any measures to help awaken pt. Provided supportive listening and validated feelings. Emphasized with difficult situation with pt and wanting to fight for pt. Explained briefly about delirium and confirmed from nursing this is not delirium, pt would be awake and confused, but can happen given many changes in environment pt has had. However, continued to stress pt has not awoken for any staff member, even when given the sternal rub several times. Encouraged family to think about what pt would want, what is best for her and to focus on the nonverbal cues/body language of pt. Answered more questions for family and leaning on his alexandro. Encouraged to continue to do that and things can change day to day. Family inquired about insurance and LOS/next steps. Explained if pt is unable to participate in therapy, not eating or taking medications three consecutive days - which would be be 03/07, pt would DC. IDT feels home with hospice would be appropriate. Family inquired about a feeding tube. Deferred those conversations and recommendations to Dr. Corea. They explained Dr. Corea already spoke to them and does not appear it would be recommended. Dtr stated it would make her wake up. Reiterated from nursing pt is not guaranteed to wake up with feeding tube. Focused again on pt wishes. Family stated unsure if she would want feeding tube but she did choose to be a DNR-CC. Explained that code status order indicates the pt would not want CPR or any following life-sustaining measures; thus, not wanting a feeding tube. Explained if pt DCs home on hospice and she changes - if she is playing possum to go home, and hospice is no longer wanted, that can be changed and she can have skilled HHC. Family appreciative of information. Provided SW contact information. Family will have compassionate care visits the next two days and will reconvene with any changes. SW to continue to follow. Randi Esparza, CAROLYN MANW
--- NOTE | 2021-03-05 17:02 | NURSING ---
PT STILL WILL NOT WAKE UP TO TAKE ANY MEDS. VITALS DONE. WILL CONTINUE TO MONITOR.
[2021-03-05 22:10] LABS: Bedside Glucose 105 mg/dL (70-110)
[2021-03-05 23:00] VITALS: PULSE 76; RESP 14; O2SAT 96
--- NOTE | 2021-03-05 23:26 | NURSING ---
21:29 This nurse check in room to make sure patient was okay no new changes. Call light within reach.
--- NOTE | 2021-03-05 23:43 | NURSING ---
23:00 pt eyes remains closed during assessment and would responds very little to painful stimuli. You could see eyes movement but nothing else. VS Bp-145/75, RR-14, HR-76, SpO2-96% RA. Respiratory normal, non-labored, and with normal pattern and depth. Used non verbal pain scale no face expression, and lying quietly on left side. Patient did not receive any medication at hs because of the patient condition remains unresponsive to any commands. We are turning and repositioning every 2 hours.
[2021-03-06 06:46] LABS: Bedside Glucose 137 mg/dL (70-110)
--- NOTE | 2021-03-06 08:02 | NURSING ---
Addendum entered by Mildred Lomeli 03/06/21 11:47: Updated Dr. Corea on patient's status. D/t pt vitals and labs at this time did not feel that pt needed any fluids. Will continue to monitor pt call light within reach. Original Note: 5:30 am This patient was moving head, eye movement with eyes closed,and right extremity without being cued. Patient still was not alert and responsive enough to give morning medication to. VS Bp-145/75, RR-14, HR-76, SpO2-96% RA. Rn made aware.
[2021-03-06] MEDS: Menthol/Lanolin/Calamine/Znox 113 GM Tube 1 APPLIC TOPICAL ×2 (08:03→17:52)
[2021-03-06] MEDS: Enoxaparin 40 MG/0.4 ML Syringe SC (08:03)
[2021-03-06 10:00] VITALS: PULSE 91; O2SAT 95
--- NOTE | 2021-03-06 13:00 | CASEMGMT ---
Social Work SW and nurse met with pt Chau and Daughter Luz. Discussed end of life issues and provided emotional support. Discharge plans discussed at length including discharge to extended care facility, home with family, hospice services at home and hospice inpatient unit. Dgt is adamant that pt would not want to go to a senior care. Daughter also voicing concerns that they would not be able to care for pt at home. Nurse provided information on pt care needs at home. SW explained hospice role and provided list of [facility]. Family is in agreement to talk to [facility] to explore options. Referral made to Hospice and they will contact pt dgt to set up time for visit this afternoon. SW will remain available for continued support and to assist with discharge planning. VAL Damon
[2021-03-06 14:00] VITALS: BP 169/87; PULSE 80; RESP 16; TEMP 36.8; O2SAT 97
--- NOTE | 2021-03-06 14:01 | NURSING ---
PER DR GLASGOW, R' MAY HAVE COMPASSIONATE CARE VISITS. MORTICIAN HELPER, MELANIA MCKENNA.
--- NOTE | 2021-03-06 14:53 | CASEMGMT ---
Social Work SW spoke with Martin, [facility] and pt and dgt. Family signed papers for Hospice Care. Pt will remain in this facility until Tuesday and discharge to [facility] on Tuesday with Hospice starting at time of return home. [facility] did state that if family changes their mind and would like pt home earlier than Tuesday, they can make arrangements over the weekend for DME to be placed in the home and pt can return when family ready. Interdisciplinary team notified. Plan: Home with hospice services on Friday 03/09 VAL Damon
[2021-03-06 16:45] LABS: Bedside Glucose 147 mg/dL (70-110)
--- NOTE | 2021-03-06 19:52 | DCINST_ITS ---
- Discharge Diagnoses Current Active Problems: Current Active and Chronic Problems (Last Reviewed 02/28/21 @ 02:[address] Yunior Sorto MD) Debility (Acute) Weakness (Acute) Encephalopathy (Acute) Hyponatremia (Chronic) Hypokalemia (Acute) Hypomagnesemia (Acute) Diabetes mellitus (Chronic) Atrial fibrillation (Chronic) Hypertension (Chronic) You will use the following diet at home:: No restrictions, Regular Your food should be the consistency of: Regular Your liquids should be the consistency of: Regular/Thin Discharge Activity: Return to Normal Activity, May Shower, Use Walker Weight Bearing Status: Weight bearing as tolerated Call your doctor if you observe: Fever of 101 or Higher, Inability to urinate, Inability to have a bowel movement, Shortness of breath, Chest pain, Uncontr olled pain Allergies/Adverse Reactions: Allergies No Known Allergies Allergy (Verified 02/24/21 14:12) Primary Care Physician: Antonino Rosario DO [Primary Care Provider] - Please follow up with your Primary Care Physician in: As needed. Test Results: Test results from this visit will be discussed in further detail at your follow- up appointment, if applicable. Proposed Discharge Date: 03/09/21
--- NOTE | 2021-03-06 19:54 | NURSING ---
Addendum entered by Tricia Harding 03/07/21 02:11: Patient ate a container of Apple sauce. Cottage cheese was ordered for breakfast. Addendum entered by Tricia Harding 03/07/21 01:47: Patient alert and oriented x3. Able to answer all questions asked. Patient's vitals obtained at this time as noted. Patient requesting cottage cheese to eat. Notified Receiving Teller to see if we could get some cottage cheese for patient to eat. Addendum entered by Tricia Harding 03/06/21 22:09: Patient resting in bed. Will not answer questions at this time. Attempted to give HS meds without success. Original Note: Patient yelling out Skye Cheung! This nurse went into room and patient alert and answering questions. Patient asked for some water to drink. Patient drank water and was given a warm wash cloth to wash her face per request.
--- NOTE | 2021-03-06 19:54 | PCM.DC.SUM ---
Discharge Date and Diagnosis - Problem List Patient Problems: Active and Suspected Problems (Last Reviewed 02/28/21 @ 02:[address] Yunior Sorto MD) Debility (Acute) Weakness (Acute) Encephalopathy (Acute) Hypokalemia (Acute) Hypomagnesemia (Acute) Date of Admission: 03/04/21 Date of Discharge: 03/09/21 - Primary Discharge Diagnosis Acute Problems: Active Problems (Last Reviewed 02/28/21 @ 02:[address] Yunior Sorto MD) Debility (Acute) Weakness (Acute) Encephalopathy (Acute) Hypokalemia (Acute) Hypomagnesemia (Acute) - Secondary Discharge Diagnosis Chronic Problems: Chronic Problems (Last Reviewed 02/28/21 @ 02:[address] 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 Hyponatremia (Chronic) Diabetes mellitus (Chronic) Atrial fibrillation (Chronic) Arthritis of left sacroiliac joint (Chronic) Hypertension (Chronic) Diabetes 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 (Chronic) Hypokalemia (Chronic) Chronic hyponatremia (Chronic) Hospital Course and Treatment Imaging Results: 03/04/21 18:01 Diet: Regular - General Food consistency:: Soft & Bite Sized Liquid Consistency:: Regular/Thin Is pt able to select menu?: Yes Diet Comments: magic cup or Ensure pudding w/meals Labs (Last 48 Hours) 03/04/21 03/04/21 03/05/21 19:54 20:53 05:05 WBC 5.0 RBC 3.71 L Hgb 11.1 L Hct 32.7 L MCV 88.1 MCH 29.9 MCHC 33.9 RDW Std Deviation 53.0 H RDW Coeff of Viraj 16.5 H Plt Count 208 MPV 10.0 Immature Gran % (Auto) 0.400 Neut % (Auto) 70.5 H Lymph % (Auto) 18.9 L Bollinger % (Auto) 7.4 Eos % (Auto) 2.4 Baso % (Auto) 0.4 Absolute Neuts (auto) 3.5 Absolute Lymphs (auto) 0.95 Nucleated RBC % 0 Sodium Potassium Chloride Carbon Dioxide Anion Gap BUN Creatinine Est GFR (MDRD) Af Amer Est GFR (MDRD) Non-Af BUN/Creatinine Ratio Glucose Calcium COVID-19 (SHAYNA) Not Detected POC Glucose 87 03/05/21 03/05/21 03/05/21 05:05 06:13 10:41 WBC RBC Hgb Hct MCV MCH MCHC RDW Std Deviation RDW Coeff of Viraj Plt Count MPV Immature Gran % (Auto) Neut % (Auto) Lymph % (Auto) Bollinger % (Auto) Eos % (Auto) Baso % (Auto) Absolute Neuts (auto) Absolute Lymphs (auto) Nucleated RBC % Sodium 138 Potassium 3.0 L Chloride 103 Carbon Dioxide 32.0 Anion Gap 3 L BUN 12 Creatinine 0.36 L Est GFR (MDRD) Af Amer 220 Est GFR (MDRD) Non-Af 182 BUN/Creatinine Ratio 33.3 H Glucose 85 Calcium 8.7 COVID-19 (SHAYNA) POC Glucose 101 114 H 03/05/21 03/06/21 03/06/21 21:17 06:15 16:34 WBC RBC Hgb Hct MCV MCH MCHC RDW Std Deviation RDW Coeff of Viraj Plt Count MPV Immature Gran % (Auto) Neut % (Auto) Lymph % (Auto) Bollinger % (Auto) Eos % (Auto) Baso % (Auto) Absolute Neuts (auto) Absolute Lymphs (auto) Nucleated RBC % Sodium Potassium Chloride Carbon Dioxide Anion Gap BUN Creatinine Est GFR (MDRD) Af Amer Est GFR (MDRD) Non-Af BUN/Creatinine Ratio Glucose Calcium COVID-19 (SHAYNA) POC Glucose 105 137 H 147 H Operations: None Procedures: None Summary of Care Provided: The patient is a 86 year old Female with below past medical history hospitalized for encephalopathy of unknown cause, complicated by hypokalemia, hypomagnesemia, admitted to TCU with debility, here for rehabilitation, strengthening, prior to discharge home with spouse/family. 03/04/2021 Resident spoke with me, was alert and oriented, able to stand up, sit up. Later that night she became unresponsive, refused medications, refused to eat. I told family that the cause of resident's decline is unknown, but life threatening causes have been ruled out due to 2 hospitalizations. Discharge home to daughter's house, [facility]. Patient Problems: Active and Suspected Problems (Last Reviewed 02/28/21 @ 02:[address] Yunior Sorto MD) Debility (Acute) Weakness (Acute) Encephalopathy (Acute) Hypokalemia (Acute) Hypomagnesemia (Acute) - Physical Exam Vitals/I&O's: Vital Signs Temp Pulse Resp BP Pulse Ox 98.2 F 80 16 169/87 H 97 03/06/21 14:00 03/06/21 14:00 03/06/21 14:00 03/06/21 14:00 03/06/21 14:00 Oxygen Delivery Method Room Air Weight: 45.558 kg Body Mass Index (BMI) 16.8 Finger Stick Blood Glucose 212 Intake and Output for Last 24 Hours 03/04/21 03/05/21 03/06/21 23:59 23:59 23:59 Intake Total 0 / 0 Balance 0 / 0 Laboratory Results 03/05/21 21:17: POC Glucose 105 03/06/21 06:15: POC Glucose 137 H 03/06/21 16:34: POC Glucose 147 H Current Medications Acetaminophen (Acetaminophen 500 Mg Tablet) 1,000 mg PO Q6H PRN PRN PRN Reason: Pain Score 1-10 Amlodipine Besylate (Amlodipine 10 Mg Tablet) 10 mg PO DAILY [facility] Last Admin: 03/06/21 05:08 Dose: Not Given Documented by: Ascorbic Acid (Ascorbic Acid 500 Mg Tablet) 1,000 mg PO DAILY [facility] Last Admin: 03/06/21 05:08 Dose: Not Given Documented by: Aspirin (Aspirin 81 Mg Tab.Chew) 81 mg PO DAILYCM [facility] Last Admin: 03/06/21 08:05 Dose: Not Given Documented by: Atorvastatin Calcium (Atorvastatin Calcium 40 Mg Tablet) 40 mg PO BID@0600,2200 [facility] Last Admin: 03/06/21 05:07 Dose: Not Given Documented by: Bisacodyl (Bisacodyl 5 Mg Tablet) 10 mg PO DAILY PRN PRN Reason: Constipation Calamine/Phenol (Menthol/Lanolin/Calamine/Znox 113 Gm Tube) 1 applic TOPICAL BID [facility]; Protocol Last Admin: 03/06/21 17:52 Dose: 1 applic Documented by: Cholecalciferol (Cholecalciferol (Vit D3) 25 Mcg Tablet (1,000 Units)) 125 mcg PO DAILY [facility] Last Admin: 03/06/21 07:18 Dose: Not Given Documented by: Enoxaparin Sodium (Enoxaparin 40 Mg/0.4 Ml Syringe) 40 mg SC DAILY [facility] Last Admin: 03/06/21 08:03 Dose: 40 mg Documented by: Glucagon (Glucagon 1 Mg/Ml Syringe) 1 mg IM X1 PRN PRN Reason: low blood sugar Insulin Glargine (Insulin Glargine 100 Units/Ml Pen) 15 units SC BREAKFAST [facility] Last Admin: 03/06/21 08:05 Dose: Not Given Documented by: Magnesium Chloride (Magnesium Chloride 64 Mg Delay Rel.Tablet) 128 mg PO DAILY [facility] Last Admin: 03/06/21 05:07 Dose: Not Given Documented by: Magnesium Hydroxide (Magnesium Hydroxide 30 Ml Udc) 30 ml PO DAILY PRN PRN Reason: Constipation Metformin HCl (Metformin (Xr) 500 Mg Tablet) 500 mg PO TIDCM [facility] Last Admin: 03/06/21 17:49 Dose: Not Given Documented by: Metoprolol Tartrate (Metoprolol Tartrate 100 Mg Tablet) 100 mg PO QHS [facility] Last Admin: 03/05/21 22:57 Dose: Not Given Documented by: Metoprolol Tartrate (Metoprolol Tartrate 50 Mg Tablet) 50 mg PO BREAKFAST [facility] Last Admin: 03/06/21 08:05 Dose: Not Given Documented by: Nutritional Formula (Lactose Free) (Glucerna Shake 120 Ml Liquid) 120 ml PO 4X/DAY [facility] Last Admin: 03/06/21 17:48 Dose: Not Given Documented by: Polyethylene Glycol (Polyethylene Glycol 3350 17 Gm Packet) 17 gm PO DAILY [facility] Last Admin: 03/06/21 05:07 Dose: Not Given Documented by: Potassium Chloride (Potassium Chloride Oral Tablet 10 Meq) 30 meq PO DAILYCM [facility] Last Admin: 03/06/21 08:05 Dose: Not Given Documented by: Senna/Docusate Sodium (Senna/Docusate Sodium 1 Tablet) 1 tablet PO BID [facility] Last Admin: 03/06/21 17:49 Dose: Not Given Documented by: Tuberculin PPD (Tuberculin,Purif.Prot.Deriv. 50 Tu/Ml Vial) 5 tu ID [id number] ONE Stop: 03/12/21 10:01 Zinc Sulfate (Zinc Sulfate (50mg Elemental) 220 Mg Capsule) 440 mg PO DAILY [facility] Last Admin: 03/06/21 07:18 Dose: Not Given Documented by: Discharge Diet: No Restrictions Discharge Activity: Return to Normal Activity, May Shower, Use Walker Weight Bearing Status: Weight bearing as tolerated Call your doctor if you observe: Fever of 101 or Higher, Inability to urinate, Inability to have a bowel movement, Shortness of breath, Chest pain, Uncontrolled pain Primary Care Physician: Antonino Rosario DO [Primary Care Provider] - Please follow up with your Primary Care Physician in: As needed. Disposition: Home with Hospice Minutes spent on discharge:: 35 Patient Condition:: Poor Medical Necessity - Tobacco Use Smoking Status: Never smoker Tobacco Use: Non-smoker Meaningful Use Info Meaningful Use Diagnoses (Choose all that apply): None applicable
[2021-03-06 21:55] LABS: Bedside Glucose 159 mg/dL (70-110)
[2021-03-07 01:56] VITALS: BP 159/74; PULSE 73; RESP 16; TEMP 36.7; O2SAT 100
--- NOTE | 2021-03-07 02:12 | ONC.PHONE ---
WENT TO CHANGE PATIENT AND PATIENT WAS WIDE AWAKE AND RESPONSIVE. EYES WIDE OPEN.
[2021-03-07] MEDS: Acetaminophen 500 MG Tablet 1000 MG PO ×2 (03:43→20:13)
[2021-03-07] MEDS: Glucerna Shake 120 ML LIQUID PO ×2 (03:45→18:02)
[2021-03-07] MEDS: Atorvastatin Calcium 40 MG Tablet PO ×2 (05:12→20:13)
[2021-03-07] MEDS: amLODIPine 10 MG Tablet PO (05:12)
[2021-03-07] MEDS: Magnesium Chloride 64 MG Delay Rel.Tablet 128 MG PO (05:12)
[2021-03-07] MEDS: Cholecalciferol (VIT D3) 25 MCG TABLET (1,000 UNITS) 125 MCG PO (05:12)
[2021-03-07] MEDS: Senna/Docusate Sodium 1 Tablet PO ×2 (05:12→18:01)
[2021-03-07] MEDS: Ascorbic Acid 500 MG Tablet 1000 MG PO (05:13)
[2021-03-07] MEDS: Enoxaparin 40 MG/0.4 ML Syringe SC (05:14)
[2021-03-07] MEDS: Menthol/Lanolin/Calamine/Znox 113 GM Tube 1 APPLIC TOPICAL ×2 (05:17→18:01)
[2021-03-07 06:45] LABS: Bedside Glucose 233 mg/dL (70-110)
[2021-03-07] MEDS: Aspirin 81 MG TAB.CHEW PO (08:25)
[2021-03-07] MEDS: metFORMIN (XR) 500 MG Tablet PO ×3 (08:25→18:01)
[2021-03-07 08:27] VITALS: BP 159/74; PULSE 73
[2021-03-07] MEDS: Metoprolol Tartrate 50 MG Tablet PO (08:27)
[2021-03-07 13:47] VITALS: BP 103/51; PULSE 78; RESP 18; TEMP 36.8; O2SAT 96
--- NOTE | 2021-03-07 16:06 | NURSING ---
pt alert and awake, visitor at bedside. pleasant and cooperative. pt wanting knee high socks changed to another pair she brought from home. applied fresh socks and RT foot brace. own sneakers on. pt sitting in recliner chair, call light in reach. alarms in place for safety.
[2021-03-07 20:12] VITALS: BP 109/62; PULSE 77; RESP 14; O2SAT 96
[2021-03-07 20:13] VITALS: BP 109/62; PULSE 77
[2021-03-07] MEDS: Metoprolol Tartrate 100 MG Tablet PO (20:13)
[2021-03-07 20:15] VITALS: PULSE 77; RESP 14; O2SAT 96
[2021-03-07 21:30] LABS: Bedside Glucose 188 mg/dL (70-110)
[2021-03-08 04:49] VITALS: BP 152/80; PULSE 67; RESP 14; TEMP 36.7; O2SAT 98
[2021-03-08] MEDS: Enoxaparin 40 MG/0.4 ML Syringe SC (04:50)
[2021-03-08] MEDS: Ascorbic Acid 500 MG Tablet 1000 MG PO (04:50)
[2021-03-08] MEDS: Cholecalciferol (VIT D3) 25 MCG TABLET (1,000 UNITS) 125 MCG PO (04:51)
[2021-03-08] MEDS: Senna/Docusate Sodium 1 Tablet PO (04:51)
[2021-03-08] MEDS: amLODIPine 10 MG Tablet PO (04:51)
[2021-03-08] MEDS: Magnesium Chloride 64 MG Delay Rel.Tablet 128 MG PO (04:51)
[2021-03-08] MEDS: Menthol/Lanolin/Calamine/Znox 113 GM Tube 1 APPLIC TOPICAL (04:56)
[2021-03-08] MEDS: Atorvastatin Calcium 40 MG Tablet PO (04:56)
[2021-03-08] MEDS: Glucerna Shake 120 ML LIQUID PO (05:00)
[2021-03-08 06:26] LABS: Bedside Glucose 212 mg/dL (70-110)
[2021-03-08 08:57] VITALS: PULSE 80
[2021-03-08 12:21] VITALS: PULSE 80; RESP 16; O2SAT 94
[2021-03-08 14:40] VITALS: BP 136/66; PULSE 73; RESP 15; TEMP 37.3; O2SAT 96
[2021-03-08 21:31] LABS: Bedside Glucose 81 mg/dL (70-110)
--- NOTE | 2021-03-08 22:50 | NURSING ---
04:50 am Patient was alert and orient x3. Pleasant and cooperative with care took all medication that was order. Patient was talking with this nurse about my hair and some people that she knew and wonder if I knew them. Aide assist patient with walker to the toilet and was providing morning care.
--- NOTE | 2021-03-08 22:56 | NURSING ---
This nurse went into the patient room to give hs medication and patient would open eyes or respond to any of my question that were been asked. VS Bp-153/77, HR-78, RR-14, Temp 98.5 temporal, SpO2-96% RA. Lungs clear anterior and posterior, unlabored breathing, capillary refill<3. Provided mouth care with a toothette patient move tongue once toothette was in move and swallowed but was not given any hs medication due to not following other commands. Will continue to monitor during this shift.
--- NOTE | 2021-03-09 00:50 | PCA ---
Taye and I washed up pt.for bed changed night clothes did mouth care and turn her on her side Pt. did not wake up at all.
[2021-03-09 05:00] VITALS: BP 142/77; PULSE 77; RESP 12; TEMP 36.7; O2SAT 97
[2021-03-09 06:21] LABS: Bedside Glucose 83 mg/dL (70-110)
[2021-03-09] MEDS: Menthol/Lanolin/Calamine/Znox 113 GM Tube 1 APPLIC TOPICAL ×2 (06:47→22:22)
--- NOTE | 2021-03-09 07:16 | NURSING ---
Patient unresponsive to commands was not able to give morning medication. Rn aware.
[2021-03-09 09:46] VITALS: PULSE 86; O2SAT 94
[2021-03-09] MEDS: Glucagon 1 MG/ML Syringe IM (10:58)
--- NOTE | 2021-03-09 11:23 | PCM.PN.BLA ---
Progress Note I was asked to see this patient who is unresponsive. She was scheduled to go home with hospice today. It was reported to me that she woke up Tuesday morning and was conversant and she has been unresponsive since Tuesday. I reviewed the H&P done by Dr. Corea. I spoke to her daughter Luz and her Chau. Chau tells me that Geraldine has said to him at times that she is ready to go to have. She loves to walk and now has foot drop on the right and is too weak to walk. She has not been eating and she has not been responding when people talk to her. She is not able to take her oral medications. Blood sugar last night was 81 and the fasting blood sugar today is 83. She did not receive Lantus this morning and she has not been able to take the Metformin for several days. Oral intake is very poor. She has severe malnutrition. Lab done on 03/05/2021 was reviewed. White blood cell count was normal and the differential was unremarkable. Hemoglobin was 11.1 and the platelets were normal. Potassium was low at 3.0 and she was ordered a potassium supplement however she has not been taking oral medications. The sodium was 138 and the BUN was 12 with a creatinine of 0.36. Urine analysis done on 02/27/2021 showed 0 bacteria and 0 WBCs. TSH in January and the fasting cortisol were within normal limits. The EMR from recent acute hospital stay was reviewed and the discharge summary by Dr. Hudson. She was admitted to the hospital with a diagnosis of acute encephalopathy and no reason was found. She had just been discharged from the hospital 1 day prior to this most recent admission for a similar diagnosis. A brain CT showed chronic involutional changes of the brain. She was lethargic the whole entire time she was on MedSurg 3 and she received IV fluids and potassium replacement IV. 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 She was not on an antidepressant at admission to the hospital. She has been afebrile since admission to the acute hospital. Vital signs are stable and her blood pressure is within normal limits. Heart rate is within normal limits and the rhythm is regular. She is maintaining appropriate oxygen saturation on room air. Breath sounds are clear anterior and lateral but she has shallow respirations. She is not tachypneic. She resists me trying to open her eyes but, she has no response to painful stimulus. H- RRR without ectopy, no gallop and no MM abd - scaphoid, no guarding with palpation, no edema. Foot drop on the R equivocal babinski's she resisted me trying to open her mouth. She has skin tenting Following 1 mg of IM Glucagon she had deeper respirations and she turned her head to her 's voice? OR she is just more comfortable with her head turned to the R. Impressions 1. Encephalopathy - etiology unknown. W/U has been unremarkable. She seemed to rally a little after fluids. 2. I suspect she has severe depression and has lost the will to live. 3. R foot drop 4. DM II - BS's on the low side today but still WNL. Has not been getting Lantus or Metformin. No significant response to Glucagon. Hold all oral meds DC Lantus and Glucophage D5 1/2 NS at 100 cc/hr CBC with diff and a BMP now. Her dtr is very hopeful that she is going to wake up and rally. She asked about a MRI to see if she is has had another stroke......I explained that would not change treatment at this time and that she is hospice appropriate. She asked if we could delay DC until tomorrow because her father has a appt for a pre-op physical this afternoon and she needs to take him. She was told we would be able to do that for her. If she does wake upwith hydration we would start her on an antidepressant. Plan is still for DC home tomorrow with hospice. STROKE Vital Signs/Narrative: Vital Signs Pulse Pulse Ox 03/09/21 09:46 [id number] Inpatient E&M: [id number] Subs Hosp L3
[2021-03-09 11:36] LABS: Bedside Glucose 137 mg/dL (70-110)
[2021-03-09] MEDS: Dext 5%-0.45% NS 1,000 ML 100 ML IV (11:58)
--- NOTE | 2021-03-09 12:21 | NURSING ---
Straight cath to obtain urine sample attempted at this time, a couple of small drops of urine from catheter was present but not enough for a sample, will reattempt later after pt has received more fluids
[2021-03-09 12:42] LABS: Absolute Lymphocyte Count 1.11 X10^3/uL (0.83-4.51); Absolute Neutrophil Count 8.3 X10^3/uL (2.0-7.7); Basophil# 0.04 X10^3/uL; Basophil% 0.4 % (0-1); Eosinophil# 0.06 X10^3/uL; Eosinophils% 0.6 % (0-5); Hematocrit 36.6 % (37-47); Hemoglobin 12.1 g/dL (12.0-15.0); Lymphocyte # 1.11 X10^3/ul (4.0); Lymphocyte % 10.8 % (19-41); Mean Corp Hgb Conc 33.1 g/dL (32-36); Mean Corpuscular Hgb 29.6 pg (27.0-32.0); Mean Corpuscular Volume 89.5 fL (81-99); Mean Platelet Vol. 9.2 fl (6.2-12.0); Monocyte# 0.62 X10^3/uL; Monocyte% 6.1 % (0-10); NRBC Flagged by Analyzer 0 % (0-5); Neutrophil # 8.34 X10^3/uL (2.7-7.7); Neutrophil % 81.4 % (47-70); Platelet Count 238 K/mm3 (150-450); RBC Distribution Width CV 16.9 % (11.6-14.6); RBC Distribution Width SD 54.9 fl (35.1-43.9); Red Blood Count 4.09 M/mm3 (4.2-5.4); White Blood Count 10.2 K/mm3 (4.4-11.0)
[2021-03-09 13:16] LABS: Anion Gap 4 (5-15); BUN 28 mg/dL (7-18); BUN/Creat Ratio 58.8 RATIO (10-20); Calcium,Total 9.2 mg/dL (8.5-10.1); Chloride 100 mmol/L (98-107); Creatinine, Serum 0.48 mg/dL (0.55-1.02); EST Glomerular Filtration Rate 132 mL/min (>60); Est Glom Filt Rate - Afr Amer 160 mL/min (>60); Estimated Creatinine Clearance 29.28 ml/min; Glucose 173 mg/dL (74-106); Sodium Level 138 mmol/L (136-145)
--- NOTE | 2021-03-09 14:06 | NURSING ---
Motor Vehicles Supervisor Note: Res in bed, eyes closed. Gave hand massage with lotion, brushed hair. Spoke to resident. Also offering resident scents of lotions and perfume products. No response to any stimuli.
[2021-03-09 14:13] VITALS: BP 146/78; PULSE 78; RESP 21; TEMP 36.8; O2SAT 98
[2021-03-09 14:38] LABS: Mucous, Urine 0 SEEN /hpf (<or=2+); Squamous Epithelial Cells - UA 0 SEEN /hpf (5-10)
[2021-03-09 15:14] LABS: Color, Urine Yellow (Yellow); Glucose, Dipstick 250 mg/dl (Normal); Ketone-Dipstick 50 mg/dl (Negative); Leukocyte Esterase-Dipstick 500 /ul (Negative); Nitrite-Dipstick Positive (Negative); Occult Blood-Urine 250 /ul (Negative); Protein-Dipstick 100 mg/dl (Negative); Urine Bilirubin Dipstick Negative (Negative); Urine Clarity Turbid (Clear); Urine Urobilinogen Normal (Normal)
[2021-03-09 15:31] LABS: Bedside Glucose 183 mg/dL (70-110)
[2021-03-09 16:38] LABS: Bacteria 3+ /hpf (None Seen); Red Blood Cells-Urine 25-50 SEEN /hpf (0-5); White Blood Cells >100 SEEN /hpf (0-5)
[2021-03-09] MEDS: Potassium Chloride 10mEq/100mL 10 MEQ/100 ML IV.SOLN. 100 MEQ IV BOLUS ×3 (17:56→22:16)
--- NOTE | 2021-03-09 18:21 | NURSING ---
N.O. culture and sensitivity, this nurse called lab and stated to send the urine collected earlier for u/a out for culture, lab stated they would track it down and send it, N.O. 3 bags IV potassium chloride 10meq for potassium 3.0, IV unasyn ordered for UTI, KCL 20meq in d5 1/2 NS for maintenance fluid, recheck BMP 03/10/21
[2021-03-09 21:26] LABS: Bedside Glucose 175 mg/dL (70-110)
[2021-03-09 22:23] VITALS: PULSE 67
[2021-03-10 02:17] VITALS: PULSE 68; O2SAT 95
[2021-03-10 02:51] LABS: Bedside Glucose 145 mg/dL (70-110)
[2021-03-10] MEDS: Menthol/Lanolin/Calamine/Znox 113 GM Tube 1 APPLIC TOPICAL (06:09)
[2021-03-10] MEDS: Enoxaparin 40 MG/0.4 ML Syringe SC (06:12)
[2021-03-10 06:28] LABS: Anion Gap 5 (5-15); BUN 14 mg/dL (7-18); BUN/Creat Ratio 32.3 RATIO (10-20); Calcium,Total 8.9 mg/dL (8.5-10.1); Chloride 97 mmol/L (98-107); Creatinine, Serum 0.43 mg/dL (0.55-1.02); EST Glomerular Filtration Rate 147 mL/min (>60); Est Glom Filt Rate - Afr Amer 178 mL/min (>60); Estimated Creatinine Clearance 29.28 ml/min; Glucose 178 mg/dL (74-106); Potassium 3.2 mmol/L (3.5-5.1); Sodium Level 135 mmol/L (136-145)
[2021-03-10 06:40] LABS: Bedside Glucose 206 mg/dL (70-110)
[2021-03-10 07:58] VITALS: BP 151/79; PULSE 86
--- NOTE | 2021-03-10 08:03 | NURSING ---
PT STILL UNRESPONSIVE,NOT TAKING MEDS. IV RUNNING WITH POTASSIUM. UPDATED DAUGHTER THIS MORNING.
[2021-03-10 10:00] VITALS: PULSE 88; RESP 12; O2SAT 96
[2021-03-10 10:29] VITALS: BP 150/76; PULSE 82; RESP 16; TEMP 37.1; O2SAT 96
--- NOTE | 2021-03-16 13:53 | MDS.RN ---
Information for the mds was obtained from review of the clinical record, interview of resident, staff, and direct observation of resident's care.
== END 2021-03-10 11:00 | disposition hospice, home (50) | DRG 640 ==
PROVIDERS: Internal Medicine; Admitting Provider Family Medicine Geriatric Medicine; PCP Preventive Medicine Occupational Medicine; Visit Provider Family Medicine Geriatric Medicine
DX: E87.6 Hypokalemia (principal); E43 Unspecified severe protein-calorie malnutrition; G93.40 Encephalopathy, unspecified; I48.20 Chronic atrial fibrillation, unspecified; Z68.1 Body mass index [BMI] 19.9 or less, adult; I10 Essential (primary) hypertension; E78.5 Hyperlipidemia, unspecified; E55.9 Vitamin D deficiency, unspecified; E60 Dietary zinc deficiency; E87.1 Hypo-osmolality and hyponatremia; M21.371 Foot drop, right foot; E11.40 Type 2 diabetes mellitus with diabetic neuropathy, unspecified; M46.1 Sacroiliitis, not elsewhere classified; Z79.899 Other long term (current) drug therapy; Z79.82 Long term (current) use of aspirin; Z79.4 Long term (current) use of insulin
CPT/HCPCS: 36415; 80048; 81001; 82962; 85025; 87086; 87088; 87186; 87635; 97110; 97116; 97162; 97165; 97530; 97535; J7050; J1610; J7799; U0002